=== PATIENT | female | born 1990 | race Caucasian/White ===

== ENCOUNTER 2019-12-25 18:00 | Emergency (ER) | payer OTHER, SELFPAY ==
[2019-12-25 18:07] VITALS: BP 116/67; PULSE 108; RESP 20; TEMP 36.7; O2SAT 100
--- NOTE | 2019-12-25 18:15 | ED.SKABFB ---
HPI - Skin/Abscess/Foreign Bdy General Chief complaint: Wound/Laceration Stated complaint: lt hand injury Time Seen by Provider: 12/25/19 18:15 Source: patient and RN notes reviewed History of Present Illness HPI narrative: Patient is a 29-year-old female that presents the urgent care with complaints of a laceration to both the fourth and fifth digits of the left hand. Patient states that it occurred last night around 5 PM and she saw her cousin, who is an ER physician, who placed glue to the lacerations and bandages. Patient states that they have been continuously seeping blood since then and she feels that she needs the wounds rechecked . No other acute complaints. No acute distress noted. Patient read the plan of care. Related Data Home Medications Medication Instructions Recorded Confirmed No Home Medications 12/25/19 12/25/19 Allergies Allergy/AdvReac Type Severity Reaction Status Date / Time Sulfa (Sulfonamide Allergy Mild Rash Verified 12/25/19 18:12 Antibiotics) Review of Systems Review of Systems: Narrative: CONSTITUTIONAL: Denies fever, chills, or sweats. EYES: Denies visual changes, redness, or discharge. ENT: Denies rhinorrhea, congestion, sore throat, or otalgia. CARDIOVASCULAR: Denies chest pain, palpitations, or edema. RESPIRATORY: Denies cough or dyspnea. GASTROINTESTINAL: Denies abdominal pain, nausea, vomiting, or diarrhea. GENITOURINARY: Denies dysuria or hematuria. SKIN: Reports of a laceration to the fourth and fifth digits of the left hand MUSCULOSKELETAL: Denies back pain, joint pain, or myalgia. NEUROLOGIC: Denies headache, numbness, or weakness. PMFSH Comments At the time of my signature, I reviewed and agree with the nursing past medical, surgical, social, and family history. There is no relevant family history pertinent to the patient complaint. Exam Narrative: Exam Narrative: GENERAL: This is a well-nourished, well-developed patient, in no apparent distress. HEAD: normocephalic, atraumatic. EYES: PERRL. Sclera clear/white. Vision is grossly intact. EARS: External ears normal NOSE: External nose normal with no obvious nasal discharge THROAT: Mucous membranes moist NECK: Neck supple CARDIOVASCULAR: Regular rate and rhythm without murmurs, gallops, or rubs. RESPIRATORY: Clear to auscultation. Breath sounds equal bilaterally. No wheezes, rales, or rhonchi. SKIN: 1 cm lacerations noted to both the distal palmar aspect of the fourth and fifth digits, approximated with Dermabond warm, intact with no suspicious lesions or rash, good texture and turgor. NEURO: awake, alert, and oriented to person, place and time. There were no obvious focal neurologic abnormalities. EXTREMITIES: No clubbing, cyanosis, or edema. Upper extremity left capillary refill less than 2 seconds Course Vital Signs Vital signs: Vital Signs Temperature 98.1 F 12/25/19 18:07 Pulse Rate 108 H 12/25/19 18:07 Respiratory Rate 12/25/19 18:07 Blood Pressure 116/67 12/25/19 18:07 Pulse Oximetry 100 12/25/19 18:07 Temperature 98.1 F 12/25/19 18:07 Pulse Rate 108 H 12/25/19 18:07 Respiratory Rate 12/25/19 18:07 Blood Pressure 116/67 12/25/19 18:07 Pulse Oximetry 100 12/25/19 18:07 Reviewed Procedures Laceration Laceration 1: Site: other (Fourth and fifth digits of the left hand) Side (If applicable): left Description: linear Local Anesthetic: none Pre-repair: other (Wounds had been closed with Dermabond prior to arrival) ====== Skin Level ====== Skin layer closed with: steri strips ====== Subcutaneous Layer ====== ====== Muscle Layer ====== ====== Tendon Layer ====== Dressing: Reinforced 1 cm glued Dermabond lacerations to the left fourth and fifth digits with 3 Steri-Strips per laceration and Covan. Patient tolerated well. Removed other dressing using technique care and normal saline. Wounds approx
--- NOTE | 2019-12-25 18:38 | PC.NURSE ---
1 cm lacerations to Rt 4th and 5th fingertips dorsally--dressings from yesterday after glued by relative soaked off--areas cleansed with NSS and technicare--steri strips applied to both and coban applied ---proceedure by Hernando De La Cruz [employer] SPECIALIST and dressings by Rhoda Fowler RT
== END 2019-12-25 18:42 | disposition home or self-care (01) ==
PROVIDERS: Emergency Provider Nurse Practitioner Family
DX: S61.215A Laceration without foreign body of left ring finger without damage to nail, initial encounter (principal); S61.217A Laceration without foreign body of left little finger without damage to nail, initial encounter; X58.XXXA Exposure to other specified factors, initial encounter
CPT/HCPCS: 99212; G0463

== ENCOUNTER 2019-12-27 15:03 | Emergency (ER) | payer OTHER, SELFPAY ==
[2019-12-27 15:09] VITALS: BP 108/57; PULSE 95; RESP 16; TEMP 36.6; O2SAT 99
--- NOTE | 2019-12-27 15:38 | ED.URI ---
HPI - URI/Sore Throat General Chief Complaint: Upper Respiratory Infection Stated Complaint: cough/chest congestion/runny nose Time Seen by Provider: 12/27/19 15:29 Source: patient and RN notes reviewed Mode of arrival: ambulatory Limitations: no limitations History of Present Illness HPI Narrative: Patient presents today complaining of nasal congestion with green nasal drainage, sinus pressure, cough, shortness of breath. Symptoms have been present for 2 weeks and symptoms have been worsening since onset. Denies fever. She has been taking Tylenol. Patient is currently 30 weeks , . MD elicited complaint: cough and nasal congestion Related Data Home Medications Medication Instructions Recorded Confirmed [id number] fumarate-FA tablet PO 12/27/19 [] fexofenadine [Cass Allergy] 180 mg PO DAILY 12/27/19 12/27/19 omega 9-pxb-slm-fish oil [Fish Oil] 1 cap PO DAILY 12/27/19 12/27/19 Allergies Allergy/AdvReac Type Severity Reaction Status Date / Time Sulfa (Sulfonamide Allergy Mild Rash Verified 12/25/19 18:12 Antibiotics) Review of Systems Review of Systems: Narrative: CONSTITUTIONAL: Denies body aches, fever, chills, or sweats. EYES: Denies visual changes, redness, or discharge. ENT: Denies rhinorrhea, sore throat, or otalgia.+ Nasal congestion, sinus pressure CARDIOVASCULAR: Denies chest pain, palpitations, or edema. RESPIRATORY: + Cough, shortness of breath GASTROINTESTINAL: Denies abdominal pain, nausea, vomiting, or diarrhea. GENITOURINARY: Denies dysuria or hematuria. SKIN: Denies rash, itching, or wounds. MUSCULOSKELETAL: Denies back pain, joint pain, or myalgia. NEUROLOGIC: Denies headache, numbness, tingling, or weakness. PSYCH: Denies depression or anxiety. PMFSH Comments At time of signature, I have reviewed and agree with nursing past medical, surgical, social and family history unless otherwise noted. Please see nursing chart for further information. There is no relevant family history pertinent to the presenting complaint Exam Narrative: Exam Narrative: GENERAL: Mildly ill-appearing, well-nourished, and in no acute distress. HEAD: Normocephalic, atraumatic. EYES: EOMI. No redness or drainage. Conjunctivae normal. ENT: Mucous membranes pink and moist. Nares congested. TMs normal bilaterally. Throat normal. Uvula midline. NECK: Normal AROM. Supple. No lymphadenopathy. CHEST: No respiratory distress. Clear to auscultation. HEART: Regular rate and rhythm. No murmur appreciated. Normal peripheral pulses. ABDOMEN: Soft, nontender, normal active bowel sounds. Gravid abdomen MUSCULOSKELETAL: No bony tenderness. EXTREMITIES: Normal range of motion. No edema. SKIN: Warm, dry, no rash. NEURO: No focal deficits. Alert and oriented x3. Gait steady. PSYCH: Normal affect. No signs of depression or anxiety. Course Vital Signs Vital signs: Vital Signs Temperature 97.9 F 12/27/19 15:09 Pulse Rate 95 12/27/19 15:09 Respiratory Rate 16 12/27/19 15:09 Blood Pressure 108/57 L 12/27/19 15:09 Pulse Oximetry 99 12/27/19 15:09 Temperature 97.9 F 12/27/19 15:09 Pulse Rate 95 12/27/19 15:09 Respiratory Rate 16 12/27/19 15:09 Blood Pressure 108/57 L 12/27/19 15:09 Pulse Oximetry 99 12/27/19 15:09 At time of signature, I have reviewed and agree with nursing past medical, surgical, social and family history unless otherwise noted. Please see nursing chart for further information. There is no relevant family history pertinent to the presenting complaint MDM - URI/Sore Throat Differential Diagnosis Differential diagnosis: Likely upper respiratory infection, otitis media, sinusitis, viral infection, bronchitis and other (Pneumonia) Critical Care Time Critical Care Time Critical Care Time: No Discharge Plan Discharge Clinical Impression: Bronchitis Upper respiratory infection Qualifiers: URI type: unspecified URI Qualified Code(s): J
== END 2019-12-27 15:46 | disposition home or self-care (01) ==
PROVIDERS: Emergency Provider Nurse Practitioner
DX: O99.513 Diseases of the respiratory system complicating pregnancy, third trimester (principal); Z3A.30 30 weeks gestation of pregnancy; J40 Bronchitis, not specified as acute or chronic; J06.9 Acute upper respiratory infection, unspecified
CPT/HCPCS: 99213; G0463

== ENCOUNTER 2020-02-27 06:31 | Inpatient (IN) | payer OTHER, SELFPAY ==
[2020-02-27] VITALS (68 sets, daily range): BP systolic 82–164; BP diastolic 39–81; PULSE 65–121; RESP 16; TEMP 36.6–37.1; O2SAT 98–100; BMI 30.4
[2020-02-27 07:48] LABS: Basophils Percent Auto 0.3 % (0.2-1.2); Eosinophils Absolute Auto 0.1 K/mm3 (0-0.3); Eosinophils Percent Auto 1.4 % (0-4.4); Hematocrit 38.6 % (37.0-47.0); Hemoglobin 13.1 g/dL (12.0-15.0); Immature Granulocyte Absolute 0.03 K/mm3 (0.00-0.031); Immature Granulocyte Percent A 0.4 % (0-0.5); Lymphocytes Absolute Auto 1.94 K/mm3 (0.9-3.2); Lymphocytes Percent Auto 27.2 % (18.3-44.2); Mean Corpuscular HGB Conc 33.9 g/dl (32-36); Mean Corpuscular Hemoglobin 31.9 pg (26-34); Mean Corpuscular Volume 93.9 fl (80-100); Mean Platelet Volume 11.1 fl (7.4-10.4); Monocytes Percent Auto 13.3 % (2.6-8.5); Neutrophils Absolute Auto 4.1 K/mm3 (1.3-6.7); Neutrophils Percent Auto 57.4 % (45.5-73.1); Platelet Count Result 175 k/mm3 (150-375); Red Blood Count 4.11 M/mm3 (4.2-5.4); Red Cell Distribution Width 13.2 % (11.5-14.5); White Blood Count 7.1 K/mm3 (4.5-10.0)
[2020-02-27] MEDS: LACTATED RINGERS 1,000 ML 125 ML IV CONT ×2 (08:15→14:03)
[2020-02-27] MEDS: OXYTOCIN 30 UNITS/NS 500 ML 30 UNITS/500 ML BAG IV CONT (08:16)
--- NOTE | 2020-02-27 08:31 | WPDOBADMIT ---
Obstetrics - Admit Note Admission Note: record reviewed. Additions to the history and/or subsequent changes in the physical findings follow. 30 y/o at 39 3/7 weeks here for induction of labor. GBS neg. H/o VAVD of baby weighing 8#3oz at 41 weeks gestation. AVSS NST reactive TOCO: contractions irregularly ABD soft, nontender, gravid, vertex EXT nontender Cervix 3/50/-2. AROM with clear fluid. A: IUP at 39 3/7 weeks with favorable cervix, desiring induction of labor. P: Oxytocin. Anticipate .
--- NOTE | 2020-02-27 13:03 | PM.OBPNLAB ---
Pain Control Date/time seen: 02/27/20 13:03 Comments: Feeling more pain. Pelvic Exam Comments: AVSS NST reactive TOCO: contractions every 3-4 min 3-4/50/-2 Assessment and Plan Comments: Continue labor.
--- NOTE | 2020-02-27 14:09 | WPDANESEPP ---
Anes - Eval Pre Procedure Procedure: labor epidural Date/Time: 02/27/20 14:09 Surgeon: Mikey Preop Diagnosis: Abd pain with contractions Pre Op Diagnosis: Induction of Labor Patient Data Age: 29 Gender: F Height: 5 ft 3 in Weight: 78 kg Last Vital Signs Temp 98.7 F 02/27/20 14:05 Pulse 98 02/27/20 14:01 BP 138/71 02/27/20 14:01 Allergies Allergy/AdvReac Type Severity Reaction Status Date / Time Sulfa (Sulfonamide Allergy Mild Rash Verified 12/25/19 18:12 Antibiotics) Home Medications Medication Instructions Recorded Confirmed Type [id number] fumarate-FA tablet PO 12/27/19 History [] amoxicillin-pot clavulanate 1 tablet PO Q12H 10 Days #20 tablet 12/27/19 Rx [Augmentin] fexofenadine [Cass Allergy] 180 mg PO DAILY 12/27/19 12/27/19 History omega 7-syf-gjl-fish oil [Fish Oil] 1 cap PO DAILY 12/27/19 12/27/19 History prednisone 40 mg PO DAILY 5 Days #10 tablet 12/27/19 Rx Laboratory Tests 02/27/20 02/27/20 02/27/20 07:42 07:42 07:42 WBC 7.1 K/mm3 K/mm3 (4.5-10.0) RBC 4.11 M/mm3 L M/mm3 (4.2-5.4) Hgb 13.1 g/dL g/dL (12.0-15.0) Hct 38.6 % % (37.0-47.0) MCV 93.9 fl fl (80-100) MCH 31.9 pg pg (26-34) MCHC 33.9 g/dl g/dl (32-36) RDW 13.2 % % (11.5-14.5) Plt Count 175 k/mm3 k/mm3 (150-375) MPV 11.1 fl H fl (7.4-10.4) Immature Gran % (Auto) 0.4 % % (0-0.5) Neut % (Auto) 57.4 % % (45.5-73.1) Lymph % (Auto) 27.2 % % (18.3-44.2) [place] % (Auto) 13.3 % H % (2.6-8.5) Eos % (Auto) 1.4 % % (0-4.4) Baso % (Auto) 0.3 % % (0.2-1.2) Lymph # (Auto) 1.94 K/mm3 K/mm3 (0.9-3.2) [place] # (Auto) 1.0 K/mm3 H K/mm3 (0.1-0.6) Eos # (Auto) 0.1 K/mm3 K/mm3 (0-0.3) Baso # (Auto) 0.0 K/mm3 K/mm3 (0.0-0.1) Abs Immat Gran (auto) 0.03 K/mm3 K/mm3 (0.00-0.031) Absolute Neuts (auto) 4.1 K/mm3 K/mm3 (1.3-6.7) Absolute Nucleated RBC 0.0 K/mm3 K/mm3 (0.0-0.012) Nucleated RBC % 0.0 % % (0.0-0.2) RPR Pending Blood Type A Positive Antibody Screen Negative Patient hx anesthesia problems: none Family hx anesthesia problems: none [facility] Past Medical History Medical History (Updated 02/27/20 @ 14:10 by Robert Vaz CRNA) Family History Family History Mother Hypertension Social History Social History Smoking status: Never smoker Substance use: never Gender identity (if verbalized by the patient): Female Spiritual care concerns: No Exam Day of Procedure 02/27/20 14:09 Patient weight: overweight Heart: regular rate and rhythm Lungs: clear to auscultation Airway: Mallampati scale class II Neurological: alert and oriented
[2020-02-27] MEDS: ONDANSETRON INJ 4 MG/2 ML VIAL IV PUSH (14:51)
--- NOTE | 2020-02-27 17:59 | PM.OBPNLAB ---
Pain Control Date/time seen: 02/27/20 17:59 Comments: Pushing. Pelvic Exam Comments: AVSS NST reactive TOCO: contraction every 2-3 min Cervix C/+2 Assessment and Plan Comments: Anticipate
--- NOTE | 2020-02-27 18:29 | P.PCNOB_ITS ---
OB - Delivery Note Procedure Delivery date: 02/27/20 Procedure: Induction of labor with Induction method: AROM and per pitocin protocol Delivery monitor: external FHT, external uterine and internal uterine Route of delivery: Laceration description: Perineal - 2nd Degree Delivery repair: vicryl (3-0) Specimen: Yes (cord blood) Estimated blood loss (mL): 310 Anesthesia type: Epidural Disposition: PACU Complications: None Narrative: 29 y/o at 39 3/7 weeks gestation who presented to the hospital for induction of labor. Oxytocin was administered intravenously. Amniotomy was performed with return of clear fluid. She received an epidural for pain control. Her labor progressed and her cervix dilated completely. She pushed with good effort and delivered the infant's head to the perineum, followed by the body. The nose and mouth were bulb suctioned. After a delay, the cord was clamped and cut. The infant was handed off the field. Cord blood was collected. The placenta delivered spontaneously and was grossly normal in appearance. The usual 3 vessel cord was noted. A second degree midline perineal laceration was sustained. This was reapproximated using 3 0 Vicryl in the usual layered fashion. Excellent hemostasis resulted as did excellent reapproximation of the normal anatomy. Needle and instrument counts were correct. The patient was taken to recovery room in stable condition. The went to the nursery in stable condition. I was present and scrubbed for the entire delivery. [place] Baby Date of : 02/27/20 Time of : 18:09 Weeks of gestation at delivery: 39 Infant gender: Female Weight (pounds): 8 Weight (ounces): 15 presentation: vertex position: Left Occiput Anterior Placenta delivery description: Spontaneous and Normal Configuration cord vessel description: 3 Vessels score one minute: 8 score five minutes: 9
--- NOTE | 2020-02-27 18:31 | PM.OBDSVD ---
DS: Diagnosis Discharge Diagnosis (1) (normal spontaneous vaginal delivery): Code(s): O80 - Encounter for full-term uncomplicated delivery Status: Acute OB - DS: Summary OB Procedures : None OB Procedures Intrapartum: Spontaneous Vag Delivery OB Procedures: : None Time Spent with Patient Time attestation: Total time spent providing and/or coordinating discharge services: DS: Data Data Completed and Pending Labs on day of discharge: Labs from last 24 hours 02/27/20 02/27/20 02/27/20 07:42 07:42 07:42 WBC 7.1 RBC 4.11 L Hgb 13.1 Hct 38.6 MCV 93.9 MCH 31.9 MCHC 33.9 RDW 13.2 Plt Count 175 MPV 11.1 H Immature Gran % (Auto) 0.4 Neut % (Auto) 57.4 Lymph % (Auto) 27.2 [place] % (Auto) 13.3 H Eos % (Auto) 1.4 Baso % (Auto) 0.3 Lymph # (Auto) 1.94 [place] # (Auto) 1.0 H Eos # (Auto) 0.1 Baso # (Auto) 0.0 Abs Immat Gran (auto) 0.03 Absolute Neuts (auto) 4.1 Absolute Nucleated RBC 0.0 Nucleated RBC % 0.0 RPR Pending Blood Type A Positive Antibody Screen Negative Discharge Plan Discharge Attending physician on discharge: Leonardo Jensen Discharging Clinician: Leonardo Jensen Patient Disposition: Home, Self-Care Activity: pelvic rest Diet: regular Discharge Instructions: Call or return if temperature above 100.4? F, increased abdominal pain, increased vaginal bleeding or any new problems. Stand Alone Forms: General Discharge Information Follow-up/Referrals: Leonardo Jensen MD [Physician] - (6 weeks) Discharge Medications: New ibuprofen 600 mg tablet 600 mg PO Q6H PRN (Reason: cramps) Qty: 30 RF: 0 No Action fexofenadine [Cass Allergy] 180 mg Tablet 180 mg PO DAILY RF: 0 28-800 mg-mcg Tablet PO RF: 0 omega 7-ooz-qwy-fish oil [Fish Oil] 1,000 mg (120 mg-180 mg) Capsule 1 cap PO DAILY RF: 0 amoxicillin-pot clavulanate [Augmentin] 875-125 mg tablet 1 tablet PO Q12H 10 Days Qty: 20 RF: 0 prednisone 20 mg tablet 40 mg PO DAILY 5 Days Qty: 10 RF: 0 Date of admission: 02/27/20 06:31 Primary Care Provider: UNKNOWN,DOCTOR Admitting Provider: Leonardo Jensen Attending physician on admission: Leonardo Jensen
[2020-02-27] MEDS: OXYTOCIN 30 UNITS/NS 500 ML 30 UNITS/500 ML BAG 125 UNITS (19:00)
[2020-02-27] MEDS: IBUPROFEN 600 MG TABLET PO (19:18)
[2020-02-27] MEDS: BENZOCAINE 20% AER SPR (*SP) 56 GM CAN 1 SPRAY TOPICAL (19:18)
[2020-02-27] MEDS: WITCH HAZEL 40 PADS 1 PAD TOPICAL (19:18)
--- NOTE | 2020-02-27 20:49 | OBPPTRN ---
Patient transferred to post room #288 via wheelchair. Support person present. Oriented to unit, room, information board, rooming in, admission packet and security measures. Patient verbalizes understanding. with patient.
[2020-02-27] MEDS: ACETAMINOPHEN 325 MG TABLET 650 MG PO (21:07)
[2020-02-28] MEDS: IBUPROFEN 600 MG TABLET PO ×3 (01:49→14:36)
[2020-02-28] MEDS: ACETAMINOPHEN 325 MG TABLET 650 MG PO ×2 (04:46→11:41)
[2020-02-28 06:11] LABS: Hematocrit 36.5 % (37.0-47.0)
[2020-02-28 07:30] VITALS: BP 91/63; PULSE 83; RESP 16; TEMP 36.7; O2SAT 96
[2020-02-28 07:35] LABS: Rapid Plasma Reagin Non-Reactive (NonReactive)
[2020-02-28 08:00] VITALS: PULSE 83; RESP 16; O2SAT 96
[2020-02-28] MEDS: MULTIVIT/MIN/PREN/FOL AC/IRON TABLET 1 TAB PO (09:02)
--- NOTE | 2020-02-28 11:20 | PC.NURSE ---
Mother is able to independently latch infant with appropriate positioning/alignment. She denies any nipple discomfort, is feeding as required and waking to feed if needed. has had several effective feedings in the past 24 hours, and is currently meeting outcomes for weight, output, jaundice and feeding frequencies. Mother states she feels confident to continue effective at home. Reviewed transition to breast milk, signs of adequate intake, and engorgement/relief. Instructed to call ICP if intake/output less than required. Reviewed regular medications mother is taking. Information provided per Lizbeth. Reviewed community resources on the [facility] website and in the Mom/Baby guide. Information on outpatient services provided. Mother has no further questions at this time.
--- NOTE | 2020-02-28 13:46 | PM.OBPNVD ---
OB - PN: Subj Subjective Date/time seen: 02/28/20 13:46 Narrative: Pain OK. Wants to go home. OB - PN: Obj Data Labs CBC & Chem 7: 02/28/20 04:52 Labs: Laboratory Results - last 24 hr 02/27/20 02/28/20 07:42 04:52 Hgb 12.0 Hct 36.5 L RPR Non-reactive OB - PN A/P Plan Comments: A: PPD#1, doing well. P: Routine care. OK to go home, to f/u 6 weeks. Exam Psych: Other: AVSS ABD soft, nontender, fundus firm EXT nontender
[2020-03-01 10:23] VITALS: BP 112/62; PULSE 90; RESP 18; TEMP 36.9
== END 2020-02-28 19:23 | disposition home or self-care (01) | DRG 807 ==
LOC: ANHLDR 18:32 → ANHOB2 21:21
PROVIDERS: Admitting Provider Obstetrics & Gynecology; Visit Provider Obstetrics & Gynecology
DX: O70.1 Second degree perineal laceration during delivery (principal); Z37.0 Single live birth; Z3A.39 39 weeks gestation of pregnancy; Z23 Encounter for immunization
CPT/HCPCS: 36415; 85014; 85018; 85025; 86592; 86850; 86900; 86901; A9270; J2405; J2590; J2795; J3010; J7120

== ENCOUNTER 2021-09-17 18:51 | Emergency (ER) | payer OTHER, SELFPAY ==
--- NOTE | 2021-09-17 18:57 | ED.EAR ---
HPI - Ear Problem General Chief complaint: Ear Stated complaint: R Ear pain Time Seen by Provider: 09/17/21 19:06 Source: patient History of Present Illness HPI Narrative: patient presents with right ear pain no other complaints of. no drainage from ear no hearing loss. Patient states 2 weeks ago she was on Augmentin and it did improve her ear pain. Patient states the pain has come back. Patient reports a feeling of fullness in her right ear MD Complaint: ear pain Related Data Allergies Allergy/AdvReac Type Severity Reaction Status Date / Time Sulfa (Sulfonamide Allergy Unknown Verified 09/17/21 19:12 Antibiotics) Review of Systems Review of Systems: CONSTITUTIONAL: Denies fever, chills, or sweats. EYES: Denies visual changes, redness, or discharge. ENT: Denies rhinorrhea, congestion, sore throat, or otalgia. CARDIOVASCULAR: Denies chest pain, palpitations, or edema. RESPIRATORY: Denies cough or dyspnea. GASTROINTESTINAL: Denies abdominal pain, nausea, vomiting, or diarrhea. GENITOURINARY: Denies dysuria or hematuria. SKIN: Denies rash or itching. MUSCULOSKELETAL: Denies back pain, joint pain, or myalgia. NEUROLOGIC: Denies headache, numbness, or weakness. PSYCHIATRIC: Denies anxiety or depression. PMFSH Comments At time of signature, agree with nursing past medical, surgical, social and family history. There is no relevant family history pertinent to the presenting complaint Exam Narrative: GENERAL: Well-appearing, well-nourished, and in no acute distress. HEAD: Normocephalic, atraumatic. EYES: PERRLA and EOMI. ENT: Nares clear, no rhinorrhea or epistaxis. Mucous membranes moist. Right TM bulging with moderate erythremia to canal left TM dullness no erythremia to canal NECK: Supple. CHEST: Clear to auscultation. No respiratory distress. HEART: Regular rate and rhythm. No murmur heard. Normal peripheral pulses. ABDOMEN: Soft, nontender, nondistended, normal active bowel sounds. EXTREMITIES: Normal range of motion. No edema. SKIN: Warm, dry, no rash. NEURO: No focal deficits. Alert and oriented x3. [place] Coma Scale Eye Opening: Spontaneous 4 [place] Coma Scale Motor: Obeys Commands 6 [place] Coma Scale Verbal: Oriented 5 [place] Coma Scale Total 15 Course Vital Signs Vital signs: Vital Signs Temperature 36.8 C 09/17/21 19:06 Pulse Rate 94 09/17/21 19:06 Respiratory Rate 14 09/17/21 19:06 Blood Pressure 131/62 09/17/21 19:06 Pulse Oximetry 100 09/17/21 19:06 Temperature 36.8 C 09/17/21 19:06 Pulse Rate 94 09/17/21 19:06 Respiratory Rate 14 09/17/21 19:06 Blood Pressure 131/62 09/17/21 19:06 Pulse Oximetry 100 09/17/21 19:06 Medical Decision Making Differential Diagnosis Differential Diagnosis: Otitis media, otitis externa, eustachian tube dysfunction Vital Signs Vital Signs: Vital Signs Temperature 36.8 C 09/17/21 19:06 Pulse Rate 94 09/17/21 19:06 Respiratory Rate 14 09/17/21 19:06 Blood Pressure 131/62 09/17/21 19:06 Pulse Oximetry 100 09/17/21 19:06 Temperature 36.8 C 09/17/21 19:06 Pulse Rate 94 09/17/21 19:06 Respiratory Rate 14 09/17/21 19:06 Blood Pressure 131/62 09/17/21 19:06 Pulse Oximetry 100 09/17/21 19:06 Critical Care Time Critical Care Time Critical Care Time: No Discharge Plan Discharge Clinical Impression: Otitis media Patient Disposition: Home, Self-Care Condition: Stable Instructions: Antibiotic Form, Ear Infection (AC) Additional Instructions: Use Flonase nasal spray 2 puffs each nostril 2 times a day Take antibiotic as prescribed with food until gone Follow-up with primary care provider in 3 to 4 days as needed If any new or worsening symptoms go to ER immediately for further evaluation Prescriptions: New fluticasone propionate 50 mcg/actuation spray,suspension 2 spray NASAL DAILY 14 Days Qty: 9.9 RF: 0 cefdinir 300 mg capsule 300 mg PO Q12H 7 Days Qty: 14
[2021-09-17 19:06] VITALS: BP 131/62; PULSE 94; RESP 14; TEMP 36.8; O2SAT 100
== END 2021-09-17 19:20 | disposition home or self-care (01) ==
PROVIDERS: Emergency Provider Nurse Practitioner Family
DX: H66.91 Otitis media, unspecified, right ear (principal)
CPT/HCPCS: 99213; G0463

== ENCOUNTER 2023-03-19 07:46 | Outpatient (CLI) | payer OTHER, SELFPAY ==
[2023-03-19 14:07] LABS: Alanine Aminotransferase 27 U/L (6-35); Albumin Level 4.5 g/dL (3.5-5.1); Alkaline Phosphatase 48 U/L (38-126); Anion Gap 6 mmol/L (8-16); Aspartate Amino Transferase 47 U/L (14-36); Bilirubin,Total 0.6 mg/dL (0.2-1.3); Blood Urea Nitrogen 15 mg/dL (7-17); Calcium 8.6 mg/dL (8.4-10.2); Carbon Dioxide 29 mmol/L (22-30); Chloride 102 mmol/L (98-107); Cholesterol 134 mg/dL (0-200); Estimated Glomerular Filt Rate > 60; Glucose 68 mg/dL (65-110); HDL Direct 47 mg/dL; Potassium 3.9 mmol/L (3.4-5.0); Sodium 137 mmol/L (137-145); Triglycerides 38 mg/dL (<150)
[2023-03-19 14:27] LABS: LDL Cholesterol Direct 74 mg/dL
[2023-03-19 14:43] LABS: Vitamin D 25 Hydroxy 48.8 ng/mL
[2023-03-19 15:16] LABS: Hepatitis C Virus Antibody Negative (Negative)
== END 2023-03-19 07:47 | disposition home or self-care (01) ==
LOC: ANHGOSHLAB 07:50
PROVIDERS: PCP Student in an Organized Health Care Education/Training Program; Visit Provider Student in an Organized Health Care Education/Training Program
DX: Z13.220 Encounter for screening for lipoid disorders (principal); Z13.29 Encounter for screening for other suspected endocrine disorder; Z13.228 Encounter for screening for other metabolic disorders; Z13.0 Encounter for screening for diseases of the blood and blood-forming organs and certain disorders involving the immune mechanism; Z00.00 Encounter for general adult medical examination without abnormal findings
CPT/HCPCS: 36415; 80053; 80061; 82306; 84443; 86803

== ENCOUNTER 2023-10-19 10:20 | Outpatient (CLI) | payer OTHER, SELFPAY ==
[2023-10-19 19:43] LABS: Basophils Absolute Auto 0.1 K/mm3 (0.0-0.1); Basophils Percent Auto 0.7 % (0.2-1.2); Eosinophils Absolute Auto 0.1 K/mm3 (0-0.3); Eosinophils Percent Auto 0.8 % (0-4.4); Hematocrit 43.7 % (37.0-47.0); Hemoglobin 14.3 g/dL (12.0-15.0); Immature Granulocyte Absolute 0.02 K/mm3 (0.00-0.031); Immature Granulocyte Percent A 0.2 % (0-0.5); Lymphocytes Absolute Auto 2.27 K/mm3 (0.9-3.2); Lymphocytes Percent Auto 25.4 % (18.3-44.2); Mean Corpuscular HGB Conc 32.7 g/dl (32-36); Mean Corpuscular Hemoglobin 30.5 pg (26-34); Mean Corpuscular Volume 93.2 fl (80-100); Mean Platelet Volume 10.6 fl (7.4-10.4); Monocytes Absolute Auto 0.8 K/mm3 (0.1-0.6); Monocytes Percent Auto 9.2 % (2.6-8.5); Neutrophils Absolute Auto 5.7 K/mm3 (1.3-6.7); Neutrophils Percent Auto 63.7 % (45.5-73.1); Platelet Count Result 236 k/mm3 (150-375); Red Blood Count 4.69 M/mm3 (4.2-5.4); Red Cell Distribution Width 12.3 % (11.5-14.5); White Blood Count 8.9 K/mm3 (4.5-10.0)
[2023-10-19 19:49] LABS: Alanine Aminotransferase 32 U/L (6-35); Alkaline Phosphatase 41 U/L (38-126); Anion Gap 16 mmol/L (8-16); Aspartate Amino Transferase 41 U/L (14-36); Bilirubin,Total 0.7 mg/dL (0.2-1.3); Blood Urea Nitrogen 14 mg/dL (7-17); Calcium 9.9 mg/dL (8.4-10.2); Carbon Dioxide 24 mmol/L (22-30); Chloride 99 mmol/L (98-107); Estimated Glomerular Filt Rate > 60; Glucose 98 mg/dL (65-110); Potassium 3.7 mmol/L (3.4-5.0); Sodium 139 mmol/L (137-145)
== END 2023-10-19 10:21 | disposition home or self-care (01) ==
PROVIDERS: PCP Student in an Organized Health Care Education/Training Program
DX: L85.3 Xerosis cutis (principal); Z79.899 Other long term (current) drug therapy
CPT/HCPCS: 36415; 80053; 84443; 85025

== ENCOUNTER 2023-11-07 08:26 | Emergency (ER) | payer OTHER, SELFPAY ==
[2023-11-07 08:45] VITALS: BP 111/69; PULSE 100; RESP 16; TEMP 36.9; O2SAT 100
--- NOTE | 2023-11-07 09:11 | ED.URI ---
HPI - URI/Sore Throat General Chief Complaint: Upper Respiratory Infection Stated Complaint: Strep Symptoms Time Seen by Provider: 11/07/23 09:06 Source: patient and RN notes reviewed Mode of arrival: ambulatory Limitations: no limitations History of Present Illness HPI Narrative: Patient presents today complaining of a 2 day history of sore throat. States she had COVID 2.5 weeks ago and is still getting over those symptoms as well. Continues to have some mild sore throat and cough. Currently rates her pain 4/10 and has been taking Tylenol and ibuprofen with some relief. Denies fever. Related Data Allergies Allergy/AdvReac Type Severity Reaction Status Date / Time Sulfa (Sulfonamide Allergy Mild Rash Verified 11/07/23 09:06 Antibiotics) Review of Systems Review of Systems: CONSTITUTIONAL: Denies body aches, fever, chills, or sweats. EYES: Denies visual changes, redness, or discharge. ENT: Denies rhinorrhea, or otalgia.+ sore throat, congestion CARDIOVASCULAR: Denies chest pain, palpitations, or edema. RESPIRATORY: Denies dyspnea.+ cough GASTROINTESTINAL: Denies abdominal pain, nausea, vomiting, or diarrhea. GENITOURINARY: Denies dysuria or hematuria. SKIN: Denies rash, itching, or wounds. MUSCULOSKELETAL: Denies back pain, joint pain, or myalgia. NEUROLOGIC: Denies headache, numbness, tingling, or weakness. PSYCH: Denies depression or anxiety. PMFSH Past Medical History Medical History Family History Family History Mother Hypertension Social History Social History Smoking status: Unknown if ever smoked Substance use: never Gender identity (if verbalized by the patient): Female Spiritual care concerns: No Comments At time of signature, I have reviewed and agree with nursing past medical, surgical, social and family history unless otherwise noted. Please see nursing chart for further information. There is no relevant family history pertinent to the presenting complaint Exam Narrative: GENERAL: Mildly ill-appearing, well-nourished, and in no acute distress. HEAD: Normocephalic, atraumatic. EYES: EOMI. No redness or drainage. Conjunctivae normal. ENT: Mucous membranes pink and moist. Nares congested. No rhinorrhea. TMs normal bilaterally. Throat mildly erythematous and edematous without exudate. Uvula midline. NECK: Normal AROM. Supple. Left anterior and posterior cervical chain lymphadenopathy. CHEST: No respiratory distress. Clear to auscultation. HEART: Regular rate and rhythm. No murmur appreciated. EXTREMITIES: Normal range of motion. No edema. SKIN: Warm, dry, no rash. Capillary refill normal. Normal skin turgor. NEURO: No focal deficits. Alert and oriented x3. Gait steady. PSYCH: Normal affect. No signs of depression or anxiety. Course Course Level of Care: Express Care Visit Vital Signs Vital signs: Vital Signs Temperature 98.4 F 11/07/23 08:45 Pulse Rate 100 11/07/23 08:45 Respiratory Rate 16 11/07/23 08:45 Blood Pressure 111/69 11/07/23 08:45 Pulse Oximetry 100 11/07/23 08:45 Temperature 98.4 F 11/07/23 08:45 Pulse Rate 100 11/07/23 08:45 Respiratory Rate 16 11/07/23 08:45 Blood Pressure 111/69 11/07/23 08:45 Pulse Oximetry 100 11/07/23 08:45 Reviewed MDM - URI/Sore Throat MDM Narrative Medical decision making narrative: Rapid strep positive. Prescription for amoxicillin sent to pharmacy. Anticipatory guidance given. Differential Diagnosis Differential diagnosis: Likely upper respiratory infection, sinusitis, viral infection, pharyngitis and other (Strep throat) Lab Data Attestation: I reviewed the patient's lab results. Labs: Strep Screen Positive Group A Strep *(Ref
== END 2023-11-07 09:20 | disposition home or self-care (01) ==
PROVIDERS: Emergency Provider Nurse Practitioner; PCP Student in an Organized Health Care Education/Training Program
DX: J02.0 Streptococcal pharyngitis (principal); Z86.16 Personal history of COVID-19
CPT/HCPCS: 87880; 99213; G0463

== ENCOUNTER 2024-03-07 16:18 | Emergency (ER) | payer OTHER, SELFPAY ==
[2024-03-07 16:28] VITALS: BP 104/64; PULSE 84; RESP 16; TEMP 36.8; O2SAT 100
--- NOTE | 2024-03-07 19:07 | PC.NURSE ---
1650- pt states that she has to leave to [employer] pick[employer] her children, and she is hoping to make it back here [facility] to get her results and meds. pt left in stable condition before seeing the provider.
== END 2024-03-07 16:50 | disposition left against medical advice (07) ==
LOC: EXPGOSH 16:20
PROVIDERS: Emergency Provider Registered Nurse; PCP Student in an Organized Health Care Education/Training Program
DX: Z53.21 Procedure and treatment not carried out due to patient leaving prior to being seen by health care provider (principal)
CPT/HCPCS: 99199

== ENCOUNTER 2024-03-07 18:46 | Emergency (ER) | payer OTHER, SELFPAY ==
[2024-03-07 19:03] VITALS: BP 110/68; PULSE 86; RESP 16; TEMP 36.8; O2SAT 100
--- NOTE | 2024-03-07 19:03 | ED.GENADULT ---
HPI - General Adult General Chief complaint: Upper Respiratory Infection Stated complaint: Sore Throat Time Seen by Provider: 03/07/24 19:03 Source: patient, RN notes reviewed and old records reviewed Mode of arrival: ambulatory Limitations: no limitations History of Present Illness HPI narrative: 33 year presents Express Care with complaints OF SORE THROAT SINCE WEDNESDAY WITH PAIN GETTING WORSE TODAY. PATIENT REPORTS HISTORY OF STREP THROAT FREQUENTLY WITH LAST EPISODE IN OCTOBER. PATIENT REPORTS THAT SHE HAS BEEN TAKING TYLENOL AND IBUPROFEN FOR HER SYMPTOMS MD complaint: SORE THROAT Onset (ago): day(s) (2) Severity: moderate Severity scale (1-10): 5 Treatments prior to arrival: NSAID and other (Tylenol) Related Data Allergies Allergy/AdvReac Type Severity Reaction Status Date / Time Sulfa (Sulfonamide Allergy Mild Rash Verified 03/07/24 17:06 Antibiotics) Review of Systems Review of Systems: CONSTITUTIONAL: Denies malaise, chills, sweats, or fever. EYES: Denies visual changes, redness, or discharge. ENT: Reports rhinorrhea, congestion, sinus pain,no otalgia and POSITIVE FOR sore throat. CARDIOVASCULAR: Denies chest pain, palpitations, or edema. RESPIRATORY: Reports cough.? Denies dyspnea. GASTROINTESTINAL: Denies abdominal pain, nausea, vomiting, diarrhea SKIN: Denies rash or itching. MUSCULOSKELETAL: Denies myalgia. NEUROLOGIC: Denies headache. All systems reviewed & are unremarkable except as noted in HPI and below PMFSH Past Medical History Medical History (Updated 03/09/24 @ 10:04 by La Celis NP) Strep throat Surgical History Surgical History (Updated 03/09/24 @ 10:07 by La Celis NP) History of tonsillectomy Status post wisdom tooth extraction Family History Family History Mother Hypertension Social History Social History Smoking status: Unknown if ever smoked Substance use: never Gender identity (if verbalized by the patient): Female Spiritual care concerns: No Comments At time of signature, agree with nursing past medical, surgical, social and family history. There is no relevant family history pertinent to the presenting complaint Exam Narrative: GENERAL: Well-appearing, well-nourished, and in no acute distress. HEAD: Normocephalic EYES: PERRLA, conjunctivae clear ENT: Nares clear, turbinates edematous and erythematous, clear discharge. Mucous membranes moist. TM pearly perez with dull light reflex bilaterally; no tragal tenderness. Oropharynx erythematous without lesions. Tonsils not present and throat without exudate,red and swollen, no drooling, no hoarseness, no trismus, uvula midline.POST NASAL DRAINAGE NECK: Supple. lymphadenopathy CHEST: Clear to auscultation, breath sounds equal. No wheezing, rhonchi, rales, or stridor. No respiratory distress, speaks in full sentences.NO COUGH NOTED SAO2 100% ON ROOM AIR HEART: Regular rate and rhythm. No murmur heard. SKIN: Warm, dry, no rash. NEURO: Alert and oriented x3. PSYCH: Normal mood and affect Course Course Emergency Course: Patient is aware of diagnosis, understands and agrees to treatment plan.? Anticipatory guidance given.? Patient agrees to follow-up as directed and is aware of reasons to seek care at the emergency department. Portions of this record may have been created with voice recognition software Level of Care: Express Care Visit Vital Signs Vital signs: Vital Signs Temperature 36.8 C 03/07/24 19:03 Pulse Rate 86 03/07/24 19:03 Respiratory Rate 16 03/07/24 19:03 Blood Pressure 110/68 03/07/24 19:03 Pulse Oximetry 100 03/07/24 19:03 Temperature 36.8 C 03/07/24 19:03 Pulse Rate 86 03/07/24 19:03 Respiratory Rate 16 03/07/24 19:03 Blood Pressure 110/68 03/07/24 19:03 Pulse Oximetry 100
== END 2024-03-07 19:14 | disposition home or self-care (01) ==
PROVIDERS: Emergency Provider Registered Nurse; PCP Student in an Organized Health Care Education/Training Program
DX: J02.0 Streptococcal pharyngitis (principal)
CPT/HCPCS: 87880; 99213; G0463

== ENCOUNTER 2024-06-05 12:00 | Emergency (ER) | payer OTHER, SELFPAY ==
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
[2024-06-05 12:01] VITALS: BP 138/77; PULSE 84; RESP 16; TEMP 36.3; O2SAT 99
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
[2024-06-05] MEDS: IBUPROFEN 600 MG TABLET PO (14:13)
== END 2024-06-05 15:54 | disposition home or self-care (01) ==
PROVIDERS: Emergency Provider Emergency Medicine; PCP Student in an Organized Health Care Education/Training Program
DX: M54.50 Low back pain, unspecified (principal); V43.52XA Car driver injured in collision with other type car in traffic accident, initial encounter
CPT/HCPCS: 72100; 81025; 99283; A9270

== ENCOUNTER 2024-10-18 08:22 | Outpatient (CLI) | payer OTHER, SELFPAY | END 2024-10-18 08:23 | disposition home or self-care (01) | LOC: ANHGOSHLAB 08:30 | PROVIDERS: PCP Student in an Organized Health Care Education/Training Program | DX: Z34.80 Encounter for supervision of other normal pregnancy, unspecified trimester (principal) | CPT/HCPCS: 36415; 84702 ==

== ENCOUNTER 2024-10-19 08:35 | Emergency (ER) | payer OTHER, SELFPAY ==
--- NOTE | 2024-10-19 08:54 | ED_ITS ---
HPI - URI/Sore Throat General Chief Complaint: Upper Respiratory Infection Stated Complaint: sorethroat Time Seen by Provider: 10/19/24 08:57 Source: patient, RN notes reviewed and old records reviewed Mode of arrival: ambulatory Limitations: no limitations History of Present Illness HPI Narrative: 34 year old female who presents to [facility] care with complaints of 2 day history of sore throat with past history of strep throat reported. Patient reports that she is 4-6 weeks and has not taken any OTC medications for her symptoms. Patient reports that she has some pain and swelling to her lymph nodes in her neck with greatest to left side. Patient denies any cough or any known fevers. MD elicited complaint: sore throat Onset (ago): day(s) (2) Severity: moderate Able to tolerate fluids by mouth: Yes Treatments prior to arrival: none Related Data Home Medications Medication Instructions Recorded Confirmed vits no.126-ferrous fum 1 tablet PO DAILY 10/19/24 10/19/24 28 mg iron-folic acid 800 mcg tablet (Classic ) Allergies Allergy/AdvReac Type Severity Reaction Status Date / Time Sulfa (Sulfonamide Allergy Mild Rash Verified 10/19/24 09:04 Antibiotics) Review of Systems Review of Systems: CONSTITUTIONAL:Reports malaise, chills, sweats, or fever. EYES: Denies visual changes, redness, or discharge. ENT: Reports rhinorrhea, congestion, no sinus pain,no otalgia and positive for sore throat. CARDIOVASCULAR: Denies chest pain, palpitations, or edema. RESPIRATORY: Reports no cough.? Denies dyspnea. GASTROINTESTINAL: Denies abdominal pain, nausea, vomiting, diarrhea SKIN: Denies rash or itching. MUSCULOSKELETAL: Denies myalgia. NEUROLOGIC: Denies headache. All systems reviewed & are unremarkable except as noted in HPI and below PMFSH Past Medical History Medical History Strep throat Surgical History Surgical History History of tonsillectomy Status post wisdom tooth extraction Family History Family History Mother Hypertension Social History Social History Smoking status: Unknown if ever smoked Substance use: never Gender identity (if verbalized by the patient): Female Spiritual care concerns: No Comments At time of signature, agree with nursing past medical, surgical, social and family history. There is no relevant family history pertinent to the presenting complaint Exam Narrative: GENERAL: Well-appearing, well-nourished, and in no acute distress. HEAD: Normocephalic EYES: PERRLA, conjunctivae clear ENT: Nares clear, turbinates edematous and erythematous, clear discharge. Mucous membranes moist. TM pearly perez with dull light reflex bilaterally; no tragal tenderness. Oropharynx erythematous without lesions. Tonsils not present and without exudate, no drooling, no hoarseness, no trismus, uvula midline, post nasal drainage present NECK: Supple.positive for lymphadenopathy left >right CHEST: Clear to auscultation, breath sounds equal. No wheezing, rhonchi, rales, or stridor. No respiratory distress, speaks in full sentences.SAO2 100% on room air HEART: Regular rate and rhythm. No murmur heard. SKIN: Warm, dry, no rash. NEURO: Alert and oriented x3. PSYCH: Normal mood and affect Course Course Emergency Course: Patient is aware of diagnosis, understands and agrees to treatment plan.? Anticipatory guidance given.? Patient agrees to follow-up as directed and is aware of reasons to seek care at the emergency department. Portions of this record may have been created with voice recognition software Level of Care: Express Care Visit Vital Signs Vital signs: Vital Signs Temperature 36.8 C 10/19/24 08:55 Pulse Rate 98 10/19/24 08:55 Respiratory Rate 16 10/19/24 08:55 Blood Pressure 99/63 L 10/19/24 08:55 Pulse Oximetry 100 10/19/24 08:55 Temperature 36.8 C 10/19/24 08:55 Pulse Rate 98 10/19/24 08:55 Respiratory Rate 16 10/19/24 08:55 Blood Pressure 99/63 L 10/19/24 08:55 Pulse Oximetry 100 10/19/24 08:55 Reviewed MDM - URI/Sore Throat MDM Narrative Medical decision making narrative: Differential diagnosis considered: Doll virus, strep pharyngitis, allergic rhinitis, upper respiratory tract infection, sinusitis, rhinosinusitis, nasopharyngitis. viral pharyngitis, otitis media, otitis externa, pneumonia, bronchitis, viral cough syndrome, viral syndrome, and influenza.? Exam findings show no acute concerns or changes; patient is non-toxic appearing and is in no distress.? Patient is appropriate for outpatient treatment and follow-up. Differential Diagnosis Differential diagnosis: Likely upper respiratory infection, viral infection, pharyngitis and other (strep pharyngitis) Medical Records Attestation: I reviewed the patient's medical records. Lab Data Attestation: I reviewed the patient's lab results. Lab results narrative: strep screen positive Labs: Lab Results 10/19/24 Range/Units 08:50 POC Grp A Strep Screen Positive (Negative) Critical Care Time Critical Care Time Critical Care Time: No Discharge Plan Discharge Clinical Impression: Acute streptococcal pharyngitis Patient Disposition: Home, Self-Care Condition: Stable Instructions: Antibiotic Form, Strep Throat (ED) Additional Instructions: You tested positive for Group A strep . Take the entire course of antibiotics. Throw away your current toothbrush and begin using a new toothbrush in 48 hours in order to prevent re-infection. Sanitize all reusable water bottles . Do not share items with others. Salt water gargles may alleviate some of the throat discomfort. You can take Tylenol per the package instructions for pain/fever. list of medications given to patient which are considered safe with If your symptoms persist, change or worsen significantly before you can contact your personal physician then please, without delay, go to the emergency department for further evaluation. Follow-up with PCP in 7-10 days or sooner if needed Prescriptions: New amoxicillin 500 mg capsule 500 mg PO Q12H Qty: 20 0RF Rx Instructions: take all doses of oral medication No Action Classic 28 mg iron- 800 mcg Tablet 1 tablet PO DAILY Follow-up/Referrals: Shantel,DO [place] [Primary Care Provider] - Stand Alone Forms: Work/School Release IP Time of Disposition: 09:15 Quality [place] Coma Scale Eyes: Open Verbal: Oriented and Alert Motor: Follows Commands [place] Coma Total Score: 15
[2024-10-19 08:55] VITALS: BP 99/63; PULSE 98; RESP 16; TEMP 36.8; O2SAT 100
[2024-10-19 09:28] LABS: EDSTREPNEGPOS1 Positive (Negative)
== END 2024-10-19 09:20 | disposition home or self-care (01) ==
PROVIDERS: Emergency Provider Registered Nurse; PCP Student in an Organized Health Care Education/Training Program
DX: J02.0 Streptococcal pharyngitis (principal); O99.511 Diseases of the respiratory system complicating pregnancy, first trimester; Z3A.00 Weeks of gestation of pregnancy not specified
CPT/HCPCS: 87880; 99213; G0463

== ENCOUNTER 2024-11-30 17:29 | Emergency (ER) | payer OTHER, SELFPAY ==
[2024-11-30 17:41] VITALS: BP 117/78; PULSE 98; RESP 16; TEMP 36.5; O2SAT 100
--- NOTE | 2024-11-30 18:02 | ED.URI ---
HPI - URI/Sore Throat General Chief Complaint: Upper Respiratory Infection Stated Complaint: cough,head pain Time Seen by Provider: 11/30/24 18:02 History of Present Illness HPI Narrative: 34 female presented for complaint of nasal congestion, headache and cough for over 1 week. Denies shortness of breath, wheezing, nausea, vomiting, diarrhea or lethargy. Taking Tylenol for symptoms. Patient is approximately 11 weeks gestation. Scheduled with OBGYN in 4 days. Related Data Home Medications ?Medication ?Instructions ?Recorded ?Confirmed ?Last Taken ?Type vits no.126-ferrous fum 1 tablet PO DAILY 10/19/24 10/19/24 Unknown History 28 mg iron-folic acid 800 mcg tablet (Classic ) Allergies Allergy/AdvReac Type Severity Reaction Status Date / Time Sulfa (Sulfonamide Allergy Mild Rash Verified 11/30/24 17:52 Antibiotics) Review of Systems Review of Systems: CONSTITUTIONAL: Denies body aches, fever, chills, or sweats. EYES: Denies visual changes, redness, or discharge. ENT: Reports rhinorrhea, congestion, denies sore throat CARDIOVASCULAR: Denies chest pain, palpitations, or edema. RESPIRATORY: reports cough Denies dyspnea. GASTROINTESTINAL: Denies abdominal pain, nausea, vomiting, or diarrhea. MUSCULOSKELETAL: Denies back pain, joint pain, or myalgia. NEUROLOGIC: reports headache PMFSH Past Medical History Medical History Strep throat Surgical History Surgical History History of tonsillectomy Status post wisdom tooth extraction Family History Family History Mother Hypertension Social History Social History Smoking status: Unknown if ever smoked Substance use: never Gender identity (if verbalized by the patient): Female Spiritual care concerns: No Exam Narrative: GENERAL: well-appearing, no acute distress. EYES: conjunctivae clear ENT: Mucous membranes moist. TM pearly perez with normal light reflex bilaterally; no tragal tenderness. Oropharynx not erythematous without lesions. No drooling, no hoarseness, no trismus, uvula midline. No tripod positioning, hot potato voice, or soft palate swelling. NECK: Supple. No lymphadenopathy CHEST: Clear to auscultation, breath sounds equal. No respiratory distress, speaks in full sentences. HEART: Regular rate and rhythm. No murmur heard. SKIN: Warm, dry, no rash. NEURO: Alert and oriented x3. Course Course Emergency Course: Patient is aware of diagnosis, understands and agrees to treatment plan. Anticipatory guidance given. Patient agrees to follow-up as directed and is aware of reasons to seek care at the emergency department. Portions of this record may have been created with voice recognition software Level of Care: Express Care Visit Vital Signs Vital signs: Vital Signs Temperature 97.7 F 11/30/24 17:41 Pulse Rate 98 11/30/24 17:41 Respiratory Rate 16 11/30/24 17:41 Blood Pressure 117/78 11/30/24 17:41 Pulse Oximetry 100 11/30/24 17:41 Temperature 97.7 F 11/30/24 17:41 Pulse Rate 98 11/30/24 17:41 Respiratory Rate 16 11/30/24 17:41 Blood Pressure 117/78 11/30/24 17:41 Pulse Oximetry 100 11/30/24 17:41 MDM - URI/Sore Throat MDM Narrative Medical decision making narrative: Discussed physical exam findings consistent with URI. Reviewed prescription. Advise supportive treatments. Patient is appropriate for outpatient treatment and follow-up. Differential Diagnosis Differential diagnosis: Likely upper respiratory infection, otitis media, sinusitis, viral infection and pharyngitis Discharge Plan Discharge Clinical Impression: Upper respiratory infection Qualifiers: URI type: unspecified URI Qualified Code(s): J06.9 - Acute upper respiratory infection, unspecified Patient Disposition: Home, Self-Care Condition: Stable Instructions: Antibiotic Form, Upper Respiratory Infection (ED) Additional Instructions: Recommend saline nasal mist and Zyrtec for sinus congestion Tylenol 1000mg every 8 hours as needed for pain Symptomatic treatment includes: rest, push fluids, and increase humidity of the air at home. Follow up with your primary care provider and obgyn Go to the ER for worsening symptoms or concerns. Patient Language: [place] Prescriptions: New amoxicillin-pot clavulanate 875-125 mg tablet 1 tablet PO Q12H 7 Days Qty: 14 0RF No Action Classic 28 mg iron- 800 mcg Tablet 1 tablet PO DAILY Follow-up/Referrals: Shantel,DO [place] [Primary Care Provider] - Time of Disposition: 18:15
== END 2024-11-30 18:23 | disposition home or self-care (01) ==
PROVIDERS: Emergency Provider Nurse Practitioner Family; PCP Student in an Organized Health Care Education/Training Program
DX: O99.511 Diseases of the respiratory system complicating pregnancy, first trimester (principal); Z3A.11 11 weeks gestation of pregnancy; J06.9 Acute upper respiratory infection, unspecified
CPT/HCPCS: 99213; G0463

== ENCOUNTER 2025-01-17 10:45 | Outpatient (CLI) | payer OTHER, SELFPAY ==
--- OUTSIDE RECORDS SUMMARY | 2025-01-17 10:54 | XMS_ITS | Encounter Summary ---
Author Organization [facility] Address [address] [place] [address] Care Team Providers Care Gaming Manager Name Role Phone Troy Funes DO Primary Care Provider + Encounter Details Date Type Department Care Team (Late st Contact Info) Description 10/26/2023 Interventional Imagingt Message Enc [facility] Medical Group Family & Internal Medicine [facility] [address] [place] [address] Troy Funes DO [address] [place] [address] Dizziness and motion sickness Social History Tobacco Use Types Packs/Day Years Used Date Smoking Tobacco: Never Passive Smoke Exposure: Never Smokeless Tobacco: Never Alcohol Use Standard Drinks/Week Comments Not Currently 0 (1 standard drink = 0.6 oz pur e alcohol) PHQ-2 Answer Date Recorded Patient Health Questionnaire-2 Score 0 03/17/2023 Comments No Sex and Gender Information Value Date Recorded Sex Assigned at Not on file Legal Sex Female 2:45 PM GIVING OFFICER Gender Identity Not on file Sexual Orientation Not on file 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
--- OUTSIDE RECORDS SUMMARY | 2025-01-17 10:54 | XMS_ITS | Referral Summary ---
Author Organization [facility] [address] [facility] Address [address] [place] [address] Care Team Providers Care Facility Environmental Technician Name Role Phone No, Physician Primary Care Provider [phone] Allergies Active Allergy Reactions Criticality Noted Date Comments Sulfa (Sulfonamide Antibiotics) Unknown 01/30/2020 Had reaction when younger Medications No known medications Active Problems No known active problems Social History Tobacco Use Types Packs/Day Years Used Date Smoking Tobacco: Never Smokeless Tobacco: Never Personal Safety Answer Date Recorded Getting School Help Needed Not on file 11/20 Comments Unknown Sex and Gender Information Value Date Recorded Sex Assigned at Not on file Legal Sex Female 9:31 AM STABLE HAND Gender Identity Not on file Sexual Orientation Not on file Last Filed Vital Signs Vital Sign Reading Time Taken Comments Blood Pressure 104/50 03/27/2023 8:22 AM CDT Pulse 86 03/27/2023 8:22 AM CDT Temperature 36.4 C (97.5 F) 03/27/2023 8:22 AM CDT Respiratory Rate 16 03/27/2023 8:22 AM CDT Oxygen Saturation 98% 03/27/2023 8:22 AM CDT Inhaled Oxygen Concentration - - Weight 63.5 kg (140 lb) 03/27/2023 8:22 AM CDT Height 160 cm (5' 3 ) 03/27/2023 8:22 AM CDT Body Mass Index 24.8 03/27/2023 8:22 AM CDT Plan of Treatment Not on file Insurance [facility] Care Teams Facility Environmental Technician Relationship Specialty Start Date End Date No, Physician PCP - General 12/04/19
--- OUTSIDE RECORDS SUMMARY | 2025-01-17 10:54 | XMS_ITS | Referral Summary ---
Author Organization [facility] Address [address] [place] [address] Care Team Providers Care Network Designer Name Role Phone Unavailable Primary Care Provider Unavailabl e Source Comments [facility] Affiliates and Associated Physician Practices is amultiple site organization consisting of ambulatory clinics and hospital sitesin [place], [place], [place] and [place]. This disclosure is being madepursuant to the Care Everywhere program and may not contain all information available regarding this patient. Last updated 18.[facility] Social History Tobacco Use Types Packs/Day Years Used Date Smoking Tobacco: Never Assessed Sex and Gender Information Value Date Recorded Sex Assigned at Not on file Gender Identity Not on file Sexual Orientation Not on file Plan of Treatment Not on file
--- OUTSIDE RECORDS SUMMARY | 2025-01-17 10:54 | XMS_ITS | Clinical Summary ---
Author Organization [facility] Address [address] [place] [address] Care Team Providers Care Resident Program Specialist Name Role Phone No, Physician Primary Care Provider [phone] Allergies Active Allergy Reactions Criticality Noted Date Comments Sulfa (Sulfonamide Antibiotics) Unknown 01/30/2020 Had reaction when younger Medications No known medications Active Problems No known active problems Surgical History Surgery Date Site/Laterality Comments NO PAST SURGERIES Medical History Medical History Date Comments No pertinent past medical history Social History Tobacco Use Types Packs/Day Years Used Date Smoking Tobacco: Never Smokeless Tobacco: Never Personal Safety Answer Date Recorded Getting School Help Needed Not on file 11/20 Comments Unknown Sex and Gender Information Value Date Recorded Sex Assigned at Not on file Legal Sex Female 9:31 AM ED TRANSPORTER Gender Identity Not on file Sexual Orientation Not on file Obstetrics History Last Filed Vital Signs Vital Sign Reading [...] 03/27/2023 8:22 AM CDT Plan of Treatment Health Maintenance Due Date Last Done Comments Cervical Cancer Screening 1991 Depression Screening 1991 Hepatitis C Screening 1991 Regular Well Visit/Exam 18-64 2009 Varicella Vaccines (2 of 2 - 13+ 2-dose series) 08/20/2015 07/23/2015 Influenza Vaccine (#1) 2024 9, 10/06/2018, 10/28/2017, Additional history exists DTaP/Tdap/Td Vaccine (10 - Td or Tdap) 01/29/2030 01/30/2020, 05/05/2018, 03/18/2015, Additional history exists Hepatitis B Screening Completed 03/17/2001 , 12/09/2000, 10/07/2000 HPV Vaccines Completed 06/09/2007, 06/2007, 12/09/2006 Pneumococcal vaccine <65 Aged Out No longer eligible based on patient's age to complete this topic Insurance [facility] Care Teams Resident Program Specialist Relationship Specialty Start Date End Date No, Physician PCP - General 12/04/19
--- OUTSIDE RECORDS SUMMARY | 2025-01-17 10:54 | XMS_ITS | Clinical Summary ---
Author Organization [facility] Address [address] [facility] [place] [address] Care Team Providers Care Interior Design Principal Name Role Phone Unavailable Primary Care Provider Unavailabl e Source Comments [facility],non-owned Affiliates and Associated Physician Practices is amultiple site organization consisting of ambulatory clinics and hospital sitesin [place], [place], [place] and [place]. This disclosure is being madepursuant to the Care Everywhere program and may not contain all information available regarding this patient. Last updated 18.[facility] Social History Tobacco Use Types Packs/Day Years Used Date Smoking Tobacco: Never Assessed Sex and Gender Information Value Date Recorded Sex Assigned at Not on file Gender Identity Not on file Sexual Orientation Not on file Plan of Treatment Health Maintenance Due Date Last Done Comments PAP SMEAR 1991 HIV SCREENING 2006 HEPATITIS C SCREENING 05/10/2009 DTAP/TDAP/TD VACCINES (1 - Tdap) 2010 HEPATITIS B VACCINE (1 of 3 - 19+ 3-dose series) 2010 COVID-19 VACCINE ( - 2023-2 5 season) 2024 INFLUENZA VACCINE (#1) 2024 DEPRESSION SCREENING 11/29/2024 ZOSTER VACCINE (1 of 2) 2041 HIB VACCINE Aged Out No longer eligi ble based on patient's age to complete this topic HPV VACCINE Aged Out No longer eligi ble based on patient's age to complete this topic MENINGOCOCCAL (Group B) VACCINE Aged Out No longer eligible based on patient's age to complete this topic MENINGOCOCCAL VACCINE Aged Out No jose de jesus marlon eligible based on patient's age to complete this topic PNEUMOCOCCAL VACCINE Aged Out No long er eligible based on patient's age to complete this topic
--- OUTSIDE RECORDS SUMMARY | 2025-01-17 10:54 | XMS_ITS | Encounter Summary ---
Author Organization [facility] Address [address] [place] [address] Care Team Providers Care Gun Repair Clerk Name Role Phone Troy Funes DO Primary Care Provider + Encounter Details Date Type Department Care Team (Late st Contact Info) Description 06/28/2023 MyChart Message Enc [facility] Medical Group Family & Internal Medicine [facility] [address] [place] [address] Troy Funes DO [address] [place] [address] Sellers eye Social History Tobacco Use Types Packs/Day Years [...] on file Legal Sex Female 2:45 PM ENDBAND SIZER Gender Identity Not on file Sexual Orientation Not on file 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 No action necessary on our part. * NURIS Bishop - 06/28/2023 12:34 PM CDT We can send erythromycin opth ointment for her to use at hs x 7 nights Dsp 1 tube documented in this encounter Plan of Treatment Not on file documented as of this encounter Visit Diagnoses Diagnosis Acute eye pain- Primary Acute bacterial conjunctivitis of both eyes documented in this encounter Additional Health Concerns Assessment Noted Time PHQ-9 Depression Total Score: 1 10/15/20 22 12:59 PM ENDBAND SIZER documented as of this encounter Care Teams Gun Repair Clerk Relationship Specialty Start Date End Date Troy Funes DO [address] [place] [address] PCP - General FAMILY PRACTICE 01/30/20 documented as of this encounter
--- OUTSIDE RECORDS SUMMARY | 2025-01-17 10:54 | XMS_ITS | Encounter Summary ---
Author Organization [facility] Address [address] [place] [address] Care Team Providers Care Hot Mill Supervisor Name Role Phone Troy Funes DO Primary Care Provider + Reason for Visit * Reason Onset Date Comments Question 11/08/2024 Encounter Details Date Type Department Care Team (Late st Contact Info) Description 11/08/2024 discoapi Message Enc [facility] Medical Group Family & Internal Medicine [facility] [address] [place] [phone] Troy Funes DO [address] [place] [address] Strep throat Social History Tobacco Use Types Packs/Day Years Used Date Smoking Tobacco: Never Passive Smoke Exposure: Never Smokeless Tobacco: Never Alcohol Use Standard Drinks/Week Comments Not Currently 0 (1 standard drink = 0.6 oz pur e alcohol) PHQ-2 Answer Date Recorded Patient Health Questionnaire-2 Score 0 10/16/2024 Comments Yes Sex and Gender Information Value Date Recorded Sex Assigned at Not on file Legal Sex Female 2:45 PM INFORMATION SYSTEMS PROFESSOR Gender Identity Not on file Sexual Orientation Not on file 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 RMATION SYSTEMS PROFESSOR * Kim Ghosh - 11/09/2024 1:26 PM CST Patient is unsure of the name of the antibiotics she was on, she thinks it was something friendly that started with an A that was 2 times daily. Patient is still . RMATION SYSTEMS PROFESSOR * Troy Funes DO - 11/09/2024 9:39 AM CST Please clarify what abx she took, for how long, and if she is still . I do not see it in PDMP. RMATION SYSTEMS PROFESSOR documented in this encounter Plan of Treatment Not on file documented as of this encounter Visit Diagnoses Diagnosis Strep throat- Primary Streptococcal sore throat documented in this encounter Additional Health Concerns Assessment Noted Time PHQ-9 Depression Total Score: 1 10/15/20 22 12:59 PM INFORMATION SYSTEMS PROFESSOR documented as of this encounter Care Teams Hot Mill Supervisor Relationship Specialty Start Date End Date Troy Funes DO [address] [place] [address] PCP - General FAMILY PRACTICE 01/30/20 documented as of this encounter
--- OUTSIDE RECORDS SUMMARY | 2025-01-17 10:54 | XMS_ITS | Encounter Summary ---
Author Organization [facility] Address [address] [place] [address] Care Team Providers Care Tailor Helper Name Role Phone Troy Funes Jean MORENO Primary Care Provider + Encounter Details Date Type Department Care Team (Late st Contact Info) Description 03/29/2023 Ondoret Message Enc [facility] Medical Group Family & Internal Medicine [facility] [address] [place] [address] Millicent Garner APNP [address] [place] [address] Cancel appointment no longer need Social History Tobacco Use Types Packs/Day Years Used Date Smoking Tobacco: Never Smokeless Tobacco: Never Alcohol Use Standard Drinks/Week Comments Not Currently 0 (1 standard drink = 0.6 oz pur e alcohol) PHQ-2 Answer Date Recorded Patient Health Questionnaire-2 Score 0 03/17/2023 Comments No Sex and Gender Information Value Date Recorded Sex Assigned at Not on file Legal Sex Female 2:45 PM BUSINESS SYSTEM MANAGER Gender Identity Not on file Sexual Orientation Not on file 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 No / Unsure 03/29/2023 12:05 PM CDT documented as of this encounter Plan of Treatment Not on file documented as of this encounter Visit Diagnoses Not on filedocumented in this encounter Additional Health Concerns Assessment Noted Time PHQ-9 Depression Total Score: 1 10/15/20 22 12:59 PM BUSINESS SYSTEM MANAGER documented as of this encounter Care Teams Tailor Helper Relationship Specialty Start Date End Date Troy Funes DO [address] [place] [address] PCP - General FAMILY PRACTICE 01/30/20 documented as of this encounter
--- OUTSIDE RECORDS SUMMARY | 2025-01-17 10:54 | XMS_ITS | Clinical Summary ---
Author Organization [facility] [address] [place] [address] [address] [address] Care Team Providers Care Newspaper Photographer Name Role Phone Unavailable Primary Care Provider Unavailabl e Allergies Active Allergy Reactions Criticality Noted Date Comments Sulfa (Sulfonamide Antibiotics) Unknown 01/30/2020 Had reaction when younger Medications clobetasoL (TEMOVATE) 0.05 % Cream Apply to the heels every other day as directed. 60 Gram 3 08/31/2022 10:29 AM CDT 08/24/2022 Active Urea 40 % Cream Apply to heels twice daily as directed. 85 Gram 3 08/24/2022 Active acyclovir (ZOVIRAX) 800 mg tablet Take 1 Tablet (800 mg) by mouth 5 times daily. 35 Tablet 10/14/2022 6:53 PM SIDE FRAMER 10/14/2022 Active amoxicillin-cla vulanate (AUGMENTIN) 875-125 mg tablet Take 1 tablet (875 mg total) by mouth 2 (two) times daily for 10 days. 20 Tablet 10/15/2022 5:21 PM SIDE FRAMER 10/15/2022 Active vitamin-iron fumarate-folic acid 27 mg-0.8 mg Tablet Take 1 Capsule by mouth daily. Active ascorbic acid, vitamin C, (VITAMIN C) 1,000 mg Tablet Take 1,000 mg by mouth daily. Active fluticasone propionate (FLONASE) 50 mcg/spray [place], Suspension nasal inhaler 09/29/2021 Activ e amoxicillin-cla vulanate (AUGMENTIN) 875-125 mg tablet Take 1 tablet by mouth 2 (two) times a day for 7 days 14 Tablet 03/27/2023 9:50 AM CDT 03/27/2023 Active meclizine (ANTIVERT) 25 mg tablet Take 1 Tablet (25 mg) by mouth 3 times daily as needed. 30 Tablet 11/01/2023 8:45 AM SIDE FRAMER 10/27/2023 Active HYDROcodone-troy taminophen (NORCO) 5-325 mg tablet Take 1-2 Tablets by mouth every 6 hours as needed. Max Daily Amount: 8 Tablets 10 Tablet 11/03/2023 2:55 PM SIDE FRAMER 11/03/2023 Active ibuprofen (MOTRIN) 600 mg tablet Take 1 Tablet (600 mg) by mouth every 6 hours as needed. 20 Tablet 11/03/2023 2:55 PM SIDE FRAMER 11/03/2023 Active chlorhexidine gluconate 0.12 % Mouthwash SWISH GENTLY 30 SECONDS WITH 20 ML EVERY 8 HOURS 473 mL 11/08/2023 3:02 PM SIDE FRAMER 11/08/2023 Active cyclobenzaprine (FLEXERIL) 10 mg tablet Take 1 Tablet (10 mg) by mouth 3 times daily as needed for muscle spasm. 20 Tablet 06/05/2024 5:46 PM CDT 06/05/2024 Active amoxicillin (AMOXIL) 500 mg capsule Take 1 Capsule (500 mg) by mouth every 12 hours until all doses are taken. 20 Capsule 10/19/2024 11:14 AM SIDE FRAMER 10/19/2024 Active azithromycin (Zithromax Z-Myron) 250 mg tablet Take 2 tablets by mouth on day 1, then take 1 tablet by mouth daily for days 2-5 6 Tablet 12/26/2024 6:11 PM SIDE FRAMER 12/26/2024 Active Active Problems No known active problems Encounters Date Type Department Care Team Description 12/27/2024 External Device Data [facility] ABSTRACTION Provider, Abstract 12/21/2024 External Device Data [facility] ABSTRACTION Provider, Abstract from Last 3 Months Social History Tobacco Use Types Packs/Day Years Used Date Smoking Tobacco: Never Smokeless Tobacco: Never Tobacco Cessation:Counseling Given: Not Answered Alcohol Use Standard Drinks/Week Comments Yes 0 (1 standard drink = 0.6 oz pur e alcohol) Comments No Sex and Gender Information Value Date Recorded Sex Assigned at Not on file Legal Sex Female 3:26 PM CDT Gender Identity Not on file Sexual Orientation Not on file Last Filed Vital Signs Vital Sign Reading Time Taken Comments Blood Pressure 106/70 10/17/2022 8:29 AM SIDE FRAMER Pulse 85 10/17/2022 8:29 AM SIDE FRAMER Temperature 36.6 C (97.8 F) 10/17/2022 8:29 AM SIDE FRAMER Respiratory Rate 14 10/17/2022 8:29 AM SIDE FRAMER Oxygen Saturation 99% 10/17/2022 8:29 AM SIDE FRAMER Inhaled Oxygen Concentration - - Weight 62.1 kg (136 lb 12.8 oz) 10/17/2022 8:29 AM SIDE FRAMER Height 160 cm (5' 3 ) 10/17/2022 8:29 AM SIDE FRAMER Body Mass Index 24.23 10/17/2022 8:29 AM SIDE FRAMER Plan of Treatment Health Maintenance Due Date Last Done Comments CERVICAL CANCER SCREENING 2021 INFLUENZA VACCINE (#1) 2024 9, 08/26/2016, 10/10/2015 DTAP/TDAP/TD VACCINES (10 - Td or Tdap) 01/29/2030 01/30/2020, 05/05/2018, 03/18/2015, Additional history exists HEPATITIS B VACCINES Completed 03/17/2001, 12/09/2000, 10/07/2000 HPV VACCINES Completed 10/02/2009, 02/2009, 02/27/2009 PNEUMOCOCCAL VACCINE 0-64 YEARS Aged Out No longer eligible based on patient's age to complete this topic Insurance [employer] ([employer]NAL) [employer] [facility] [employer]
--- OUTSIDE RECORDS SUMMARY | 2025-01-17 10:54 | XMS_ITS | Clinical Summary ---
Author Organization [facility] Address [address] [place] [address] Care Team Providers Care Gis Mapping Technician Name Role Phone Troy Funes DO Primary Care Provider + Allergies Active Allergy Reactions Criticality Noted Date Comments Sulfa Antibiotics Unknown,Rash Low 01/30/2020 Had reaction when younger Medications vitamin 28-0.6-0.4-340 MG capsule Take 1 capsule by mouth daily. Active fluticasone propionate (FLONASE) 50 MCG/ACT nasal spray 1 spray by Nasal route daily. Active cefdinir (OMNICEF) 300 MG Cap capsuleIndicati ons:Strep throat Take 1 capsule (300 mg total) by mouth 2 (two) times daily. 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 06/21/2023 Sore throat 06/16/2023 06/16/2023 Encounters Date Type Department Care Team Description 11/30/2024 Scan [facility] Scanned, Doc Med Group 11/08/2024 MyChart Message Enc [facility] Family & Internal Medicine [address] [phone] Troy Funes, DO Strep throat 10/19/2024 Scan [facility] Scanned, Doc Med Group Lab (SCAN) 10/18/2024 Scan [facility] Scanned, Doc Med Group Lab (SCAN) from Last 3 Months Immunizations Name Administration Dates Next Due Afluria 36 MONTHS+ (Prefille d Syringe IIV4) 09/29/2019 Dtp (Generic) 07/07/1996, 3,1991,09/12,1991 HPV4 (Gardasil) 06/09/2007,02/03/2007,12/09/2006 Hepatitis B Pediatric 03/17/2001,12/09/2000,07/2000 Hib (Generic) 08/29/1992, 1,1991,07/07 Influenza (Generic) 09/19/2008,11/16/2006 Influenza Adult (Generic) 09/13/2024,11/2020,10/06/2018,10/28 MMR (MMRII) 07/07/1996,08/29/1992 Meningococcal (Menomune) 12/09/2006 Polio Opv (Generic) 07/07/1996, 3,1991,09/12,1991 Tdap (Adacel) 01/30/2020 Tdap (Generic) 05/05/2018,03/18/2015,02/11/2007 Varicella (Varivax) 07/23/2015 Family History Medical History Relation Comments Heart Disease Maternal Grandmother Hypertension Maternal Grandmother Stroke Maternal Grandmother Relation Status Comments Maternal Grandmother Social History Tobacco Use Types Packs/Day Years Used Date Smoking Tobacco: Never Passive Smoke Exposure: Never Smokeless Tobacco: Never Tobacco Cessation:Counseling Given: Not Answered Alcohol Use Standard Drinks/Week Comments Not Currently 0 (1 standard drink = 0.6 oz pur e alcohol) PHQ-2 Answer Date Recorded Patient Health Questionnaire-2 Score 0 10/16/2024 Comments Yes Sex and Gender Information Value Date Recorded Sex Assigned at Not on file Legal Sex Female 2:45 PM WELDING TECHNICIAN Gender Identity Not on file Sexual Orientation Not on file 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 Not on file Not on file Last Filed Vital Signs Vital Sign Reading Time Taken Comments Blood Pressure 114/64 10/16/2024 9:54 AM WELDING TECHNICIAN Pulse 86 10/16/2024 9:54 AM WELDING TECHNICIAN Temperature 36.3 C (97.3 F) 10/16/2024 9:54 AM WELDING TECHNICIAN Respiratory Rate 16 10/16/2024 9:54 AM WELDING TECHNICIAN Oxygen Saturation 98% 10/16/2024 9:54 AM WELDING TECHNICIAN Inhaled Oxygen Concentration - - Weight 67.5 kg (148 lb 12.8 oz) 10/16/2024 9:54 AM WELDING TECHNICIAN Height 160 cm (5' 3 ) 10/16/2024 9:54 AM WELDING TECHNICIAN Body Mass Index 26.36 10/16/2024 9:54 AM WELDING TECHNICIAN Plan of Treatment Health Maintenance Due Date Last Done Comments Cervical Cancer Screening Pap Smear (Age 30 to 64) Every 3 Years 1991 Annual Physical 01/29/2021 01/30/2020 Cervical Cancer Screening Pap with HPV Testing (Age 30 to 64) Every 5 Years 2021 Cervical Cancer Screening with HPV 2021 PHQ-2 (Physician [place]) 11/29/2024 10/16/2024 COVID-19 Vaccine ( season) 2025 09/12/2021, 12/07/2020, 11/16/2020 Postponed from 07/30/2024 (Patient Refused) PHQ-2 (Physician [place]) 10/16/2025 10/16/2024 DTaP, Tdap and Td Vaccines (10 - Td or Tdap) 01/29/2030 01/30/2020, 05/05/2018, 03/18/2015, Additional history exists RSV Immunization or 60+ Years (1 - 1-dose 75+ series) 2066 Hepatitis B Vaccines Completed 03/17/2001, 12/09/2000, 10/07/2000 Meningococcal Vaccine Aged Out 12/09/2006 No jose de jesus marlon eligible based on patient's age to complete this topic HPV Vaccines Completed 06/09/2007, 06/2007, 12/09/2006 Hepatitis C Completed 03/19/2023 Influenza Adult Completed 09/13/2024, 11/2020, 09/29/2019, Additional history exists Meningococcal B Vaccine Aged Out No l onger eligible based on patient's age to complete this topic Pneumococcal Vaccine: Pediatrics (0 to 5 Years) and At-Risk Patients (6 to 64 Years) Aged Out No longer eligible based on patient's age to complete this topic RSV Immunizations Under 20 Months Aged Out No longer eligible based on patient's age to complete this topic Procedures Procedure Name Priority Date/Time Associated Diagnosis Comments OUTSIDE LAB (SCAN ORDER) 10/19/2024 OUTSIDE LAB (SCAN ORDER) 10/18/2024 HEPATITIS C ANTIBODY Routine 03/19/2023 12:00 AM CDT Screening for lipid disorders Screening for endocrine, metabolic and immunity disorder Annual physical exam Need for hepatitis C screening test from Last 3 Months or Most Recently Relevant to Health Maintenance Results * OUTSIDE LAB (SCAN ORDER) (10/19/2024) Only the most recent of2 resultswithin the time period is included. 10/19/2024 us Doc Med Group Scanned SCANNING Final Resu lt * HEPATITIS C ANTIBODY ([facility] ONLY) (03/19/2023 12:00 AM CDT) 03/19/2023 us Troy Funes DO LABORATORY Final Re sult [facility] ONBASE from Last 3 Months or Most Recently Relevant to Health Maintenance Insurance R Care Teams Gis Mapping Technician Relationship Specialty Start Date End Date Troy Funes DO [address] [place] [phone] PCP - General FAMILY PRACTICE 01/30/20
--- OUTSIDE RECORDS SUMMARY | 2025-01-17 10:54 | XMS_ITS | Patient Health Summary ---
Author Organization [facility] Address [address] [address] Care Team Providers Care Adolescent Psychiatrist Name Role Phone Unavailable Primary Care Provider Unavailabl e Note from [facility],non-owned Affiliates and Associated Physician Practices is amultiple site organization consisting of ambulatory clinics and hospital sitesin [place], [place], [place] and [place]. This disclosure is being madepursuant to the Care Everywhere program and may not contain all information available regarding this patient. Last updated 18.[facility] [employer] Social History Tobacco Use Types Packs/Day Years Used Date Smoking Tobacco: Never Assessed Sex and Gender Information Value Date Recorded Sex Assigned at Not on file Gender Identity Not on file Sexual Orientation Not on file Procedures * DERMATOPATHOLOGY(Performed 10/18/2023) Results * DERMATOPATHOLOGY (10/18/2023 2:33 PM HARDWARE TEST ENGINEER) Case Report Dermatopathology Report Case: [id number] Authorizing Provider: Yessi Del Cid MD Collected: 10/18/2023 02:33 PM Ordering Location: [facility] DermPath Lab Received: 10/19/2023 03:53 PM Pathologist: Negin Oliva MD Specimen: Skin, left flank 3 2:18 PM HARDWARE TEST ENGINEER DERMATOPATHOLOGY LABORATORY Final Diagnosis Specimen A. 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 The specimen consists of a shave biopsy measuring 6x5x1 mm. Jar 0. 3 2:18 PM [facility] DERMATOPATHOLOGY LABORATORY Microscopic Description Specimen A. SKIN, left flank: This is a compound nevus. There is a lentiginous proliferation of melanocytes along the dermal-epidermal junction, highlighted by MART-1/Melan-A immunohistochemical staining. There is underlying fibroplasia of the papillary dermis. The intradermal component is bland in appearance and matures with depth. Original and deeper sections were reviewed. (Compound Amol's Nevus) 3 2:18 PM [facility] DERMATOPATHOLOGY LABORATORY Disclaimer An external and internal positive and negative controls are appropriate for the histochemical, immunohistochemical and immunofluorescence stain(s) in this case (if any), except where stated explicitly. The performance characteristics of the stain(s) cited in this report were developed and its performance characteristic determined by the Dermatopathology Laboratory at [facility], directed by Dr. Cami Coley. These tests need not be, and therefore are not, approved by the [place] Food and Drug Administration. The tests are used for clinical purposes. Billing Codes Specimen Charges Stain Charges 10337 1 99568 1 3 2:18 PM [facility] DERMATOPATHOLOGY LABORATORY Embedded Images 3 2:18 PM [facility] DERMATOPATHOLOGY LABORATORY Pathology/Cytolo gy TISSUE SPECIMEN FROM SKIN / Unknown 10/18/2023 2:33 PM HARDWARE TEST ENGINEER 10/19/2023 3:53 PM HARDWARE TEST ENGINEER Yessi Del Cid MD LAB - PATHOLOGY/CYTO LOGY ORDERABLES DERMATOPATHOLOGY LABORATORY [facility] - Department of Dermatology [address], [address] [phone]
--- OUTSIDE RECORDS SUMMARY | 2025-01-17 10:54 | XMS_ITS | Encounter Summary ---
Author Organization [facility] Address [address] [place] [address] Care Team Providers Care Bottle Line Worker Name Role Phone Unavailable Primary Care Provider Unavailabl e Encounter Details Date Type Department Care Team (Late st Contact Info) Description 10/18/2023 Lab Requisition [facility] - DermPath Lab [address] [facility] [place] [phone] Yessi Del Cid MD [address] [facility] [address] [place] [address] Social History Tobacco Use Types Packs/Day Years Used Date Smoking Tobacco: Never Assessed Sex and Gender Information Value Date Recorded Sex Assigned at Not on file Gender Identity Not on file Sexual Orientation Not on file documented as of this encounter Plan of Treatment Not on file documented as of this encounter Procedures Procedure Name Priority Date/Time Associated Diagnosis Comments DERMATOPATHOLOGY Routine 10/18/2023 2:33 PM BIOMASS POWER PLANT MANAGER documented in this encounter Results * DERMATOPATHOLOGY (10/18/2023 2:33 PM BIOMASS POWER PLANT MANAGER) Case Report Dermatopathology Report Case: [id number] Authorizing Provider: Yessi Del Cid MD Collected: 10/18/2023 02:33 PM Ordering Location: [facility] DermPath Lab Received: 10/19/2023 03:53 PM Pathologist: Negin Oliva MD Specimen: Skin, left flank 3 2:18 PM BIOMASS POWER PLANT MANAGER DERMATOPATHOLOGY LABORATORY Final Diagnosis Specimen A. 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 The specimen consists of a shave biopsy measuring 6x5x1 mm. Jar 0. 3 2:18 PM [facility] DERMATOPATHOLOGY LABORATORY Microscopic Description Specimen A. SKIN, left flank: This is a compound nevus. There is a lentiginous proliferation of melanocytes along the dermal-epidermal junction, highlighted by MART-1/Melan-A immunohistochemical staining. There is underlying fibroplasia of the papillary dermis. The intradermal component is bland in appearance and matures with depth. Original and deeper sections were reviewed. (Compound Amol's Nevus) 3 2:18 PM [facility] DERMATOPATHOLOGY LABORATORY Disclaimer An external and internal positive and negative controls are appropriate for the histochemical, immunohistochemical and immunofluorescence stain(s) in this case (if any), except where stated explicitly. The performance characteristics of the stain(s) cited in this report were developed and its performance characteristic determined by the Dermatopathology Laboratory at [facility], directed by Dr. Cami Coley. These tests need not be, and therefore are not, approved by the [place] Food and Drug Administration. The tests are used for clinical purposes. Billing Codes Specimen Charges Stain Charges 20477 1 04013 1 3 2:18 PM [facility] DERMATOPATHOLOGY LABORATORY Embedded Images 3 2:18 PM [facility] DERMATOPATHOLOGY LABORATORY Pathology/Cytolo gy TISSUE SPECIMEN FROM SKIN / Unknown 10/18/2023 2:33 PM BIOMASS POWER PLANT MANAGER 10/19/2023 3:53 PM BIOMASS POWER PLANT MANAGER Yessi Del Cid MD LAB - PATHOLOGY/CYTO LOGY ORDERABLES DERMATOPATHOLOGY LABORATORY [facility] - Department of Dermatology [address], [address] [phone] documented in this encounter Visit Diagnoses Not on filedocumented in this encounter
[2025-01-17 20:08] LABS: Hematocrit 36.2 % (37.0-47.0); Hemoglobin 12.1 g/dL (12.0-15.0); Mean Corpuscular HGB Conc 33.4 g/dl (32-36); Mean Corpuscular Volume 92.8 fl (80-100); Mean Platelet Volume 10.8 fl (7.4-10.4); Platelet Count Result 215 k/mm3 (150-375); Red Cell Distribution Width 13.1 % (11.5-14.5); White Blood Count 9.5 K/mm3 (4.5-10.0)
[2025-01-17 21:14] LABS: Rubella IgG Antibody 9.3 IU/ML
[2025-01-17 21:17] LABS: Syphilis IgG/IgM Antibody Negative (Negative)
[2025-01-17 21:33] LABS: HIV 1/2 Ab P24 Ag Result Negative (Negative)
[2025-01-17 23:51] LABS: Hepatitis B Surface Anti Res Indeterminate
== END 2025-01-17 10:46 | disposition home or self-care (01) ==
LOC: ANHGOSHLAB 10:46
PROVIDERS: PCP Student in an Organized Health Care Education/Training Program; Visit Provider Obstetrics & Gynecology
DX: O99.119 Other diseases of the blood and blood-forming organs and certain disorders involving the immune mechanism complicating pregnancy, unspecified trimester (principal); Z3A.00 Weeks of gestation of pregnancy not specified
CPT/HCPCS: 36415; 81241; 85027; 85610; 86593; 86703; 86706; 86762; 86850; 86900; 86901; G0432

== ENCOUNTER 2025-01-29 08:43 | Outpatient (CLI) | payer OTHER, SELFPAY | END 2025-01-29 08:44 | disposition home or self-care (01) | LOC: GOSHIMG 08:44 | PROVIDERS: PCP Obstetrics & Gynecology; Visit Provider Obstetrics & Gynecology | DX: Z36.9 Encounter for antenatal screening, unspecified (principal) | CPT/HCPCS: 76805 ==

== ENCOUNTER 2025-03-01 12:58 | Outpatient (CLI) | payer OTHER, SELFPAY ==
--- NOTE | ~2025-03-01 | US_ITS ---
EXAMINATION:US venous doppler LE RT INDICATION:Right lower extremity edema TECHNIQUE: Multiple grayscale, color flow and Doppler images of the right lower extremity deep venous systems were obtained and reviewed. COMPARISON:No prior studies for comparison. FINDINGS: The common femoral, superficial femoral and popliteal veins demonstrate normal respiratory variation, augmentation and compressibility. Color flow is also seen within the posterior tibial, pe roneal, greater saphenous and profunda veins. IMPRESSION: 1: No lower extremity deep venous thrombosis. Reviewed, dictated and finalized at location A.
== END 2025-03-01 12:59 | disposition home or self-care (01) ==
LOC: GOSHIMG 12:58
PROVIDERS: PCP Obstetrics & Gynecology; Visit Provider Obstetrics & Gynecology
DX: R22.41 Localized swelling, mass and lump, right lower limb (principal)
CPT/HCPCS: 93971

== ENCOUNTER 2025-03-02 13:41 | Outpatient (CLI) | payer OTHER, SELFPAY ==
--- OUTSIDE RECORDS SUMMARY | 2025-03-01 12:42 | XMS_ITS | Clinical Summary ---
Author Organization [facility] [address] [facility] Address [address] [place] [address] Care Team Providers Care Director Operating Room Name Role Phone No, Physician Primary Care Provider [phone] Allergies Active Allergy Reactions Criticality Noted Date [...] on file Legal Sex Female 9:31 AM LOGISTICS PLANNING ENGINEER Gender Identity Not on file Sexual Orientation [...] patient's age to complete this topic Insurance [facility] Care Teams Director Operating Room Relationship Specialty Start Date End Date No, Physician PCP - General 12/04/19
--- OUTSIDE RECORDS SUMMARY | 2025-03-01 12:42 | XMS_ITS | Encounter Summary ---
Author Organization [facility] Address [address] [place] [address] Care Team Providers Care Terrazzo Journeyman Name Role Phone Troy Funes DO Primary Care Provider + Reason for Visit * Reason Onset Date Comments Question 11/08/2024 Encounter Details Date Type Department Care Team (Late st Contact Info) Description 11/08/2024 [place] Message Enc [facility] Family & Internal Medicine [facility] [address] [place] [phone] Troy Funes DO [address] [place] [address] Strep throat Social History Tobacco [...] file Legal Sex Female 2:45 PM BUSINESS DEVELOPMENT DIRECTOR Gender Identity Not on file Sexual Orientation Not on file 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 NESS DEVELOPMENT DIRECTOR * Kim Ghosh - 11/09/2024 1:26 PM CST Patient is unsure of the name of the antibiotics she was on, she thinks it was something friendly that started with an A that was 2 times daily. Patient is still . NESS DEVELOPMENT DIRECTOR * Troy Funes DO - 11/09/2024 9:39 AM CST Please clarify what abx she took, for how long, and if she is still . I do not see it in PDMP. NESS DEVELOPMENT DIRECTOR documented in this encounter Plan of Treatment Not on file documented as of this encounter Visit Diagnoses Diagnosis Strep throat- Primary Streptococcal sore throat documented in this encounter Additional Health Concerns Assessment Noted Time PHQ-9 Depression Total Score: 1 10/15/20 22 12:59 PM BUSINESS DEVELOPMENT DIRECTOR documented as of this encounter Care Teams Terrazzo Journeyman Relationship Specialty Start Date End Date Troy Funes DO [address] [place] [phone] PCP - General FAMILY PRACTICE 01/30/20 documented as of this encounter
--- OUTSIDE RECORDS SUMMARY | 2025-03-01 12:42 | XMS_ITS | Encounter Summary ---
Author Organization [facility] Address [address] [place] [address] Care Team Providers Care Medical Billing Manager Name Role Phone Troy Funes Jean MORENO Primary Care Provider + Encounter Details Date Type Department Care Team (Late st Contact Info) Description 03/29/2023 Ryan-O, Inct Message Enc [facility] Medical Group Family & Internal Medicine [facility] [address] [place] [address] Millicent Garner APNP [address] [place] [address] Cancel appointment no longer need [...] on file Legal Sex Female 2:45 PM DIRECTOR PAYMENT Gender Identity Not on file Sexual Orientation [...] Total Score: 1 10/15/20 22 12:59 PM DIRECTOR PAYMENT documented as of this encounter Care Teams Medical Billing Manager Relationship Specialty Start Date End Date Troy Funes DO [address] [place] [phone] PCP - General FAMILY PRACTICE 01/30/20 documented as of this encounter
--- OUTSIDE RECORDS SUMMARY | 2025-03-01 12:42 | XMS_ITS | Clinical Summary ---
Author Organization Lisa Cook [facility] [address] [place] [address] [address] [address] Care Team Providers Care Diabetes Nurse Name Role Phone Unavailable Primary Care Provider Unavailabl e Allergies Active Allergy Reactions Criticality Noted Date Comments Sulfa (Sulfonamide Antibiotics) Unknown 01/30/2020 Had reaction when younger Medications clobetasoL (TEMOVATE) 0.05 % Cream Apply to the heels every other day as directed. 60 Gram 3 08/31/2022 10:29 AM CDT 2 Active Urea 40 % Cream Apply to heels twice daily as directed. 85 Gram 3 2 Active acyclovir (ZOVIRAX) 800 mg tablet Take 1 Tablet (800 mg) by mouth 5 times daily. 35 Tablet 10/14/2022 6:53 PM BOOK REVIEWER 2 Active amoxicillin-cl avulanate (AUGMENTIN) 875-125 mg tablet Take 1 tablet (875 mg total) by mouth 2 (two) times daily for 10 days. 20 Tablet 10/15/2022 5:21 PM BOOK REVIEWER 2 Active vitamin-iron fumarate-folic acid 27 mg-0.8 mg Tablet Take 1 Capsule by mouth daily. Active ascorbic acid, vitamin C, (VITAMIN C) 1,000 mg Tablet Take 1,000 mg by mouth daily. Active fluticasone propionate (FLONASE) 50 mcg/spray Sneads, Suspension nasal inhaler 1 Active amoxicillin-cl avulanate (AUGMENTIN) 875-125 mg tablet Take 1 tablet by mouth 2 (two) times a day for 7 days 14 Tablet 03/27/2023 9:50 AM CDT 3 Active meclizine (ANTIVERT) 25 mg tablet Take 1 Tablet (25 mg) by mouth 3 times daily as needed. 30 Tablet 11/01/2023 8:45 AM BOOK REVIEWER 3 Active HYDROcodone-ac etaminophen (NORCO) 5-325 mg tablet Take 1-2 Tablets by mouth every 6 hours as needed. Max Daily Amount: 8 Tablets 10 Tablet 11/03/2023 2:55 PM BOOK REVIEWER 3 Active ibuprofen (MOTRIN) 600 mg tablet Take 1 Tablet (600 mg) by mouth every 6 hours as needed. 20 Tablet 11/03/2023 2:55 PM BOOK REVIEWER 3 Active chlorhexidine gluconate 0.12 % Mouthwash SWISH GENTLY 30 SECONDS WITH 20 ML EVERY 8 HOURS 473 mL 11/08/2023 3:02 PM BOOK REVIEWER 3 Active cyclobenzaprin e (FLEXERIL) 10 mg tablet Take 1 Tablet (10 mg) by mouth 3 times daily as needed for muscle spasm. 20 Tablet 06/05/2024 5:46 PM CDT 4 Active amoxicillin (AMOXIL) 500 mg capsule Take 1 Capsule (500 mg) by mouth every 12 hours until all doses are taken. 20 Capsule 10/19/2024 11:14 AM BOOK REVIEWER 4 Active azithromycin (Zithromax Z-Myron) 250 mg tablet Take 2 tablets by mouth on day 1, then take 1 tablet by mouth daily for days 2-5 6 Tablet 12/26/2024 6:11 PM BOOK REVIEWER 5 Active cefdinir (OMNICEF) 300 mg capsule Take 1 Capsule (300 mg) by mouth 2 times daily for 10 days. 20 Capsule 11/10/2024 3:50 PM BOOK REVIEWER 4 02/16/20 25 Discontinued amoxicillin (AMOXIL) 500 mg capsule Take 1 capsule (500 mg total) by mouth 2 (two) times daily for 10 days. 20 Capsule 02/15/2025 3:12 PM CDT 5 02/26/20 25 Active Problems No known active problems Encounters Date Type Department Care Team Description 02/14/2025 External Device Data STL ABSTRACTION Provider, Abstract 02/14/2025 External Device Data STL ABSTRACTION Provider, Abstract 02/03/2025 External Device Data ST[facility] ABSTRACTION Provider, Abstract 02/03/2025 External Device Data ST[facility] ABSTRACTION Provider, Abstract 01/31/2025 External Device Data ST[facility] ABSTRACTION Provider, Abstract 01/17/2025 External Device Data STL ABSTRACTION Provider, Abstract 12/27/2024 External Device Data STL ABSTRACTION Provider, [...] Comments Blood Pressure 106/70 10/17/2022 8:29 AM BOOK REVIEWER Pulse 85 10/17/2022 8:29 AM BOOK REVIEWER Temperature 36.6 C (97.8 F) 10/17/2022 8:29 AM BOOK REVIEWER Respiratory Rate 14 10/17/2022 8:29 AM BOOK REVIEWER Oxygen Saturation 99% 10/17/2022 8:29 AM BOOK REVIEWER Inhaled Oxygen Concentration - - Weight 62.1 kg (136 lb 12.8 oz) 10/17/2022 8:29 AM BOOK REVIEWER Height 160 cm (5' 3 ) 10/17/2022 8:29 AM BOOK REVIEWER Body Mass Index 24.23 10/17/2022 8:29 AM BOOK REVIEWER Plan of Treatment Health Maintenance Due Date Last Done Comments HPV/Cotest (21-29) 2012 CERVICAL CANCER SCREENING 2021 HPV/Cotest (30-65) 2021 PAP SMEAR 2021 INFLUENZA VACCINE (#1) 2024 9, 08/26/2016, 10/10/2015 DTAP/TDAP/TD VACCINES (10 - Td or Tdap) 01/29/2030 01/30/2020, 05/05/2018, 03/18/2015, Additional history exists HEPATITIS B VACCINES Completed 03/17/2001, 12/09/2000, 10/07/2000 HPV VACCINES Completed 10/02/2009, 02/2009, 02/27/2009 PNEUMOCOCCAL VACCINE 0-49 YEARS Aged Out No longer eligible based on patient's age to complete this topic Insurance CHOICE [id number] RX [employer] (INTERNAL) [facility] [employer] [facility] [employer]
--- OUTSIDE RECORDS SUMMARY | 2025-03-01 12:42 | XMS_ITS | Encounter Summary ---
Author Organization [facility] Address [address] [place] [address] Care Team Providers Care Medical Assistant Instructor Name Role Phone Troy Funes DO Primary Care Provider + Encounter Details Date Type Department Care Team (Late st Contact Info) Description 06/28/2023 MyChart Message Enc [facility] Medical Group Family & Internal Medicine [facility] [address] [place] [address] Troy Funes DO [address] [place] [address] [place] [facility] Social History Tobacco Use Types Packs/Day [...] on file Legal Sex Female 2:45 PM IT SERVICE TECHNICIAN Gender Identity Not on file Sexual [...] Total Score: 1 10/15/20 22 12:59 PM IT SERVICE TECHNICIAN documented as of this encounter Care Teams Medical Assistant Instructor Relationship Specialty Start Date End Date Troy Funes DO [address] [place] [id number] PCP - General FAMILY PRACTICE 01/30/20 documented as of this encounter
--- OUTSIDE RECORDS SUMMARY | 2025-03-01 12:42 | XMS_ITS | Encounter Summary ---
Author Organization [facility] Address [address] [place] [address] Care Team Providers Care Hard Candy Spinner Name Role Phone Unavailable Primary Care Provider Unavailabl e Encounter Details Date Type Department Care Team (Late st Contact Info) Description 10/18/2023 Lab Requisition [facility] - DermPath Lab [address] [facility], [place] [phone] Yessi Del Cid MD [address] [facility] 3 [place] [address] Social History Tobacco Use Types Packs/Day Years [...] Diagnosis Comments DERMATOPATHOLOGY Routine 10/18/2023 2:33 PM CHRISTIAN EDUCATION DIRECTOR documented in this encounter Results * DERMATOPATHOLOGY (10/18/2023 2:33 PM CHRISTIAN EDUCATION DIRECTOR) Case Report Dermatopathology Report Case: [id number] Authorizing Provider: Yessi Del Cid MD Collected: 10/18/2023 02:33 PM Ordering Location: [facility] DermPath Lab Received: 10/19/2023 03:53 PM Pathologist: Negin Oliva MD Specimen: Skin, left flank 3 2:18 PM CHRISTIAN EDUCATION DIRECTOR DERMATOPATHOLOGY LABORATORY Final Diagnosis Specimen A. 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 The specimen consists of a shave biopsy measuring 6x5x1 mm. Jar 0. 3 2:18 PM [facility] DERMATOPATHOLOGY LABORATORY Microscopic Description Specimen A. SKIN, left flank: This is a compound nevus. There is a lentiginous proliferation of melanocytes along the dermal-epidermal junction, highlighted by MART-1/Melan-A immunohistochemical staining. There is underlying fibroplasia of the papillary dermis. The intradermal component is bland in appearance and matures with depth. Original and deeper sections were reviewed. (Compound Amol's Nevus) 3 2:18 PM [facility] DERMATOPATHOLOGY LABORATORY Disclaimer An external and internal positive and negative controls are appropriate for the histochemical, immunohistochemical and immunofluorescence stain(s) in this case (if any), except where stated explicitly. The performance characteristics of the stain(s) cited in this report were developed and its performance characteristic determined by the Dermatopathology Laboratory at [facility], directed by Dr. Cami Coley. These tests need not be, and therefore are not, approved by the [place] Food and Drug Administration. The tests are used for clinical purposes. Billing Codes Specimen Charges Stain Charges 86130 1 57633 1 3 2:18 PM [facility] DERMATOPATHOLOGY LABORATORY Embedded Images 3 2:18 PM [facility] DERMATOPATHOLOGY LABORATORY Pathology/Cytolo gy TISSUE SPECIMEN FROM SKIN / Unknown 10/18/2023 2:33 PM CHRISTIAN EDUCATION DIRECTOR 10/19/2023 3:53 PM CHRISTIAN EDUCATION DIRECTOR Yessi Del Cid MD LAB - PATHOLOGY/CYTO LOGY ORDERABLES DERMATOPATHOLOGY LABORATORY [facility] - Department of Dermatology [address], [address] [phone] documented in this encounter Visit Diagnoses Not on filedocumented in this encounter
--- OUTSIDE RECORDS SUMMARY | 2025-03-01 12:42 | XMS_ITS | Encounter Summary ---
Author Organization [facility] Address [address] [place] [address] Care Team Providers Care Forklift Driver Name Role Phone Troy Funes DO Primary Care Provider + Encounter Details Date Type Department Care Team (Late st Contact Info) Description 10/26/2023 Cactust Message Enc [facility] Medical Group Family & Internal Medicine [facility] [address] [place] [address] Troy Funes DO [address] [place] [address] Dizziness and motion sickness Social [...] on file Legal Sex Female 2:45 PM LINEN WORKER Gender Identity Not on file Sexual Orientation [...] Total Score: 1 10/15/20 22 12:59 PM LINEN WORKER documented as of this encounter Care Teams Forklift Driver Relationship Specialty Start Date End Date Troy Funes DO [facility] [place] [address] PCP - General FAMILY PRACTICE 01/30/20 documented as of this encounter
--- OUTSIDE RECORDS SUMMARY | 2025-03-01 12:42 | XMS_ITS | Referral Summary ---
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 Care Teams Certified Medical Technician Assistant Relationship Specialty Start Date End Date No, Physician PCP - General 12/04/19
--- OUTSIDE RECORDS SUMMARY | 2025-03-01 12:42 | XMS_ITS | Clinical Summary ---
Author Organization [facility] Address [address] [place] [address] Care Team Providers Care Grades 1 Thru 5 Teacher Name Role Phone Troy Funes DO Primary Care Provider + Allergies Active Allergy Reactions Criticality Noted Date Comments Sulfa Antibiotics Unknown,Rash Low 01/30/2020 Had reaction when younger Medications vitamin 28-0.6-0.4-340 MG capsule Take 1 capsule by mouth daily. Active fluticasone propionate (FLONASE) 50 MCG/ACT nasal spray 1 spray by Nasal route daily. Active cefdinir (OMNICEF) 300 MG Cap capsuleIndicatio ns:Strep throat Take 1 capsule (300 mg total) by mouth 2 (two) times daily. 20 capsule 4 02/16/20 25 Discontinue d(Therapy completed) amoxicillin (AMOXIL) 500 MG capsuleIndicatio ns:Strep pharyngitis Take 1 capsule (500 mg total) by mouth 2 (two) times daily for 10 days. 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 06/21/2023 Sore throat 06/16/2023 06/16/2023 Encounters Date Type Department Care Team Description 02/15/2025 Acquaintablet Message Enc [facility] Medical Group Family & Internal Medicine [address] [address] Troy Funes, DO Strep throat 02/15/2025 Telephone [facility] Medical Group Family & Internal Medicine [address] [address] Troy Funes, DO Medication Request 01/17/2025 Scan [facility] Scanned, Doc [...] on file 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 Gender Identity Not on file Sexual Orientation Not on file 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 Not on file Not on file Last Filed Vital Signs Vital Sign Reading Time Taken Comments Blood Pressure 114/64 10/16/2024 9:54 AM FOOD RUNNER Pulse 86 10/16/2024 9:54 AM FOOD RUNNER Temperature 36.3 C (97.3 F) 10/16/2024 9:54 AM FOOD RUNNER Respiratory Rate 16 10/16/2024 9:54 AM FOOD RUNNER Oxygen Saturation 98% 10/16/2024 9:54 AM FOOD RUNNER Inhaled Oxygen Concentration - - Weight 67.5 kg (148 lb 12.8 oz) 10/16/2024 9:54 AM FOOD RUNNER Height 160 cm (5' 3 ) 10/16/2024 9:54 AM FOOD RUNNER Body Mass Index 26.36 10/16/2024 9:54 AM FOOD RUNNER Plan of Treatment Health Maintenance Due Date Last Done Comments Cervical Cancer Screening Pap Smear (Age 30 to 64) Every 3 Years 1991 Annual Physical 01/29/2021 01/30/2020 Cervical Cancer Screening Pap with HPV Testing (Age 30 to 64) Every 5 Years 2021 Cervical Cancer Screening with HPV 2021 PHQ-2 (Physician [place]) 11/29/2024 10/16/2024 COVID-19 Vaccine ( season) 2025 09/12/2021, 12/07/2020, 11/16/2020 Postponed from 07/30/2024 (Patient Refused) DTaP, Tdap and Td Vaccines (10 - [...] 06/09/2007, 06/2007, 12/09/2006 Hepatitis C Completed 03/19/2023 Meningococcal B Vaccine Aged Out No l [...] Associated Diagnosis Comments OUTSIDE LAB (SCAN ORDER) 01/17/2025 OUTSIDE PT/INR (SCAN ORDER) 01/17/2025 OUTSIDE LAB (SCAN ORDER) 01/17/2025 OUTSIDE LAB (SCAN ORDER) 01/17/2025 HEPATITIS C ANTIBODY Routine 03/19/2023 12:00 AM CDT Screening for lipid disorders Screening for endocrine, metabolic and immunity disorder Annual physical exam Need for hepatitis C screening test from Last 3 Months or Most Recently Relevant to Health Maintenance Results * OUTSIDE PT/INR (SCAN ORDER) (01/17/2025) 01/17/2025 [employer] [facility] Scanned SCANNING Final Resu lt * OUTSIDE LAB (SCAN ORDER) (01/17/2025) Only the most recent of3 resultswithin the time period is included. 01/17/2025 [employer] [facility] Scanned SCANNING Final Resu lt * HEPATITIS C ANTIBODY ([facility] ONLY) (03/19/2023 12:00 AM CDT) 03/19/2023 [employer] Troy Funes DO LABORATORY Final Re sult [facility] ONBASE from Last 3 Months or Most Recently Relevant to Health Maintenance Insurance [facility] Care Teams Grades 1 Thru 5 Teacher Relationship Specialty Start Date End Date Troy Funes DO [address] [place] [id number] PCP - General FAMILY PRACTICE 01/30/20
--- OUTSIDE RECORDS SUMMARY | 2025-03-01 12:42 | XMS_ITS | Clinical Summary ---
Author Organization [facility] Address [address] [facility] [place] [address] Care Team Providers Care Assurance Assistant Name Role Phone Unavailable Primary Care Provider Unavailabl e Source Comments [facility],non-owned Affiliates and Associated Physician Practices is amultiple site organization consisting of ambulatory clinics and hospital sitesin [place], [place], [place]. This disclosure is being madepursuant to the Care Everywhere program and may not contain all information available regarding this patient. Last updated 18.[facility] [employer] Social History Tobacco Use Types Packs/Day Years [...] to complete this topic MENINGOCOCCAL (Group B) VACC INE SHARED DECISION-MAKING Aged Out No longer eligibl e based on patient's age to complete this topic MENINGOCOCCAL GROUPS A/C/Y/W VACCINE Aged Out No longer eligible b ased on patient's age to complete this topic PNEUMOCOCCAL VACCINE Aged Out No long er eligible based on patient's age to complete this topic
--- OUTSIDE RECORDS SUMMARY | 2025-03-01 12:42 | XMS_ITS | Encounter Summary ---
Author Organization 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 documented in this encounter Plan of Treatment Not on file documented as of this encounter Visit Diagnoses Diagnosis Strep pharyngitis- Primary Streptococcal sore throat documented in this encounter Additional Health Concerns Assessment Noted Time PHQ-9 Depression Total Score: 1 10/15/20 22 12:59 PM TOUR PRODUCTION SUPERVISOR documented as of this encounter Care Teams Bridge Expert Relationship Specialty Start Date End Date Troy Funes DO [address] [place] [address] PCP - General FAMILY PRACTICE 01/30/20 documented as of this encounter
--- OUTSIDE RECORDS SUMMARY | 2025-03-02 13:44 | XMS_ITS | Clinical Summary ---
Author Organization [facility] Address [address] [place] [address] Care Team Providers Care Beauty Artist Name Role Phone JulianneclintTroy gallagher DO Primary Care Provider + Allergies Active [...] Date Type Department Care Team Description 02/15/2025 Ace Metri[employer] Message Enc [facility] Medical Group Family & Internal Medicine [address] [address] Troy Funes, DO Strep throat 02/15/2025 Telephone [facility] Medical Group Family & Internal Medicine [address] [address] Troy Funes, DO Medication Request [...] on file Legal Sex Female 2: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 ASSISTANT Gender Identity Not on file Sexual Orientation Not on file 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 Not on file Not on file Last Filed Vital Signs Vital Sign Reading Time Taken Comments Blood Pressure 114/64 10/16/2024 9:54 AM GLASS 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 OPERATOR ASSISTANT Pulse 86 10/16/2024 9:54 AM GLASS 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 OPERATOR ASSISTANT Temperature 36.3 C (97.3 F) 10/16/2024 9:54 AM GLASS 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 OPERATOR ASSISTANT Respiratory Rate 16 10/16/2024 9:54 AM GLASS 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 OPERATOR ASSISTANT Oxygen Saturation 98% 10/16/2024 9:54 AM GLASS 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 OPERATOR ASSISTANT Inhaled Oxygen Concentration - - Weight 67.5 kg (148 lb 12.8 oz) 10/16/2024 9:54 AM GLASS 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 OPERATOR ASSISTANT Height 160 cm (5' 3 ) 10/16/2024 9:54 AM GLASS 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 OPERATOR ASSISTANT Body Mass Index 26.36 10/16/2024 9:54 AM GLASS 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 OPERATOR ASSISTANT Plan of Treatment Health Maintenance Due Date Last Done Comments Cervical Cancer Screening Pap Smear (Age 30 to 64) Every 3 Years 1991 Annual Physical 01/29/2021 01/30/2020 Cervical Cancer Screening Pap with HPV Testing (Age 30 to 64) Every 5 Years 2021 Cervical Cancer Screening with HPV 2021 PHQ-2 (Physician [place]) 11/29/2024 10/16/2024 COVID-19 Vaccine ( season) 2025 [...] * OUTSIDE PT/INR (SCAN ORDER) (01/17/2025) 01/17/2025 [employer] [facility] Scanned SCANNING Final Resu lt * OUTSIDE LAB (SCAN ORDER) (01/17/2025) Only the most recent of3 resultswithin the time period is included. 01/17/2025 [employer] [facility] Scanned SCANNING Final Resu lt * HEPATITIS C ANTIBODY ([facility] ONLY) (03/19/2023 12:00 AM CDT) 03/19/2023 [employer] Up Troy Funes DO LABORATORY Final Re sult [facility] ONBASE from Last 3 Months or Most Recently Relevant to Health Maintenance Insurance [facility] Care Teams Beauty Artist Relationship Specialty Start Date End Date Troy Funes DO [address] [place] [address] PCP - General FAMILY PRACTICE 01/30/20
--- OUTSIDE RECORDS SUMMARY | 2025-03-02 13:44 | XMS_ITS | Encounter Summary ---
Author Organization [facility] Address [address] [place] [address] Care Team Providers Care Commercial Fisherman Name Role Phone Troy Funes DO Primary Care Provider + Encounter Details Date Type Department Care Team (Late st Contact Info) Description 10/26/2023 AuditionBootht Message Enc [facility] Medical Group Family & Internal Medicine [facility] [address] [place] [address] Troy Funes DO [address] [place] [address] Dizziness and motion sickness Social [...] on file Legal Sex Female 2:45 PM KNOCKER OFF Gender Identity Not on file Sexual Orientation [...] Total Score: 1 10/15/20 22 12:59 PM KNOCKER OFF documented as of this encounter Care Teams Commercial Fisherman Relationship Specialty Start Date End Date Troy Funes DO [facility] [place] [address] PCP - General FAMILY PRACTICE 01/30/20 documented as of this encounter
--- OUTSIDE RECORDS SUMMARY | 2025-03-02 13:44 | XMS_ITS | Encounter Summary ---
Author Organization [facility] Address [address] [place] [address] Care Team Providers Care Traffic Analyst Name Role Phone Troy Funes DO Primary Care Provider + Encounter Details Date Type Department Care Team (Late st Contact Info) Description 06/28/[address] 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
--- OUTSIDE RECORDS SUMMARY | 2025-03-02 13:44 | XMS_ITS | Encounter Summary ---
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
--- OUTSIDE RECORDS SUMMARY | 2025-03-02 13:44 | XMS_ITS | Encounter Summary ---
Author Organization [facility] Address [address] [place] [address] Care Team Providers Care Business Analytics Manager Name Role Phone Troy Funes DO Primary Care Provider + Reason for Visit * Reason Onset Date Comments Question 02/15/2025 Encounter Details Date Type Department Care Team (Late st Contact Info) Description 02/15/2025 H-umus Message Enc [facility] Medical Group Family & Internal Medicine [facility] [address] [place] [phone] Troy Funes DO [address] [place] [address] Strep throat Social History Tobacco [...] on file Legal Sex Female 2:45 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
--- OUTSIDE RECORDS SUMMARY | 2025-03-02 13:44 | XMS_ITS | Clinical Summary ---
Author Organization [facility] Address [address] [facility] [place] [address] Care Team Providers Care Sales Operations Director Name Role Phone Unavailable Primary Care Provider Unavailabl e Source Comments [facility],non-owned Affiliates and Associated Physician Practices is amultiple site organization consisting of ambulatory clinics and hospital sitesin [place], [place], [place] and [place]. This disclosure is being madepursuant to the Care Everywhere program and may not contain all information available regarding this patient. Last updated 18.[facility] [employer] Social History Tobacco Use Types Packs/Day Years [...]
--- OUTSIDE RECORDS SUMMARY | 2025-03-02 13:44 | XMS_ITS | Encounter Summary ---
Author Organization [facility] Address [address] [place] [address] Care Team Providers Care Gas Compressor Operator Name Role Phone Troy Funes DO Primary Care Provider + Reason for Visit * Reason Onset Date Comments Question 11/08/2024 Encounter Details Date Type Department Care Team (Late st Contact Info) Description 11/08/2024 [employer] Message Enc [facility] Medical Group Family & Internal Medicine [facility] [address] [place] [phone] Troy uFnes DO [address] [place] [address] Strep throat Social History Tobacco [...] on file Legal Sex 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 GRAPHIC INSTRUMENT SUPERVISOR * Kim Ghosh - 11/09/2024 1:26 PM CST Patient is unsure of the name of the antibiotics she was on, she thinks it was something friendly that started with an A that was 2 times daily. Patient is still . GRAPHIC INSTRUMENT SUPERVISOR * Troy Funes DO - 11/09/2024 9:39 AM CST Please clarify what abx she took, for how long, and if she is still . I do not see it in PDMP. GRAPHIC INSTRUMENT SUPERVISOR documented in this encounter Plan of Treatment Not on file documented as of this encounter Visit Diagnoses Diagnosis Strep throat- Primary Streptococcal sore throat documented in this encounter Additional Health Concerns Assessment Noted Time PHQ-9 Depression Total Score: 1 10/15/20 22 12:59 PM TELEGRAPHIC INSTRUMENT SUPERVISOR documented as of this encounter Care Teams Gas Compressor Operator Relationship Specialty Start Date End Date Troy Funes DO [address] [place] [address] PCP - General FAMILY PRACTICE 01/30/20 documented as of this encounter
--- OUTSIDE RECORDS SUMMARY | 2025-03-02 13:44 | XMS_ITS | Clinical Summary ---
Author Organization Lisa [facility] [address] [place] [address] [address] [address] Care Team Providers Care Director Of Manufacturing Name Role Phone Unavailable Primary Care Provider [...] times daily. 35 Tablet 10/14/2022 6:53 PM ENGAGEMENT LIAISON 2 Active amoxicillin-cl avulanate (AUGMENTIN) 875-125 mg tablet Take 1 tablet (875 mg total) by mouth 2 (two) times daily for 10 days. 20 Tablet 10/15/2022 5:21 PM ENGAGEMENT LIAISON 2 Active vitamin-iron fumarate-folic acid 27 mg-0.8 mg Tablet Take 1 Capsule by mouth daily. Active ascorbic acid, vitamin C, (VITAMIN C) 1,000 mg Tablet Take 1,000 mg by mouth daily. Active fluticasone propionate (FLONASE) 50 mcg/spray [place], Suspension nasal inhaler 1 Active amoxicillin-cl avulanate (AUGMENTIN) 875-125 mg tablet Take 1 tablet by mouth 2 (two) times a day for 7 days 14 Tablet 03/27/2023 9:50 AM CDT 3 Active meclizine (ANTIVERT) 25 mg tablet Take 1 Tablet (25 mg) by mouth 3 times daily as needed. 30 Tablet 11/01/2023 8:45 AM ENGAGEMENT LIAISON 3 Active HYDROcodone-ac etaminophen (NORCO) 5-325 mg tablet Take 1-2 Tablets by mouth every 6 hours as needed. Max Daily Amount: 8 Tablets 10 Tablet 11/03/2023 2:55 PM ENGAGEMENT LIAISON 3 Active ibuprofen (MOTRIN) 600 mg tablet Take 1 Tablet (600 mg) by mouth every 6 hours as needed. 20 Tablet 11/03/2023 2:55 PM ENGAGEMENT LIAISON 3 Active chlorhexidine gluconate 0.12 % Mouthwash SWISH GENTLY 30 SECONDS WITH 20 ML EVERY 8 HOURS 473 mL 11/08/2023 3:02 PM ENGAGEMENT LIAISON 3 Active cyclobenzaprin e (FLEXERIL) 10 mg tablet Take 1 Tablet (10 mg) by mouth 3 times daily as needed for muscle spasm. 20 Tablet 06/05/2024 5:46 PM CDT 4 Active amoxicillin (AMOXIL) 500 mg capsule Take 1 Capsule (500 mg) by mouth every 12 hours until all doses are taken. 20 Capsule 10/19/2024 11:14 AM ENGAGEMENT LIAISON 4 Active azithromycin (Zithromax Z-Myron) 250 mg tablet Take 2 tablets by mouth on day 1, then take 1 tablet by mouth daily for days 2-5 6 Tablet 12/26/2024 6:11 PM ENGAGEMENT LIAISON 5 Active cefdinir (OMNICEF) 300 mg capsule Take 1 Capsule (300 mg) by mouth 2 times daily for 10 days. 20 Capsule 11/10/2024 3:50 PM ENGAGEMENT LIAISON 4 02/16/20 25 Discontinued amoxicillin (AMOXIL) 500 [...] Comments Blood Pressure 106/70 10/17/2022 8:29 AM ENGAGEMENT LIAISON Pulse 85 10/17/2022 8:29 AM ENGAGEMENT LIAISON Temperature 36.6 C (97.8 F) 10/17/2022 8:29 AM ENGAGEMENT LIAISON Respiratory Rate 14 10/17/2022 8:29 AM ENGAGEMENT LIAISON Oxygen Saturation 99% 10/17/2022 8:29 AM ENGAGEMENT LIAISON Inhaled Oxygen Concentration - - Weight 62.1 kg (136 lb 12.8 oz) 10/17/2022 8:29 AM ENGAGEMENT LIAISON Height 160 cm (5' 3 ) 10/17/2022 8:29 AM ENGAGEMENT LIAISON Body Mass Index 24.23 10/17/2022 8:29 AM ENGAGEMENT LIAISON Plan of Treatment Health Maintenance Due Date [...] age to complete this topic Insurance CHOICE [id number] RX [employer] PL[employer] (INTERNAL) [facility] RX [employer] RX [facility] [employer]
--- OUTSIDE RECORDS SUMMARY | 2025-03-02 13:44 | XMS_ITS | Clinical Summary ---
Author Organization [facility] 163 [facility] lt Address [address] [address] Care Team Providers Care Arranging Funeral Director Name Role Phone No, Physician Primary Care Provider [phone] Allergies Active Allergy Reactions Criticality Noted Date [...] on file Legal Sex Female 9:31 AM PC NETWORK TECHNICIAN Gender Identity Not on file Sexual [...] patient's age to complete this topic Insurance [facility] HMO/PPO Address: [facility] [id number] [place] [address] Care Teams Arranging Funeral Director Relationship Specialty Start Date End Date No, Physician PCP - General 12/04/19
--- OUTSIDE RECORDS SUMMARY | 2025-03-02 13:44 | XMS_ITS | Encounter Summary ---
Author Organization [facility] Address [address] [place] [address] Care Team Providers Care Regulatory Process Manager Name Role Phone Unavailable Primary Care Provider Unavailabl e Encounter Details Date Type Department Care Team (Late st Contact Info) Description 10/18/2023 Lab Requisition [facility] - DermPath Lab [address] [facility], [place] [phone] Yessi Del Cid MD [address] [facility] 3 [place] [address] Social History Tobacco Use Types Packs/Day Years [...] Diagnosis Comments DERMATOPATHOLOGY Routine 10/18/2023 2:33 PM ENGINEERING AND SCIENTIFIC PROGRAMMER documented in this encounter Results * DERMATOPATHOLOGY (10/18/2023 2:33 PM ENGINEERING AND SCIENTIFIC PROGRAMMER) Case Report Dermatopathology Report Case: [id number] Authorizing Provider: Yessi Del Cid MD Collected: 10/18/2023 02:33 PM Ordering Location: [facility] D[facility] Lab Received: 10/19/2023 03:53 PM Pathologist: Negin Oliva MD Specimen: Skin, left flank 3 2:18 PM ENGINEERING AND SCIENTIFIC PROGRAMMER DERMATOPATHOLOGY LABORATORY Final Diagnosis Specimen A. 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 The specimen consists of a shave biopsy measuring 6x5x1 mm. Jar 0. 3 2:18 PM [facility] DERMATOPATHOLOGY LABORATORY Microscopic Description Specimen A. SKIN, left flank: This is a compound nevus. There is a lentiginous proliferation of melanocytes along the dermal-epidermal junction, highlighted by MART-1/Melan-A immunohistochemical staining. There is underlying fibroplasia of the papillary dermis. The intradermal component is bland in appearance and matures with depth. Original and deeper sections were reviewed. (Compound Amol's Nevus) 3 2:18 PM [facility] DERMATOPATHOLOGY LABORATORY Disclaimer An external and internal positive and negative controls are appropriate for the histochemical, immunohistochemical and immunofluorescence stain(s) in this case (if any), except where stated explicitly. The performance characteristics of the stain(s) cited in this report were developed and its performance characteristic determined by the Dermatopathology Laboratory at [facility], directed by Dr. Cami Coley. These tests need not be, and therefore are not, approved by the [place] Food and Drug Administration. The tests are used for clinical purposes. Billing Codes Specimen Charges Stain Charges 33402 1 07487 1 3 2:18 PM [facility] DERMATOPATHOLOGY LABORATORY Embedded Images 3 2:18 PM [facility] DERMATOPATHOLOGY LABORATORY Pathology/Cytolo gy TISSUE SPECIMEN FROM SKIN / Unknown 10/18/2023 2:33 PM ENGINEERING AND SCIENTIFIC PROGRAMMER 10/19/2023 3:53 PM ENGINEERING AND SCIENTIFIC PROGRAMMER Yessi Del Cid MD LAB - PATHOLOGY/CYTO LOGY ORDERABLES DERMATOPATHOLOGY LABORATORY [facility] - Department of Dermatology [address], [address] [phone] documented in this encounter Visit Diagnoses Not on filedocumented in this encounter
--- OUTSIDE RECORDS SUMMARY | 2025-03-02 13:44 | XMS_ITS | Referral Summary ---
Author Organization [facility] 163 [facility] lt Address [address] 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
[2025-03-02 19:38] LABS: Hepatitis B Surface Antigen Negative (Negative)
== END 2025-03-02 13:42 | disposition home or self-care (01) ==
LOC: ANHGOSHLAB 13:41
PROVIDERS: PCP Obstetrics & Gynecology; Visit Provider Obstetrics & Gynecology
DX: D68.59 Other primary thrombophilia (principal)
CPT/HCPCS: 36415; 81240; 87340

== ENCOUNTER 2025-03-27 12:28 | Outpatient (CLI) | payer OTHER, SELFPAY ==
--- OUTSIDE RECORDS SUMMARY | 2025-03-27 13:27 | XMS_ITS | Clinical Summary ---
Author Organization [facility] Address [address] [facility] [place] [address] Care Team Providers Care Plastic Worker Name Role Phone Unavailable Primary Care Provider Unavailabl e Source Comments [facility],non-owned Affiliates and Associated Physician Practices is amultiple site organization consisting of ambulatory clinics and hospital sitesin [place], [place], [place] and [place]. This disclosure is being madepursuant to the Care Everywhere program and may not contain all information available regarding this patient. Last updated 18.[facility] [employer] Social History Tobacco Use Types Packs/Day Years Used Date Smoking Tobacco: Never Assessed Comments Unknown Sex and Gender Information Value Date Recorded Sex Assigned at Not on file Legal Sex Female 8:19 AM CDT Gender Identity Not on file Sexual Orientation Not on file Plan of Treatment Health Maintenance Due Date Last Done Comments PAP SMEAR 1991 HIV SCREENING 2006 HEPATITIS C SCREENING 05/10/2009 DTAP/TDAP/TD VACCINES (1 - Tdap) 2010 HEPATITIS B VACCINE (1 of 3 - 19+ 3-dose series) 2010 COVID-19 VACCINE ( - 2023-2 5 season) 2024 DEPRESSION SCREENING 11/29/2024 INFLUENZA VACCINE (Season Ended) 2025 ZOSTER VACCINE (1 of 2) 2041 HIB [...] patient's age to complete this topic Insurance [facility]
--- OUTSIDE RECORDS SUMMARY | 2025-03-27 13:27 | XMS_ITS | Encounter Summary ---
Author Organization [facility] Address [address] [place] [address] Care Team Providers Care Director Of Front Office Name Role Phone Troy Funes DO Primary Care Provider + Reason for Visit * Reason Onset Date Comments Question 11/08/2024 Encounter Details Date Type Department Care Team (Late st Contact Info) Description 11/08/2024 Beyond Alpha Message Enc [facility] Medical Group Family & Internal Medicine 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 MODEL * Kim Ghosh - 11/09/2024 1:26 PM CST Patient is unsure of the name of the antibiotics she was on, she thinks it was something friendly that started with an A that was 2 times daily. Patient is still . MODEL * Troy Funes DO - 11/09/2024 9:39 AM CST Please clarify what abx she took, for how long, and if she is still . I do not see it in PDMP. MODEL documented in this encounter Plan of Treatment Not on file documented as of this encounter Visit Diagnoses Diagnosis Strep throat- Primary Streptococcal sore throat documented in this encounter Additional Health Concerns Assessment Noted Time PHQ-9 Depression Total Score: 1 10/15/20 22 12:59 PM NUDE MODEL documented as of this encounter Care Teams Director Of Front Office Relationship Specialty Start Date End Date Troy Funes DO [address] [place] [address] PCP - General FAMILY PRACTICE 01/30/20 documented as of this encounter
--- OUTSIDE RECORDS SUMMARY | 2025-03-27 13:27 | XMS_ITS | Clinical Summary ---
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
--- OUTSIDE RECORDS SUMMARY | 2025-03-27 13:27 | XMS_ITS | Referral Summary ---
Author Organization 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
--- OUTSIDE RECORDS SUMMARY | 2025-03-27 13:27 | XMS_ITS | Encounter Summary ---
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
--- OUTSIDE RECORDS SUMMARY | 2025-03-27 13:27 | XMS_ITS | Encounter Summary ---
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
--- OUTSIDE RECORDS SUMMARY | 2025-03-27 13:27 | XMS_ITS | Encounter Summary ---
Author Organization [facility] Address [address] [facility] [place] [address] Care Team Providers Care Order Processing Specialist Name Role Phone Unavailable Primary Care Provider Unavailabl e Encounter Details Date Type Department Care Team (Late st Contact Info) Description 10/18/2023 Lab Requisition [facility] Lab [address] [facility], [place] [phone] Yessi Del Cid MD [address] [facility] 3 [place] [address] Social History Tobacco Use Types Packs/Day Years [...] Diagnosis Comments DERMATOPATHOLOGY Routine 10/18/2023 2:33 PM PORTFOLIO STRATEGIST documented in this encounter Results * DERMATOPATHOLOGY (10/18/2023 2:33 PM PORTFOLIO STRATEGIST) Case Report Dermatopathology Report Case: [id number] Authorizing Provider: Yessi Del Cid MD Collected: 10/18/2023 02:33 PM Ordering Location: [facility] Received: 10/19/2023 03:53 PM Pathologist: Negin Oliva MD Specimen: Skin, left flank 3 2:18 PM PORTFOLIO STRATEGIST DERMATOPATHOLOGY LABORATORY Final Diagnosis Specimen A. 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 The specimen consists of a shave biopsy measuring 6x5x1 mm. Jar 0. 3 2:18 PM [facility] DERMATOPATHOLOGY LABORATORY Microscopic Description Specimen A. SKIN, left flank: This is a compound nevus. There is a lentiginous proliferation of melanocytes along the dermal-epidermal junction, highlighted by MART-1/Melan-A immunohistochemical staining. There is underlying fibroplasia of the papillary dermis. The intradermal component is bland in appearance and matures with depth. Original and deeper sections were reviewed. (Compound Amol's Nevus) 3 2:18 PM [facility] DERMATOPATHOLOGY LABORATORY Disclaimer An external and internal positive and negative controls are appropriate for the histochemical, immunohistochemical and immunofluorescence stain(s) in this case (if any), except where stated explicitly. The performance characteristics of the stain(s) cited in this report were developed and its performance characteristic determined by the Dermatopathology Laboratory at [facility], directed by Dr. Cami Coley. These tests need not be, and therefore are not, approved by the [place] Food and Drug Administration. The tests are used for clinical purposes. Billing Codes Specimen Charges Stain Charges 49439 1 72938 1 3 2:18 PM [facility] DERMATOPATHOLOGY LABORATORY Embedded Images 3 2:18 PM [facility] DERMATOPATHOLOGY LABORATORY Pathology/Cytolo gy TISSUE SPECIMEN FROM SKIN / Unknown 10/18/2023 2:33 PM PORTFOLIO STRATEGIST 10/19/2023 3:53 PM PORTFOLIO STRATEGIST us Yessi Del Cid MD LAB - PATHOLOGY/CYTOLOGY ORD ERABLES Final Result DERMATOPATHOLOGY LABORATORY [facility] - Department of Dermatology [address] [phone] documented in this encounter Visit Diagnoses Not on filedocumented in this encounter
--- OUTSIDE RECORDS SUMMARY | 2025-03-27 13:27 | XMS_ITS | Clinical Summary ---
Author Organization [facility] Address [address] [place] [address] Care Team Providers Care Tractor Technician Name Role Phone Troy Funes DO Primary Care Provider + Allergies Active Allergy Reactions Criticality Noted Date Comments Sulfa Antibiotics Unknown,Rash Low 01/30/2020 Had reaction when younger Medications vitamin 28-0.6-0.4-340 MG capsule Take 1 capsule by mouth daily. Active fluticasone propionate (FLONASE) 50 MCG/ACT nasal spray 1 spray by Nasal route daily. Active amoxicillin (AMOXIL) 500 MG capsuleIndicatio ns:Strep pharyngitis [...] Date Type Department Care Team Description 02/15/2025 MyChart Message Enc [facility] Family & Internal Medicine [address] [phone] Troy Funes DO Strep throat 02/15/2025 Telephone [facility] Family & Internal Medicine [address] [address] Troy Funes DO Medication Request 01/17/2025 Scan [facility] INFO SRVCS Scanned, [facility] Lab (SCAN) from Last 3 Months Immunizations Immunization Administration Dates Next Due Afluria 36 MONTHS+ [...] on file Legal Sex Female 2:45 PM ARTIFICIAL FLOWER MAKER Gender Identity Not on file Sexual Orientation Not on file 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 Not on file Not on file Last Filed Vital Signs Vital Sign Reading Time Taken Comments Blood Pressure 114/64 10/16/2024 9:54 AM ARTIFICIAL FLOWER MAKER Pulse 86 10/16/2024 9:54 AM ARTIFICIAL FLOWER MAKER Temperature 36.3 C (97.3 F) 10/16/2024 9:54 AM ARTIFICIAL FLOWER MAKER Respiratory Rate 16 10/16/2024 9:54 AM ARTIFICIAL FLOWER MAKER Oxygen Saturation 98% 10/16/2024 9:54 AM ARTIFICIAL FLOWER MAKER Inhaled Oxygen Concentration - - Weight 67.5 kg (148 lb 12.8 oz) 10/16/2024 9:54 AM ARTIFICIAL FLOWER MAKER Height 160 cm (5' 3 ) 10/16/2024 9:54 AM ARTIFICIAL FLOWER MAKER Body Mass Index 26.36 10/16/2024 9:54 AM ARTIFICIAL FLOWER MAKER Plan of Treatment Health Maintenance Due Date Last Done Comments Cervical Cancer Screening Pap Smear (Age 30 to 64) Every 3 Years 1991 Annual Physical 01/29/2021 01/30/2020 Cervical Cancer Screening Pap with HPV Testing (Age 30 to 64) Every 5 Years 2021 Cervical Cancer Screening with HPV 2021 PHQ-2 (Physician [place]) 11/29/2024 10/16/2024 COVID-19 Vaccine ( season) 2025 [...] 5 Years) and At-Risk Patients (6 to 49 Years) Aged Out No longer eligible based [...] * OUTSIDE PT/INR (SCAN ORDER) (01/17/2025) 01/17/2025 [employer] [facility] Scanned SCANNING Final Resu lt * OUTSIDE LAB (SCAN ORDER) (01/17/2025) Only the most recent of3 resultswithin the time period is included. 01/17/2025 [employer] Scanned SCANNING Final Resu lt * HEPATITIS C ANTIBODY ([facility] ONLY) (03/19/2023 12:00 AM CDT) 03/19/2023 [employer] Troy Funes DO LABORATORY Final Re sult [facility] ONBASE from Last 3 Months or Most Recently Relevant to Health Maintenance Insurance [facility] Care Teams Tractor Technician Relationship Specialty Start Date End Date Troy Funes DO [address] [place] [id number] PCP - General FAMILY PRACTICE 01/30/20
--- OUTSIDE RECORDS SUMMARY | 2025-03-27 13:27 | XMS_ITS | Clinical Summary ---
Author Organization Lisa Cook [facility] Specialty [facility] [address] [place] [address] [address] [address] Care Team Providers Care Metal Miner Name Role Phone Unavailable Primary Care Provider [...] times daily. 35 Tablet 10/14/2022 6:53 PM COST ACCOUNTING MANAGER 10/14/2022 Active amoxicillin-cla vulanate (AUGMENTIN) 875-125 mg tablet Take 1 tablet (875 mg total) by mouth 2 (two) times daily for 10 days. 20 Tablet 10/15/2022 5:21 PM COST ACCOUNTING MANAGER 10/15/2022 Active vitamin-iron fumarate-folic acid 27 mg-0.8 mg Tablet Take 1 Capsule by mouth daily. Active ascorbic acid, vitamin C, (VITAMIN C) 1,000 mg Tablet Take 1,000 mg by mouth daily. Active fluticasone propionate (FLONASE) 50 mcg/spray [place], Suspension nasal inhaler 09/29/2021 Activ e amoxicillin-cla vulanate (AUGMENTIN) 875-125 mg tablet Take 1 tablet by mouth 2 (two) times a day for 7 days 14 Tablet 03/27/2023 9:50 AM CDT 03/27/2023 Active meclizine (ANTIVERT) 25 mg tablet Take 1 Tablet (25 mg) by mouth 3 times daily as needed. 30 Tablet 11/01/2023 8:45 AM COST ACCOUNTING MANAGER 10/27/2023 Active HYDROcodone-troy taminophen (NORCO) 5-325 mg tablet Take 1-2 Tablets by mouth every 6 hours as needed. Max Daily Amount: 8 Tablets 10 Tablet 11/03/2023 2:55 PM COST ACCOUNTING MANAGER 11/03/2023 Active ibuprofen (MOTRIN) 600 mg tablet Take 1 Tablet (600 mg) by mouth every 6 hours as needed. 20 Tablet 11/03/2023 2:55 PM COST ACCOUNTING MANAGER 11/03/2023 Active chlorhexidine gluconate 0.12 % Mouthwash SWISH GENTLY 30 SECONDS WITH 20 ML EVERY 8 HOURS 473 mL 11/08/2023 3:02 PM COST ACCOUNTING MANAGER 11/08/2023 Active cyclobenzaprine (FLEXERIL) 10 mg tablet Take 1 Tablet (10 mg) by mouth 3 times daily as needed for muscle spasm. 20 Tablet 06/05/2024 5:46 PM CDT 06/05/2024 Active amoxicillin (AMOXIL) 500 mg capsule Take 1 Capsule (500 mg) by mouth every 12 hours until all doses are taken. 20 Capsule 10/19/2024 11:14 AM COST ACCOUNTING MANAGER 10/19/2024 Active azithromycin (Zithromax Z-Myron) 250 mg tablet Take 2 tablets by mouth on day 1, then take 1 tablet by mouth daily for days 2-5 6 Tablet 12/26/2024 6:11 PM COST ACCOUNTING MANAGER 12/26/2024 Active amoxicillin (AMOXIL) 500 mg capsule Take 1 capsule (500 mg total) by mouth 2 (two) times daily for 10 days. 20 Capsule 02/15/2025 3:12 PM CDT 02/15/2025 02/26/20 25 Active Problems No known active problems Encounters Date Type Department Care Team Description 03/13/2025 External Device Data ST[facility] ABSTRACTION Provider, Abstract [...] Comments Blood Pressure 106/70 10/17/2022 8:29 AM COST ACCOUNTING MANAGER Pulse 85 10/17/2022 8:29 AM COST ACCOUNTING MANAGER Temperature 36.6 C (97.8 F) 10/17/2022 8:29 AM COST ACCOUNTING MANAGER Respiratory Rate 14 10/17/2022 8:29 AM COST ACCOUNTING MANAGER Oxygen Saturation 99% 10/17/2022 8:29 AM COST ACCOUNTING MANAGER Inhaled Oxygen Concentration - - Weight 62.1 kg (136 lb 12.8 oz) 10/17/2022 8:29 AM COST ACCOUNTING MANAGER Height 160 cm (5' 3 ) 10/17/2022 8:29 AM COST ACCOUNTING MANAGER Body Mass Index 24.23 10/17/2022 8:29 AM COST ACCOUNTING MANAGER Plan of Treatment Health Maintenance Due Date Last Done Comments HPV/Cotest (21-29) 2012 CERVICAL CANCER SCREENING 2021 HPV/Cotest (30-65) 2021 PAP SMEAR 2021 INFLUENZA VACCINE (#1) 2024 9, 08/26/2016, 10/10/2015 DTAP/TDAP/TD VACCINES (10 - Td or Tdap) 01/29/2030 01/30/2020, 05/05/2018, 03/18/2015, Additional history exists HEPATITIS B VACCINES Completed 03/17/2001, 12/09/2000, 10/07/2000 HPV VACCINES Completed 10/02/2009, 02/2009, 02/27/2009 Insurance RX [employer]OA PLANS (INTERNAL) [facility] RX [facility] Express RX [facility]
--- OUTSIDE RECORDS SUMMARY | 2025-03-27 13:27 | XMS_ITS | Encounter Summary ---
Author Organization [facility] Address [address] [place] [address] Care Team Providers Care Account Representative Name Role Phone Troy Funes Jean MORENO Primary Care Provider + Encounter Details Date Type Department Care Team (Late st Contact Info) Description 03/29/2023 BEAT BioTherapeuticst Message Enc [facility] Medical Group Family & Internal Medicine [facility] [address] [place] [address] Millicent Garner APNP [address] [place] [address] Cancel appointment no longer need [...] on file Legal Sex Female 2:45 PM FOREIGN FOOD COOK SPECIALTY Gender Identity Not on file Sexual Orientation [...] Total Score: 1 10/15/20 22 12:59 PM FOREIGN FOOD COOK SPECIALTY documented as of this encounter Care Teams Account Representative Relationship Specialty Start Date End Date Troy Funes DO [address] [place] [address] PCP - General FAMILY PRACTICE 01/30/20 documented as of this encounter
--- OUTSIDE RECORDS SUMMARY | 2025-03-27 13:27 | XMS_ITS | Encounter Summary ---
Author Organization [facility] Address [address] [place] [address] Care Team Providers Care Personnel Consultant Name Role Phone Troy Funes DO Primary Care Provider + Encounter Details Date Type Department Care Team (Late st Contact Info) Description 10/26/2023 AwoXt Message Enc [facility] Medical Group Family & Internal Medicine [facility] [address] [place] [address] Troy Funes DO [address] [place] [address] Dizziness and motion sickness Social [...] on file Legal Sex Female 2:45 PM INTERVENTIONAL PHYSICIAN Gender Identity Not on file Sexual Orientation [...] Total Score: 1 10/15/20 22 12:59 PM INTERVENTIONAL PHYSICIAN documented as of this encounter Care Teams Personnel Consultant Relationship Specialty Start Date End Date Troy Funes DO [facility] [place] [address] PCP - General FAMILY PRACTICE 01/30/20 documented as of this encounter
[2025-03-27 20:25] LABS: Hematocrit 36.5 % (37.0-47.0)
[2025-03-27 20:33] LABS: Glucose 1 Hour PP 50gm Dose 116 mg/dL
[2025-03-27 21:00] LABS: Syphilis IgG/IgM Antibody Negative (Negative)
[2025-03-27 21:04] LABS: Hepatitis B Surface Antigen Negative (Negative)
== END 2025-03-27 12:29 | disposition home or self-care (01) ==
LOC: ANHGOSHLAB 12:29
PROVIDERS: PCP Obstetrics & Gynecology; Visit Provider Obstetrics & Gynecology
DX: Z34.90 Encounter for supervision of normal pregnancy, unspecified, unspecified trimester (principal); Z3A.00 Weeks of gestation of pregnancy not specified
CPT/HCPCS: 36415; 82947; 85014; 85018; 86593; 87340

== ENCOUNTER 2025-05-16 11:30 | Outpatient (CLI) | payer OTHER, SELFPAY ==
--- OUTSIDE RECORDS SUMMARY | 2025-05-16 13:22 | XMS_ITS | Clinical Summary ---
Author Organization [facility] Address [address] [place] [address] Care Team Providers Care Fire Observer Name Role Phone Unavailable Primary Care Provider Unavailabl e Source Comments [facility],non-owned Affiliates and Associated Physician Practices is amultiple site organization consisting of ambulatory clinics and hospital sitesin [place], [place], [place] and [place]. This disclosure is being madepursuant to the Care Everywhere program and may not contain all information available regarding this patient. Last updated 18.[facility] [employer] Social History Tobacco Use Types Packs/Day Years Used Date Smoking Tobacco: Never Assessed Comments Unknown Sex and Gender Information Value Date Recorded Sex Assigned at Not on file Legal Sex Female 8:19 AM CDT Gender Identity Not on file Sexual Orientation Not on file Plan of Treatment Health Maintenance Due Date Last Done Comments HIV SCREENING 2006 HEPATITIS C SCREENING 05/10/2009 DTAP/TDAP/TD VACCINES (1 - Tdap) 2010 HEPATITIS B VACCINE (1 of 3 - 19+ 3-dose series) 2010 PAP SMEAR 2012 COVID-19 VACCINE ( - 2023-2 5 season) [...] patient's age to complete this topic Insurance [facility]
--- OUTSIDE RECORDS SUMMARY | 2025-05-16 13:22 | XMS_ITS | Encounter Summary ---
Author Organization [facility] Address [address] [place] [address] Care Team Providers Care Rn Progressive Care Name Role Phone Troy Funes DO Primary Care Provider + Reason for Visit * Reason Onset Date Comments Question 02/15/2025 Encounter Details Date Type Department Care Team (Late st Contact Info) Description 02/15/2025 Bababoo Message Enc [facility] Medical Group Family & Internal Medicine [facility] [address] [place] [phone] Troy Funes DO [address] [place] [address] Strep throat Social History Tobacco [...] on file Legal Sex Female 2:45 PM ORACLE 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
--- OUTSIDE RECORDS SUMMARY | 2025-05-16 13:22 | XMS_ITS | Clinical Summary ---
Author Organization [facility] [address] [facility] lt Address [address] [place] [address] Care Team Providers Care Precision Millwright Name Role Phone No, Physician Primary Care Provider [phone] Allergies Active Allergy Reactions Criticality Noted Date [...] on file Legal Sex Female 9:31 AM REPORTER Gender Identity Not on file Sexual Orientation [...] 8:22 AM CDT Height 160 cm (5' 3) 03/27/2023 8:22 AM CDT Body Mass Index 24.8 03/27/2023 8:22 AM CDT Plan of Treatment Health Maintenance Due Date Last Done Comments Cervical Cancer Screening 1991 Depression Screening 1991 Hepatitis C Screening 1991 Regular Well Visit/Exam 18-64 2009 Varicella Vaccines (2 of 2 - 13+ 2-dose series) 08/20/2015 07/23/2015 Influenza Vaccine (Season Ended) 2025 09/29/2019, 10/06/2018, 10/28/2017, Additional history exists DTaP/Tdap/Td Vaccine (10 - Td or Tdap) 01/29/2030 01/30/2020, 05/05/2018, 03/18/2015, Additional history exists Hepatitis B Screening Completed 03/17/2001 , 12/09/2000, 10/07/2000 HPV Vaccines Completed 06/09/2007, 06/2007, 12/09/2006 Pneumococcal vaccine <65 Aged Out No longer eligible based on patient's age to complete this topic Insurance [facility] Care Teams Precision Millwright Relationship Specialty Start Date End Date No, Physician PCP - General 12/04/19
--- OUTSIDE RECORDS SUMMARY | 2025-05-16 13:22 | XMS_ITS | Clinical Summary ---
Author Organization [facility] Address [address] [place] [address] Care Team Providers Care Newspaper Peddler Name Role Phone Troy Funes DO Primary Care Provider + Allergies Active Allergy Reactions Criticality Noted Date Comments Sulfa Antibiotics Unknown,Rash Low 01/30/2020 Had reaction when younger Medications vitamin 28-0.6-0.4-340 MG capsule Take 1 capsule by mouth daily. Active fluticasone propionate (FLONASE) 50 MCG/ACT nasal spray 1 spray by Nasal route daily. 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 06/21/2023 Sore throat 06/16/2023 06/16/2023 Encounters Date Type Department Care Team Description 02/15/2025 Adhere2Caret Message Enc [facility] Family & Internal Medicine [address] [address] Troy Funes DO Strep throat 02/15/2025 Telephone [facility] Family & Internal Medicine [address] [address] Troy Funes DO Medication Request from Last 3 Months Immunizations Immunization Administration [...] on file Legal Sex Female 2:45 PM LEATHER SPONGER Gender Identity Not on file Sexual Orientation Not on file 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 Not on file Not on file Last Filed Vital Signs Vital Sign Reading Time Taken Comments Blood Pressure 114/64 10/16/2024 9:54 AM LEATHER SPONGER Pulse 86 10/16/2024 9:54 AM LEATHER SPONGER Temperature 36.3 C (97.3 F) 10/16/2024 9:54 AM LEATHER SPONGER Respiratory Rate 16 10/16/2024 9:54 AM LEATHER SPONGER Oxygen Saturation 98% 10/16/2024 9:54 AM LEATHER SPONGER Inhaled Oxygen Concentration - - Weight 67.5 kg (148 lb 12.8 oz) 10/16/2024 9:54 AM LEATHER SPONGER Height 160 cm (5' 3) 10/16/2024 9:54 AM LEATHER SPONGER Body Mass Index 26.36 10/16/2024 9:54 AM LEATHER SPONGER Plan of Treatment Health Maintenance Due Date Last Done Comments Cervical Cancer Screening Pap Smear (Age 30 to 64) Every 3 Years 1991 Annual Physical 01/29/2021 01/30/2020 Cervical Cancer Screening Pap with HPV Testing (Age 30 to 64) Every 5 Years 2021 Cervical Cancer Screening with HPV 2021 PHQ-2 (Physician [place]) 11/29/2024 10/16/2024 COVID-19 Vaccine ( season) 2025 [...] Procedure Name Priority Date/Time Associated Diagnosis Comments HEPATITIS C ANTIBODY Routine 03/19/2023 12:00 AM CDT Screening for lipid disorders Screening for endocrine, metabolic and immunity disorder Annual physical exam Need for hepatitis C screening test from Last 3 Months or Most Recently Relevant to Health Maintenance Results * HEPATITIS C ANTIBODY ([facility] ONLY) (03/19/2023 12:00 AM CDT) 03/19/2023 Troy Funes DO LABORATORY Final Re sult [facility] ONBASE from Last 3 Months or Most Recently Relevant to Health Maintenance Insurance [employer] Care Teams Newspaper Peddler Relationship Specialty Start Date End Date Troy Funes DO [address] [place] [address] PCP - General FAMILY PRACTICE 01/30/20
--- OUTSIDE RECORDS SUMMARY | 2025-05-16 13:23 | XMS_ITS | Encounter Summary ---
Author Organization [facility] Address [address] [place] [address] Care Team Providers Care Telemetry Technician Name Role Phone Troy Funes DO Primary Care Provider + Encounter Details Date Type Department Care Team (Late st Contact Info) Description 06/28/2023 MyChart Message Enc [facility] Medical Group Family & Internal Medicine [facility] [address] [place] [address] Troy Funes DO [address] [place] [address] [place] [facility] Social History Tobacco Use Types Packs/Day [...] on file Legal Sex Female 2:45 PM ENDOSCOPY RN Gender Identity Not on file Sexual Orientation [...] Total Score: 1 10/15/20 22 12:59 PM ENDOSCOPY RN documented as of this encounter Care Teams Telemetry Technician Relationship Specialty Start Date End Date Troy Funes DO [address] [place] [address] PCP - General FAMILY PRACTICE 01/30/20 documented as of this encounter
--- OUTSIDE RECORDS SUMMARY | 2025-05-16 13:23 | XMS_ITS | Encounter Summary ---
Author Organization [facility] Address [address] [place] [address] Care Team Providers Care Boilermaker'S Assistant Name Role Phone Troy Funes Jean MORENO Primary Care Provider + Encounter Details Date Type Department Care Team (Late st Contact Info) Description 03/29/[address] [facility] Medical Group Family & Internal Medicine [facility] [address] [place] [address] Millicent Garner APNP [address] [place] [address] Cancel appointment no longer need [...] on file Legal Sex Female 2:45 PM BANKRUPTCY LEGAL ASSISTANT Gender Identity Not on file Sexual [...] Total Score: 1 10/15/20 22 12:59 PM BANKRUPTCY LEGAL ASSISTANT documented as of this encounter Care Teams Boilermaker'S Assistant Relationship Specialty Start Date End Date Troy Funes DO [address] [place] [address] PCP - General FAMILY PRACTICE 01/30/20 documented as of this encounter
--- OUTSIDE RECORDS SUMMARY | 2025-05-16 13:23 | XMS_ITS | Referral Summary ---
Author Organization [facility] [place] [place] 163 [facility] lt Address [address] [facility] [address] Care Team Providers Care In Process Inspector Name Role Phone No, Physician Primary Care Provider [phone] Allergies Active Allergy Reactions Criticality Noted Date [...] on file Legal Sex Female 9:31 AM PROFESSOR OF HISTORICAL THEOLOGY Gender Identity Not on file Sexual Orientation [...] of Treatment Not on file Insurance R [facility]/PPO Address: [address] [address] Care Teams In Process Inspector Relationship Specialty Start Date End Date No, Physician PCP - General 12/04/19
--- OUTSIDE RECORDS SUMMARY | 2025-05-16 13:23 | XMS_ITS | Clinical Summary ---
Author Organization Lisa Cook [facility] [address] [place] [address] [address] [address] Care Team Providers Care Toucher Up Name Role Phone Unavailable Primary Care Provider [...] times daily. 35 Tablet 10/14/2022 6:53 PM BRUSHER MACHINE 10/14/2022 Active amoxicillin-cla vulanate (AUGMENTIN) 875-125 mg tablet Take 1 tablet (875 mg total) by mouth 2 (two) times daily for 10 days. 20 Tablet 10/15/2022 5:21 PM BRUSHER MACHINE 10/15/2022 Active vitamin-iron fumarate-folic acid 27 mg-0.8 mg Tablet Take 1 Capsule by mouth daily. Active ascorbic acid, vitamin C, (VITAMIN C) 1,000 mg Tablet Take 1,000 mg by mouth daily. Active fluticasone propionate (FLONASE) 50 mcg/spray [place], Suspension nasal inhaler 09/29/2021 Activ e amoxicillin-cla vulanate (AUGMENTIN) 875-125 mg tablet Take 1 tablet by mouth 2 (two) times a day for 7 days 14 Tablet 03/27/2023 9:50 AM CDT 03/27/2023 Active meclizine (ANTIVERT) 25 mg tablet Take 1 Tablet (25 mg) by mouth 3 times daily as needed. 30 Tablet 11/01/2023 8:45 AM BRUSHER MACHINE 10/27/2023 Active HYDROcodone-troy taminophen (NORCO) 5-325 mg tablet Take 1-2 Tablets by mouth every 6 hours as needed. Max Daily Amount: 8 Tablets 10 Tablet 11/03/2023 2:55 PM BRUSHER MACHINE 11/03/2023 Active ibuprofen (MOTRIN) 600 mg tablet Take 1 Tablet (600 mg) by mouth every 6 hours as needed. 20 Tablet 11/03/2023 2:55 PM BRUSHER MACHINE 11/03/2023 Active chlorhexidine gluconate 0.12 % Mouthwash SWISH GENTLY 30 SECONDS WITH 20 ML EVERY 8 HOURS 473 mL 11/08/2023 3:02 PM BRUSHER MACHINE 11/08/2023 Active cyclobenzaprine (FLEXERIL) 10 mg tablet Take 1 Tablet (10 mg) by mouth 3 times daily as needed for muscle spasm. 20 Tablet 06/05/2024 5:46 PM CDT 06/05/2024 Active amoxicillin (AMOXIL) 500 mg capsule Take 1 Capsule (500 mg) by mouth every 12 hours until all doses are taken. 20 Capsule 10/19/2024 11:14 AM BRUSHER MACHINE 10/19/2024 Active azithromycin (Zithromax Z-Myron) 250 mg tablet Take 2 tablets by mouth on day 1, then take 1 tablet by mouth daily for days 2-5 6 Tablet 12/26/2024 6:11 PM BRUSHER MACHINE 12/26/2024 Active Active Problems No known active problems Encounters Date Type Department Care Team Description 04/24/2025 External Device Data STL ABSTRACTION Provider, Abstract 04/19/2025 External Device Data STL ABSTRACTION Provider, Abstract 04/18/2025 External Device Data STL ABSTRACTION Provider, Abstract 03/13/2025 External Device Data STL ABSTRACTION Provider, [...] Comments Blood Pressure 106/70 10/17/2022 8:29 AM BRUSHER MACHINE Pulse 85 10/17/2022 8:29 AM BRUSHER MACHINE Temperature 36.6 C (97.8 F) 10/17/2022 8:29 AM BRUSHER MACHINE Respiratory Rate 14 10/17/2022 8:29 AM BRUSHER MACHINE Oxygen Saturation 99% 10/17/2022 8:29 AM BRUSHER MACHINE Inhaled Oxygen Concentration - - Weight 62.1 kg (136 lb 12.8 oz) 10/17/2022 8:29 AM BRUSHER MACHINE Height 160 cm (5' 3) 10/17/2022 8:29 AM BRUSHER MACHINE Body Mass Index 24.23 10/17/2022 8:29 AM BRUSHER MACHINE Plan of Treatment Health Maintenance Due Date Last Done Comments HPV/Cotest (21-29) 2012 CERVICAL CANCER SCREENING 2021 HPV/Cotest (30-65) 2021 PAP SMEAR 2021 INFLUENZA VACCINE (#1) 2024 9, 08/26/2016, 10/10/2015 DTAP/TDAP/TD VACCINES (10 - Td or Tdap) 01/29/2030 01/30/2020, 05/05/2018, 03/18/2015, Additional history exists HEPATITIS B VACCINES Completed 03/17/2001, 12/09/2000, 10/07/2000 HPV VACCINES Completed 10/02/2009, 02/2009, 02/27/2009 Insurance CHOICE [id number] RX [employer] PLANS (INTERNAL) [facility] RX [facility] Express RX [facility]
--- OUTSIDE RECORDS SUMMARY | 2025-05-16 13:23 | XMS_ITS | Encounter Summary ---
Author Organization [facility] Address [address] [place] [address] Care Team Providers Care Cementer Machine Joiner Name Role Phone Unavailable Primary Care Provider Unavailabl e Encounter Details Date Type Department Care Team (Late st Contact Info) Description 10/18/2023 Lab Requisition [facility] - DermPath Lab [address] [facility] [place] [phone] Yessi Del Cid MD [address] [facility] [address] [place] [address] Social History Tobacco Use Types Packs/Day Years [...] Diagnosis Comments DERMATOPATHOLOGY Routine 10/18/2023 2:33 PM CARBON DIOXIDE OPERATOR documented in this encounter Results * DERMATOPATHOLOGY (10/18/2023 2:33 PM CARBON DIOXIDE OPERATOR) Case Report Dermatopathology Report Case: [id number] Authorizing Provider: Yessi Del Cid MD Collected: 10/18/2023 02:33 PM Ordering Location: [facility] DermPath Lab Received: 10/19/2023 03:53 PM Pathologist: Negin Oliva MD Specimen: Skin, left flank 3 2:18 PM CARBON DIOXIDE OPERATOR DERMATOPATHOLOGY LABORATORY Final Diagnosis Specimen A. 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 The specimen consists of a shave biopsy measuring 6x5x1 mm. Jar 0. 3 2:18 PM [facility] DERMATOPATHOLOGY LABORATORY Microscopic Description Specimen A. SKIN, left flank: This is a compound nevus. There is a lentiginous proliferation of melanocytes along the dermal-epidermal junction, highlighted by MART-1/Melan-A immunohistochemical staining. There is underlying fibroplasia of the papillary dermis. The intradermal component is bland in appearance and matures with depth. Original and deeper sections were reviewed. (Compound Amol's Nevus) 3 2:18 PM [facility] DERMATOPATHOLOGY LABORATORY Disclaimer An external and internal positive and negative controls are appropriate for the histochemical, immunohistochemical and immunofluorescence stain(s) in this case (if any), except where stated explicitly. The performance characteristics of the stain(s) cited in this report were developed and its performance characteristic determined by the Dermatopathology Laboratory at [facility], directed by Dr. Cami Coley. These tests need not be, and therefore are not, approved by the [place] Food and Drug Administration. The tests are used for clinical purposes. Billing Codes Specimen Charges Stain Charges 87363 1 88452 1 3 2:18 PM [facility] DERMATOPATHOLOGY LABORATORY Embedded Images 3 2:18 PM [facility] DERMATOPATHOLOGY LABORATORY Pathology/Cytolo gy TISSUE SPECIMEN FROM SKIN / Unknown 10/18/2023 2:33 PM CARBON DIOXIDE OPERATOR 10/19/2023 3:53 PM CARBON DIOXIDE OPERATOR us Yessi Del Cid MD LAB - PATHOLOGY/CYTOLOGY ORD ERABLES Final Result DERMATOPATHOLOGY LABORATORY [facility] - Department of Dermatology [address], [address] [phone] documented in this encounter Visit Diagnoses Not on filedocumented in this encounter
--- OUTSIDE RECORDS SUMMARY | 2025-05-16 13:23 | XMS_ITS | Encounter Summary ---
Author Organization [facility] Address [address] [place] [address] Care Team Providers Care Count Team Member Name Role Phone Troy Funes DO Primary Care Provider + Encounter Details Date Type Department Care Team (Late st Contact Info) Description 10/26/2023 Actimizet Message Enc [facility] Medical Group Family & Internal Medicine [facility] [address] [place] [address] Troy Funes DO [address] [place] [address] Dizziness and motion sickness Social [...] on file Legal Sex Female 2:45 PM JUNIOR AUTOMATION ENGINEER Gender Identity Not on file Sexual [...] Total Score: 1 10/15/20 22 12:59 PM JUNIOR AUTOMATION ENGINEER documented as of this encounter Care Teams Count Team Member Relationship Specialty Start Date End Date Troy Funes DO [facility] [place] [address] PCP - General FAMILY PRACTICE 01/30/20 documented as of this encounter
[2025-05-16 19:54] LABS: HIV 1/2 Ab P24 Ag Result Negative (Negative)
== END 2025-05-16 11:31 | disposition home or self-care (01) ==
PROVIDERS: Visit Provider Obstetrics & Gynecology
DX: O98.719 Human immunodeficiency virus [HIV] disease complicating pregnancy, unspecified trimester (principal); Z3A.00 Weeks of gestation of pregnancy not specified; Z72.9 Problem related to lifestyle, unspecified
CPT/HCPCS: 36415; 86703; G0432

== ENCOUNTER 2025-06-26 05:59 | Inpatient (IN) | payer OTHER, SELFPAY ==
[2025-06-26] VITALS (108 sets, daily range): BP systolic 70–144; BP diastolic 41–80; PULSE 25–140; RESP 16–18; TEMP 36.4–36.8; O2SAT 77–100
--- OUTSIDE RECORDS SUMMARY | 2025-06-26 06:05 | XMS_ITS | Encounter Summary ---
Author Organization [facility] Address [address] [place] [address] Care Team Providers Care Jacquard Plate Maker Name Role Phone Troy Funes DO Primary Care Provider + Reason for Visit * Reason Onset Date Comments Question 02/15/2025 Encounter Details Date Type Department Care Team (Late st Contact Info) Description 02/15/2025 AGV Media Message Enc [facility] Medical Group Family & Internal Medicine [facility] [address] [place] [phone] Troy Funes DO [address] [place] [address] Strep throat Social History Tobacco [...] on file Legal Sex Female 2:45 PM PSYCHOLOGIST ENGINEERING Gender Identity Not on file Sexual Orientation [...] Total Score: 1 10/15/20 22 12:59 PM PSYCHOLOGIST ENGINEERING documented as of this encounter Care Teams Jacquard Plate Maker Relationship Specialty Start Date End Date Troy Funes DO [address] [place] [address] PCP - General FAMILY PRACTICE 01/30/20 documented as of this encounter
--- OUTSIDE RECORDS SUMMARY | 2025-06-26 06:05 | XMS_ITS | Encounter Summary ---
Author Organization [facility] Address [address] [place] [address] Care Team Providers Care Farm Mechanic Name Role Phone Unavailable Primary Care Provider Unavailabl e Encounter Details Date Type Department Care Team (Late st Contact Info) Description 10/18/2023 Lab Requisition [facility] - DermPath Lab [address] [facility] [place] [phone] Yessi Del Cid MD [address] [facility] [address] [place] [address] Social History Tobacco Use Types Packs/Day Years [...] Diagnosis Comments DERMATOPATHOLOGY Routine 10/18/2023 2:33 PM HANDBAG FINISHER documented in this encounter Results * DERMATOPATHOLOGY (10/18/2023 2:33 PM HANDBAG FINISHER) Case Report Dermatopathology Report Case: [id number] Authorizing Provider: Yessi Del Cid MD Collected: 10/18/2023 02:33 PM Ordering Location: [facility] DermPath Lab Received: 10/19/2023 03:53 PM Pathologist: Negin Oliva MD Specimen: Skin, left flank 3 2:18 PM HANDBAG FINISHER DERMATOPATHOLOGY LABORATORY Final Diagnosis Specimen A. 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 The specimen consists of a shave biopsy measuring 6x5x1 mm. Jar 0. 3 2:18 PM [facility] DERMATOPATHOLOGY LABORATORY Microscopic Description Specimen A. SKIN, left flank: This is a compound nevus. There is a lentiginous proliferation of melanocytes along the dermal-epidermal junction, highlighted by MART-1/Melan-A immunohistochemical staining. There is underlying fibroplasia of the papillary dermis. The intradermal component is bland in appearance and matures with depth. Original and deeper sections were reviewed. (Compound Amol's Nevus) 3 2:18 PM [facility] DERMATOPATHOLOGY LABORATORY Disclaimer An external and internal positive and negative controls are appropriate for the histochemical, immunohistochemical and immunofluorescence stain(s) in this case (if any), except where stated explicitly. The performance characteristics of the stain(s) cited in this report were developed and its performance characteristic determined by the Dermatopathology Laboratory at [facility], directed by Dr. Cami Coley. These tests need not be, and therefore are not, approved by the [place] Food and Drug Administration. The tests are used for clinical purposes. Billing Codes Specimen Charges Stain Charges 80607 1 26941 1 3 2:18 PM [facility] DERMATOPATHOLOGY LABORATORY Embedded Images 3 2:18 PM [facility] DERMATOPATHOLOGY LABORATORY Pathology/Cytolo gy TISSUE SPECIMEN FROM SKIN / Unknown 10/18/2023 2:33 PM HANDBAG FINISHER 10/19/2023 3:53 PM HANDBAG FINISHER us Yessi Del Cid MD LAB - PATHOLOGY/CYTOLOGY ORD ERABLES Final Result DERMATOPATHOLOGY LABORATORY [facility] - Department of Dermatology [address], [address] Floor [address] [phone] documented in this encounter Visit Diagnoses Not on filedocumented in this encounter
--- OUTSIDE RECORDS SUMMARY | 2025-06-26 06:05 | XMS_ITS | Encounter Summary ---
Author Organization [facility] Address [address] [place] [address] Care Team Providers Care Umbrella Cutter Name Role Phone Troy Funes Jean MORENO Primary Care Provider + Encounter Details Date Type Department Care Team (Late st Contact Info) Description 03/29/2023 [employer] [place] Message Enc [facility] Medical Group Family & Internal Medicine [facility] [address] [place] [address] Millicent Garner APNP [address] [place] [address] Cancel appointment no longer need [...] on file Legal Sex Female 2:45 PM TRAVEL COTA Gender Identity Not on file Sexual Orientation [...] Total Score: 1 10/15/20 22 12:59 PM TRAVEL COTA documented as of this encounter Care Teams Umbrella Cutter Relationship Specialty Start Date End Date Troy Funes DO [address] [place] [address] PCP - General FAMILY PRACTICE 01/30/20 documented as of this encounter
--- OUTSIDE RECORDS SUMMARY | 2025-06-26 06:05 | XMS_ITS | Clinical Summary ---
Author Organization Lisa Cook [facility] [address] [place] [address] [address] [address] Care Team Providers Care Hogshead Cooper Name Role Phone Unavailable Primary Care Provider [...] times daily. 35 Tablet 10/14/2022 6:53 PM INTERNAL SALESPERSON 10/14/2022 Active amoxicillin-cla vulanate (AUGMENTIN) 875-125 mg tablet Take 1 tablet (875 mg total) by mouth 2 (two) times daily for 10 days. 20 Tablet 10/15/2022 5:21 PM INTERNAL SALESPERSON 10/15/2022 Active vitamin-iron fumarate-folic acid 27 mg-0.8 mg Tablet Take 1 Capsule by mouth daily. Active ascorbic acid, vitamin C, (VITAMIN C) 1,000 mg Tablet Take 1,000 mg by mouth daily. Active fluticasone propionate (FLONASE) 50 mcg/spray [place], Suspension nasal inhaler 09/29/2021 Activ e amoxicillin-cla vulanate (AUGMENTIN) 875-125 mg tablet Take 1 tablet by mouth 2 (two) times a day for 7 days 14 Tablet 03/27/2023 9:50 AM CDT 03/27/2023 Active meclizine (ANTIVERT) 25 mg tablet Take 1 Tablet (25 mg) by mouth 3 times daily as needed. 30 Tablet 11/01/2023 8:45 AM INTERNAL SALESPERSON 10/27/2023 Active HYDROcodone-troy taminophen (NORCO) 5-325 mg tablet Take 1-2 Tablets by mouth every 6 hours as needed. Max Daily Amount: 8 Tablets 10 Tablet 11/03/2023 2:55 PM INTERNAL SALESPERSON 11/03/2023 Active ibuprofen (MOTRIN) 600 mg tablet Take 1 Tablet (600 mg) by mouth every 6 hours as needed. 20 Tablet 11/03/2023 2:55 PM INTERNAL SALESPERSON 11/03/2023 Active chlorhexidine gluconate 0.12 % Mouthwash SWISH GENTLY 30 SECONDS WITH 20 ML EVERY 8 HOURS 473 mL 11/08/2023 3:02 PM INTERNAL SALESPERSON 11/08/2023 Active cyclobenzaprine (FLEXERIL) 10 mg tablet Take 1 Tablet (10 mg) by mouth 3 times daily as needed for muscle spasm. 20 Tablet 06/05/2024 5:46 PM CDT 06/05/2024 Active amoxicillin (AMOXIL) 500 mg capsule Take 1 Capsule (500 mg) by mouth every 12 hours until all doses are taken. 20 Capsule 10/19/2024 11:14 AM INTERNAL SALESPERSON 10/19/2024 Active azithromycin (Zithromax Z-Myron) 250 mg tablet Take 2 tablets by mouth on day 1, then take 1 tablet by mouth daily for days 2-5 6 Tablet 12/26/2024 6:11 PM INTERNAL SALESPERSON 12/26/2024 Active Active Problems No known active problems Encounters Date Type Department Care Team Description 06/13/2025 External Device Data STL ABSTRACTION Provider, Abstract 06/13/2025 External Device Data STL ABSTRACTION Provider, Abstract 05/22/2025 External Device Data STL ABSTRACTION Provider, Abstract 05/16/2025 External Device Data STL ABSTRACTION Provider, Abstract 04/24/2025 External Device Data STL ABSTRACTION Provider, [...] Comments Blood Pressure 106/70 10/17/2022 8:29 AM INTERNAL SALESPERSON Pulse 85 10/17/2022 8:29 AM INTERNAL SALESPERSON Temperature 36.6 C (97.8 F) 10/17/2022 8:29 AM INTERNAL SALESPERSON Respiratory Rate 14 10/17/2022 8:29 AM INTERNAL SALESPERSON Oxygen Saturation 99% 10/17/2022 8:29 AM INTERNAL SALESPERSON Inhaled Oxygen Concentration - - Weight 62.1 kg (136 lb 12.8 oz) 10/17/2022 8:29 AM INTERNAL SALESPERSON Height 160 cm (5' 3) 10/17/2022 8:29 AM INTERNAL SALESPERSON Body Mass Index 24.23 10/17/2022 8:29 AM INTERNAL SALESPERSON Plan of Treatment Health Maintenance Due Date Last Done Comments HPV/Cotest (21-29) 2012 CERVICAL CANCER SCREENING 2021 HPV/Cotest (30-65) 2021 PAP SMEAR 2021 INFLUENZA VACCINE (#1) 2025 9, 08/26/2016, 10/10/2015 DTAP/TDAP/TD VACCINES (10 - Td or Tdap) 01/29/2030 01/30/2020, 05/05/2018, 03/18/2015, Additional history exists HEPATITIS B VACCINES Completed 03/17/2001, 12/09/2000, 10/07/2000 HPV VACCINES Completed 10/02/2009, 02/2009, 02/27/2009 Insurance Member Subscriber Plan / Payer (Ef fective 2014-Present) Name:Joanne Leon Relation to Subscriber:Self Name:Joanne Leon Payer ID:[id number] (NAIC) Type:HMO Address: [place] [id number] RX [employer] PLANS (INTERNAL) [facility] [employer] [facility] [employer]
--- OUTSIDE RECORDS SUMMARY | 2025-06-26 06:05 | XMS_ITS | Clinical Summary ---
Author Organization [facility] Address [address] [place] [address] Care Team Providers Care Tumbling And Rolling Supervisor Name Role Phone Unavailable Primary Care Provider Unavailabl e Source Comments [facility],non-owned Affiliates and Associated Physician Practices is amultiple site organization consisting of ambulatory clinics and hospital sitesin [place], [place], [place] and [place]. This disclosure is being madepursuant to the Care Everywhere program and may not contain all information available regarding this patient. Last updated 18.[facility] Social History Tobacco Use Types Packs/Day [...] 19+ 3-dose series) 2010 PAP SMEAR 2012 HPV VACCINE (1 - 3-dose SCDM series) 2018 COVID-19 VACCINE ( - 2023-2 5 season) 2024 DEPRESSION SCREENING 11/29/2024 INFLUENZA VACCINE (#1) 2025 ZOSTER VACCINE (1 of 2) 2041 [...] patient's age to complete this topic Insurance [facility]
--- OUTSIDE RECORDS SUMMARY | 2025-06-26 06:05 | XMS_ITS | Clinical Summary ---
Author Organization [facility] [address] [facility] Address [address] [place] [address] Care Team Providers Care Assistant Name Role Phone No, Physician Primary Care Provider [phone] Allergies Active Allergy Reactions Criticality Noted Date [...] on file Legal Sex Female 9:31 AM FUNERAL DIRECTOR/EMBALMER Gender Identity Not on file Sexual Orientation [...] 2-dose series) 08/20/2015 07/23/2015 Influenza Vaccine (#1) 2025 9, 10/06/2018, 10/28/2017, Additional history exists DTaP/Tdap/Td Vaccine (10 - Td or Tdap) 01/29/2030 01/30/2020, 05/05/2018, 03/18/2015, Additional history exists Hepatitis B Screening Completed 03/17/2001 , 12/09/2000, 10/07/2000 HPV Vaccines Completed 06/09/2007, 06/2007, 12/09/2006 Pneumococcal vaccine <65 Aged Out No longer eligible based on patient's age to complete this topic Insurance [facility] Care Teams Assistant Relationship Specialty Start Date End Date No, Physician PCP - General 12/04/19
--- OUTSIDE RECORDS SUMMARY | 2025-06-26 06:05 | XMS_ITS | Encounter Summary ---
Author Organization [facility] Address [address] [place] [address] Care Team Providers Care Senior Instructional Designer Name Role Phone Troy Funes DO Primary Care Provider + Encounter Details Date Type Department Care Team (Late st Contact Info) Description 06/28/2023 MyChart Message Enc [facility] Medical Group Family & Internal Medicine [facility] [address] [place] [address] Troy Funes DO [address] [place] [address] [place] [facility] Social History Tobacco Use Types Packs/Day [...] on file Legal Sex Female 2:45 PM INSURANCE OFFICE SUPERVISOR Gender Identity Not on file Sexual [...] Total Score: 1 10/15/20 22 12:59 PM INSURANCE OFFICE SUPERVISOR documented as of this encounter Care Teams Senior Instructional Designer Relationship Specialty Start Date End Date Troy Funes DO [address] [place] [address] PCP - General FAMILY PRACTICE 01/30/20 documented as of this encounter
--- OUTSIDE RECORDS SUMMARY | 2025-06-26 06:05 | XMS_ITS | Encounter Summary ---
Author Organization [facility] Address [address] [place] [address] Care Team Providers Care Supply Crib Attendant Name Role Phone Troy Funes DO Primary Care Provider + Reason for Visit * Reason Onset Date Comments Question 11/08/2024 Encounter Details Date Type Department Care Team (Late st Contact Info) Description 11/08/2024 YouGift Message Enc [facility] Medical Group Family & Internal Medicine [facility] [address] [place] [phone] Troy Funes DO [address] [place] [address] Strep throat Social History Tobacco [...] on file Legal Sex Female 2:45 PM BEAMSTER Gender Identity Not on file Sexual Orientation Not on file 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 STER * Kim Ghosh - 11/09/2024 1:26 PM CST Patient is unsure of the name of the antibiotics she was on, she thinks it was something friendly that started with an A that was 2 times daily. Patient is still . STER * Troy Funes DO - 11/09/2024 9:39 AM CST Please clarify what abx she took, for how long, and if she is still . I do not see it in PDMP. STER documented in this encounter Plan of Treatment Not on file documented as of this encounter Visit Diagnoses Diagnosis Strep throat- Primary Streptococcal sore throat documented in this encounter Additional Health Concerns Assessment Noted Time PHQ-9 Depression Total Score: 1 10/15/20 22 12:59 PM BEAMSTER documented as of this encounter Care Teams Supply Crib Attendant Relationship Specialty Start Date End Date Troy Funes DO [address] [place] [address] PCP - General FAMILY PRACTICE 01/30/20 documented as of this encounter
--- OUTSIDE RECORDS SUMMARY | 2025-06-26 06:05 | XMS_ITS | Encounter Summary ---
Author Organization [facility] Address [address] [place] [address] Care Team Providers Care Pump House Technician Name Role Phone Troy Funes DO Primary Care Provider + Encounter Details Date Type Department Care Team (Late st Contact Info) Description 10/26/2023 ArtSquaret Message Enc [facility] Medical Group Family & Internal Medicine [facility] [address] [place] [address] Troy Funes DO [address] [place] [address] Dizziness and motion sickness Social [...] file Legal Sex Female 2:45 PM IT LEAD Gender Identity Not on file Sexual [...] Score: 1 10/15/20 22 12:59 PM IT LEAD documented as of this encounter Care Teams Pump House Technician Relationship Specialty Start Date End Date Troy Funes DO [facility] [place] [address] PCP - General FAMILY PRACTICE 01/30/20 documented as of this encounter
--- OUTSIDE RECORDS SUMMARY | 2025-06-26 06:05 | XMS_ITS | Referral Summary ---
Author Organization [facility] [address] [facility] lt Address [address] [place] [address] Care Team Providers Care Wind Turbine Mechanical Engineer Name Role Phone No, Physician Primary Care Provider Allergies Active Allergy Reactions Criticality Noted Date [...] on file Legal Sex Female 9:31 AM DINING ROOM HOST Gender Identity Not on file Sexual Orientation [...] of Treatment Not on file Insurance R [facility] HMO/PPO Address: [address] [phone] Care Teams Wind Turbine Mechanical Engineer Relationship Specialty Start Date End Date No, Physician PCP - General 12/04/19
--- OUTSIDE RECORDS SUMMARY | 2025-06-26 06:05 | XMS_ITS | Clinical Summary ---
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 Not on file Not on file Last Filed Vital Signs Vital Sign Reading Time Taken Comments Blood Pressure 114/64 10/16/2024 9:54 AM MEDICAL ASSISTANT SUPERVISOR Pulse 86 10/16/2024 9:54 AM MEDICAL ASSISTANT SUPERVISOR Temperature 36.3 C (97.3 F) 10/16/2024 9:54 AM MEDICAL ASSISTANT SUPERVISOR Respiratory Rate 16 10/16/2024 9:54 AM MEDICAL ASSISTANT SUPERVISOR Oxygen Saturation 98% 10/16/2024 9:54 AM MEDICAL ASSISTANT SUPERVISOR Inhaled Oxygen Concentration - - Weight 67.5 kg (148 lb 12.8 oz) 10/16/2024 9:54 AM MEDICAL ASSISTANT SUPERVISOR Height 160 cm (5' 3) 10/16/2024 9:54 AM MEDICAL ASSISTANT SUPERVISOR Body Mass Index 26.36 10/16/2024 9:54 AM MEDICAL ASSISTANT SUPERVISOR Plan of Treatment Health Maintenance Due Date Last Done Comments Cervical Cancer Screening Pap Smear (Age 30 to 64) Every 3 Years 1991 Annual Physical 01/29/2021 01/30/2020 Cervical Cancer Screening Pap with HPV Testing (Age 30 to 64) Every 5 Years 2021 Cervical Cancer Screening with HPV 2021 PHQ-2 (Physician [place]) 11/29/2024 10/16/2024 COVID-19 Vaccine ( season) 2025 [...] Recently Relevant to [place] [address] Care Teams Secondary Education Professor Relationship Specialty Start Date End Date Troy Funes DO [address] [place] [address] PCP - General FAMILY PRACTICE 01/30/20
--- NOTE | 2025-06-26 06:23 | LDADM ---
This patient, Joanne Leon, was admitted to Labor/Delivery/Recovery 107 on 06/26/25 at 05:59. Plans for labor, pain management and were discussed with patient. Patient/family oriented to hospital policies and general routines including ID bracelet, bed and alarms, visiting hours, pain management, procedures, bathroom and other care routines, personal items, smoking policy, room service/diet and guest tray routines, infant security routines, and visiting hours. Patient/Family are encouraged to report perceived risks to care and to ask questions if they do not understand what they are told or what they should do. See OBIX for further documentation.
[2025-06-26 07:04] LABS: Hematocrit 36.2 % (37.0-47.0); Hemoglobin 12.5 g/dL (12.0-15.0); Immature Granulocyte Percent A 0.9 % (0-0.5); Lymphocytes Absolute Auto 1.49 K/mm3 (0.9-3.2); Mean Corpuscular HGB Conc 34.5 g/dl (32-36); Mean Corpuscular Hemoglobin 32.5 pg (26-34); Mean Corpuscular Volume 94.0 fl (80-100); Nucleated Red Blood Cells Absolute Auto 0.000 K/mm3 (0.0-0.012); Nucleated Red Blood Cells Perc 0.0 % (0.0-0.2); Platelet Count Result 157 k/mm3 (150-375); Red Blood Count 3.85 M/mm3 (4.2-5.4); White Blood Count 8.0 K/mm3 (4.5-10.0)
[2025-06-26] MEDS: LACTATED RINGERS 1,000 ML 125 ML IV CONT ×2 (07:49→16:30)
[2025-06-26] MEDS: OXYTOCIN 30 UNITS/NS 500 ML 30 UNITS/500 ML BAG IV CONT (07:50)
--- NOTE | 2025-06-26 08:23 | PM.IMHP ---
H&P: HPI History of Present Illness Date/Time: 06/26/25 08:23 Chief Complaint: Here for induction of labor Narrative: 35 y/o at 40 1/7 weeks here for induction of labor. History of VAVD of 8#2oz baby, subsequent of 9# baby. Rubella nonimmune. GBS neg. Review of Systems Review of Systems: All systems reviewed & are unremarkable except as noted in HPI and below PMFSH Past Medical History Medical History Strep throat Surgical History Surgical History History of tonsillectomy Status post wisdom tooth extraction Family History Family History Mother Hypertension Social History Social History Smoking status: Never smoker Second hand tobacco smoke exposure: No Substance use: never Lack of Transportation: No Lack of Food: Never True Current Housing: I Have Housing Concerned About Future Housing: No Difficulty Paying Gas/Electric Bills: No Difficulty Paying for Meds: No Currently Unemployed: No Education: Associate Degree Difficulty w/ Childcare or Family Care: No Gender identity (if verbalized by the patient): Female Spiritual care concerns: No Meds Home Medications and Allergies Home Medications ?Medication ?Instructions ?Recorded ?Confirmed ?Type docosahexaenoic acid 200 mg mg PO 06/04/25 06/19/25 History capsule ( DHA) Allergies Allergy/AdvReac Type Severity Reaction Status Date / Time Sulfa (Sulfonamide Allergy Mild Rash Verified 06/19/25 09:02 Antibiotics) Vital Signs Vital Signs - 24 hr 06/26/25 05:59 06/26/25 06:18 06/26/25 06:31 Pulse Rate 90 96 Blood Pressure 116/65 104/66 Oxygen Delivery Room Air Exam Const: Orientation/consciousness: patient oriented x3 Other: Well-developed, well-nourished female in no acute distress. Neck: Thyroid: thyroid normal Lymphatic: no lymphadenopathy noted (in neck, axilla or inguinal nodes) Resp: Effort & Inspection: normal respiratory effort Auscultation: clear to auscultation bilaterally Cardio: Rate: regular rate Rhythm: regular rhythm Heart sounds: S1 normal heart sound present and S2 normal heart sound present GI: Other: ABD: Soft, nontender, nondistended, gravid. NST 150 reactive. TOCO: contractions every 3-4 min. No guarding or rebound tenderness. No hepatosplenomegaly. : General: Yes no CVA tenderness Other: Cervix 2-3 / 50 / -2. AROM with thinly meconium-stained fluid. IUPC placed. Back/Spine/Pelvis: Back: no CVA tenderness Skin: General skin exam: normal color and no rashes or lesions noted Neuro: General: patient oriented x3 Extrem: Other: Extremities: nontender with no edema Psych: Mental Status: mental status grossly normal Affect: normal affect H&P: Results Labs Labs: Short CBC 06/26/25 Range/Units 06:33 WBC 8.0 (4.5-10.0) K/mm3 Hgb 12.5 (12.0-15.0) g/dL Hct 36.2 L (37.0-47.0) % Plt Count 157 (150-375) k/mm3 Assessment and Plan Assessment and plan (1) Term : Code(s): Z34.90 - Encounter for supervision of normal , unspecified, unspecified trimester Status: Acute Assessment and Plan: A: IUP at 40 1/7 weeks here for scheduled induction of labor. P: Oxytocin. Anticipate . Peds aware of thin meconium.
[2025-06-26 10:22] LABS: Syphilis IgG/IgM Antibody Non-Reactive (Nonreactive)
--- NOTE | 2025-06-26 12:44 | P.PNAN_ITS ---
Anes - Initial Pre Proc Eval Date/Time: 06/26/25 12:44 Surgeon: Leonardo Jensen MD Pre Op Diagnosis: IOL Patient Data Age: 35 Gender: F Height: Weight: Last Vital Signs Pulse 110 H 06/26/25 12:42 BP 109/74 06/26/25 12:42 Pulse Ox 99 06/26/25 12:43 O2 Del Method Room Air 06/26/25 05:59 Allergies Allergy/AdvReac Type Severity Reaction Status Date / Time Sulfa (Sulfonamide Allergy Mild Rash Verified 06/19/25 09:02 Antibiotics) Home Medications ?Medication ?Instructions ?Recorded ?Confirmed ?Type docosahexaenoic acid 200 mg mg PO 06/04/25 06/19/25 History capsule ( DHA) Laboratory Tests 06/26/25 06:33 WBC 8.0 K/mm3 (4.5-10.0) RBC 3.85 L M/mm3 (4.2-5.4) Hgb 12.5 g/dL (12.0-15.0) Hct 36.2 L % (37.0-47.0) MCV 94.0 fl (80-100) MCH 32.5 pg (26-34) MCHC 34.5 g/dl (32-36) RDW 13.1 % (11.5-14.5) Plt Count 157 k/mm3 (150-375) MPV 10.9 H fl (7.4-10.4) Immature Gran % (Auto) 0.9 H % (0-0.5) Neut % (Auto) 63.6 % (45.5-73.1) Lymph % (Auto) 18.5 % (18.3-44.2) [place] % (Auto) 14.4 H % (2.6-8.5) Eos % (Auto) 2.0 % (0-4.4) Baso % (Auto) 0.6 % (0.2-1.2) Lymph # (Auto) 1.49 K/mm3 (0.9-3.2) [place] # (Auto) 1.2 H K/mm3 (0.1-0.6) Eos # (Auto) 0.2 K/mm3 (0-0.3) Baso # (Auto) 0.1 K/mm3 (0.0-0.1) Abs Immat Gran (auto) 0.07 H K/mm3 (0.00-0.031) Absolute Neuts (auto) 5.1 K/mm3 (1.3-6.7) Absolute Nucleated RBC 0.000 K/mm3 (0.0-0.012) Nucleated RBC % 0.0 % (0.0-0.2) Syphilis IgG/IgM Ab Non-reactive (Nonreactive) Blood Type A Positive Antibody Screen Negative Patient hx anesthesia problems: none Family hx anesthesia problems: none Results Review: All pre-operative results and documents have been reviewed as part of the pre- operative evaluation. [facility] Past Medical History Medical History Strep throat Surgical History Surgical History History of tonsillectomy Status post wisdom tooth extraction Family History Family History Mother Hypertension Social History Social History Smoking status: Never smoker Second hand tobacco smoke exposure: No Substance use: never Lack of Transportation: No Lack of Food: Never True Current Housing: I Have Housing Concerned About Future Housing: No Difficulty Paying Gas/Electric Bills: No Difficulty Paying for Meds: No Currently Unemployed: No Education: Associate Degree Difficulty w/ Childcare or Family Care: No Gender identity (if verbalized by the patient): Female Spiritual care concerns: No Anes - Eval Final PreProcedure Day of Procedure 06/26/25 12:44 Patient weight: overweight Neurological: alert and oriented ASA classification: II Emergent: no Anesthetic plan: proceed Anesthesia type and monitoring: regional epidural and standard monitoring Results Review: All pre-operative results and documents have been reviewed as part of the pre- operative evaluation. Informed Consent: The patient's anesthetic plan and its attendant risks and benefits were discussed with the patient/family/POA. Questions were solicited and answers provided to the satisfaction of the patient/family/POA.
[2025-06-26] MEDS: OXYTOCIN 30 UNITS/NS 500 ML 30 UNITS/500 ML BAG 999 UNITS IV CONT (17:15)
--- NOTE | 2025-06-26 17:27 | PM.OBPRVD ---
OB - Vaginal Delivery Note Procedure Delivery date: 06/26/25 Induction method: Per Pitocin Protocol Delivery augmentation: Rupture of Membranes Delivery monitor: External FHT, External Uterine and Internal Uterine Route of delivery: Episiotomy description: None Laceration Description: Perineal - 1st Degree Delivery repair: vicryl (3-0) Specimen: Yes (cord blood) Quantitative Blood Loss (ml): 180 Anesthesia type: Epidural Disposition: PACU Complications: None Narrative: 35 y/o at 40 1/7 weeks gestation who presented to the hospital for induction of labor. Oxytocin was administered intravenously. Amniotomy was performed with return of thinly meconium-stained fluid. She received an epidural for pain control. Her labor progressed and her cervix dilated completely. She pushed with good effort and delivered the infant's head to the perineum. A loose nuchal cord was splinted and the body delivered. The cord was reduced, and the nose and mouth were bulb suctioned. After a delay, the cord was clamped and cut. The infant was handed off the field. Cord blood was collected. The placenta delivered spontaneously and was grossly normal in appearance. The usual 3 vessel cord was noted. A first degree midline perineal laceration was sustained. This was reapproximated using 3 0 Vicryl in a single figure of eight suture. Excellent hemostasis resulted as did excellent reapproximation of the normal anatomy. Needle and instrument counts were correct. The patient was taken to recovery room in stable condition. The went to the nursery in stable condition. I was present and scrubbed for the entire delivery. [place] Baby Date of : 06/26/25 Time of : 17:11 Gestational Age by Date: 40 Infant gender: Female Weight (pounds): 8 Weight (ounces): 9 presentation: vertex position: Left Occiput Anterior Placenta delivery description: Spontaneous Cord Vessel Description: 3 Vessels, Nuchal Cord and Delayed Cord Clamping score one minute: 8 score five minutes: 9
--- NOTE | 2025-06-26 17:31 | PM.OBDSVD ---
DS: Admitting Diagnosis Discharge Date 06/28/25 Admitting Diagnosis IUP at 40 1/7 weeks DS: Discharge Diagnosis Discharge Diagnosis (1) (normal spontaneous vaginal delivery): Code(s): O80 - Encounter for full-term uncomplicated delivery Status: Acute OB - DS: Summary OB Procedures : None OB Procedures Intrapartum: Spontaneous Vag Delivery OB Procedures: : None Peripartum Data Laceration Description: Perineal - 1st Degree Episiotomy description: None Time Spent with Patient Time attestation: Total time spent providing and/or coordinating discharge services: DS: Data Data Completed and Pending Labs on day of discharge: Labs from last 24 hours 06/26/25 06:33 WBC 8.0 RBC 3.85 L Hgb 12.5 Hct 36.2 L MCV 94.0 MCH 32.5 MCHC 34.5 RDW 13.1 Plt Count 157 MPV 10.9 H Immature Gran % (Auto) 0.9 H Neut % (Auto) 63.6 Lymph % (Auto) 18.5 [place] % (Auto) 14.4 H Eos % (Auto) 2.0 Baso % (Auto) 0.6 Lymph # (Auto) 1.49 [place] # (Auto) 1.2 H Eos # (Auto) 0.2 Baso # (Auto) 0.1 Abs Immat Gran (auto) 0.07 H Absolute Neuts (auto) 5.1 Absolute Nucleated RBC 0.000 Nucleated RBC % 0.0 Syphilis IgG/IgM Ab Non-reactive Blood Type A Positive Antibody Screen Negative Discharge Plan Discharge Attending physician on discharge: Leonardo Jensen Discharging Clinician: Leonardo Jensen Patient Disposition: Home Activity: pelvic rest Diet: regular Discharge Instructions: Call or return if temperature above 100.4? F, increased abdominal pain, increased vaginal bleeding or any new problems. Patient Language: Bulgarian Stand Alone Forms: General Discharge Information Follow-up/Referrals: Leonardo Jensen MD [Physician] - 6 Weeks Discharge Medications: New ibuprofen 600 mg tablet 600 mg PO Q6H PRN (Reason: cramps) Qty: 30 0RF Continued DHA 200 mg capsule PO Date of admission: 06/26/25 05:59 Primary Care Provider: PHYSICIAN,WELL CONTROL INSTRUCTOR Admitting Provider: Leonardo Jensen Attending physician on admission: Leonardo Jensen Condition: Stable
[2025-06-26] MEDS: OXYTOCIN 30 UNITS/NS 500 ML 30 UNITS/500 ML BAG 125 UNITS IV CONT (18:15)
[2025-06-26] MEDS: WITCH HAZEL 40 PADS 1 PAD TOPICAL (20:38)
[2025-06-26] MEDS: BENZOCAINE 20% AER SPR (*SP) 56 GM CAN 1 SPRAY TOPICAL (20:38)
--- NOTE | 2025-06-26 20:49 | OBPPTRN ---
Patient transferred to post room #286 via wheelchair. Support person present. Oriented to unit, room, information board, rooming in, admission packet and security measures. Patient verbalizes understanding.
[2025-06-26] MEDS: ACETAMINOPHEN 325 MG TABLET 650 MG PO (21:19)
[2025-06-26] MEDS: IBUPROFEN 600 MG TABLET PO (23:51)
[2025-06-27 00:05] VITALS: BP 106/59; PULSE 94; RESP 16; TEMP 36.5; O2SAT 98
[2025-06-27 04:40] VITALS: BP 97/60; PULSE 81; RESP 16; TEMP 36.4; O2SAT 99
[2025-06-27] MEDS: ACETAMINOPHEN 325 MG TABLET 650 MG PO ×3 (04:50→20:11)
[2025-06-27 05:13] LABS: Hematocrit 35.7 % (37.0-47.0); Hemoglobin 12.2 g/dL (12.0-15.0)
[2025-06-27 07:25] VITALS: BP 103/58; PULSE 86; RESP 16; TEMP 37.3; O2SAT 99
[2025-06-27] MEDS: IBUPROFEN 600 MG TABLET PO ×2 (07:54→17:04)
[2025-06-27] MEDS: MULTIVIT/MIN/PREN/FOL AC/IRON TABLET 1 TAB PO (07:54)
[2025-06-27] MEDS: DOCUSATE SODIUM 100 MG CAPSULE PO ×2 (07:54→17:04)
--- NOTE | 2025-06-27 10:32 | WPDANLDPN2 ---
Anes-Prog Note L&D Date/Time: 06/27/25 10:32 Comfortable throughout: labor and delivery Neuraxial method: epidural Epidural/Spinal procedure site: clean & non-tender Neuro status: Neuro function grossly intact. Cardiovascular status: normal Respiratory status: normal Airway patency: baseline Mental status: baseline Post-Op hydration status: normal Vital Signs: Last Vital Signs Temp 37.3 C 06/27/25 07:25 Pulse 86 06/27/25 07:25 Resp 16 06/27/25 07:25 BP 103/58 L 06/27/25 07:25 Pulse Ox 99 06/27/25 07:25 O2 Del Method Room Air 06/27/25 07:50 Pain score (VAS): 2 I/O: Intake & Output 06/26/25 06/27/25 06/27/25 23:59 07:59 15:59 Intake Total 1000 118 Output Total 75 Balance 925 118 Post-procedural complaints: none Patient feedback: Patient satisfied with anesthetic care.
[2025-06-27 11:30] VITALS: BP 102/65; PULSE 70; RESP 15; TEMP 36.6; O2SAT 98
[2025-06-27] MEDS: SIMETHICONE 80 MG TAB.CHEW PO (11:30)
--- NOTE | 2025-06-27 13:01 | P.PNOB_ITS ---
OB - PN: Subj Subjective Date/time seen: 06/27/25 13:01 Narrative: Pain OK. OB - PN: Obj Data Labs 06/27/25 04:52 Labs: Laboratory Results - last 24 hr 06/27/25 04:52 Hgb 12.2 Hct 35.7 L OB - PN A/P Plan day: 1 Comments: A: PPD#1, doing well. P: Routine care. Exam 2 Psych: Other: AVSS ABD soft, nontender, fundus firm EXT nontender
[2025-06-27 20:10] VITALS: BP 101/54; PULSE 77; RESP 16; TEMP 36.6; O2SAT 98
[2025-06-28] MEDS: IBUPROFEN 600 MG TABLET PO (02:32)
[2025-06-28 07:30] VITALS: BP 110/73; PULSE 86; RESP 16; TEMP 36.6; O2SAT 100
[2025-06-28] MEDS: DOCUSATE SODIUM 100 MG CAPSULE PO ×2 (08:06→17:21)
[2025-06-28] MEDS: MULTIVIT/MIN/PREN/FOL AC/IRON TABLET 1 TAB PO (08:06)
--- NOTE | 2025-06-28 08:50 | P.PNOB_ITS ---
OB - PN: Subj Subjective Date/time seen: 06/28/25 08:50 Narrative: Pain OK. Would like to go home. OB - PN: Obj Data Labs 06/27/25 04:52 OB - PN A/P Plan day: 2 Comments: A: PPD#2, doing well. P: Home to f/u 6 weeks. Exam 2 Psych: Other: AVSS ABD soft, nontender, fundus firm EXT nontender
[2025-06-28] MEDS: MEASLES,MUMPS,RUBELLA VACCINE 0.5 ML VIAL SUB-Q (09:31)
[2025-06-28] MEDS: ACETAMINOPHEN 325 MG TABLET 650 MG PO (09:35)
--- NOTE | 2025-06-28 10:03 | PC.NURSE ---
Consulted with mother concerning needs and she shared her ability to independently latch infant optimally without pain. Mother is feeding appropriately for growth of infant and understands stimulating to eat if needed. Infant has had appropriate feedings in the last 24 hours meets the outcomes for weight, output, blood sugar and jaundice at this time. Reinforced understanding of milk production, transition of milk, signs of adequate intake, transition of stool, prevention/relief of engorgement, plugged ducts, mastitis, responsive watching for feeding cues, the different methods of stimulating infant to breastfeed 1-3 hours after the start of the last feeding, community resources, and when to call a provider using the resource of the feeding sheet along with the mom and baby guide. Mother voiced understanding of the information shared, is confident to continue effectively her at home, when to call for assistance, denies any additional assistance or education at this time. Reported to the Primary RN. Per Primary RN, mother is being discharged to a No Care Bed today, is not being discharged home today.
[2025-06-30 11:21] VITALS: BP 107/72; PULSE 82; RESP 18; TEMP 36.9; O2SAT 100
== END 2025-06-28 17:35 | disposition home or self-care (01) | DRG 807 ==
LOC: ANHLDR 17:33 → ANHOB2 20:51
PROVIDERS: Admitting Provider Obstetrics & Gynecology; Visit Provider Obstetrics & Gynecology
DX: O77.0 Labor and delivery complicated by meconium in amniotic fluid (principal); Z37.0 Single live birth; Z3A.40 40 weeks gestation of pregnancy; O69.81X0 Labor and delivery complicated by cord around neck, without compression, not applicable or unspecified; O70.0 First degree perineal laceration during delivery
CPT/HCPCS: 36415; 85014; 85018; 85025; 86593; 86850; 86900; 86901; 90710; A9270; J2590; J2795; J7120

== ENCOUNTER 2025-08-07 11:20 | Outpatient (CLI) | payer OTHER, SELFPAY ==
[2025-08-07 13:08] LABS: Strep Group A RT-PCR DETECTED (Negative)
--- OUTSIDE RECORDS SUMMARY | 2025-08-07 13:11 | XMS_ITS | Clinical Summary ---
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 Not on file Not on file Last Filed Vital Signs Vital Sign Reading Time Taken Comments Blood Pressure 114/64 10/16/2024 9:54 AM IAP DISPLAYS ANALYST Pulse 86 10/16/2024 9:54 AM IAP DISPLAYS ANALYST Temperature 36.3 C (97.3 F) 10/16/2024 9:54 AM IAP DISPLAYS ANALYST Respiratory Rate 16 10/16/2024 9:54 AM IAP DISPLAYS ANALYST Oxygen Saturation 98% 10/16/2024 9:54 AM IAP DISPLAYS ANALYST Inhaled Oxygen Concentration - - Weight 67.5 kg (148 lb 12.8 oz) 10/16/2024 9:54 AM IAP DISPLAYS ANALYST Height 160 cm (5' 3) 10/16/2024 9:54 AM IAP DISPLAYS ANALYST Body Mass Index 26.36 10/16/2024 9:54 AM IAP DISPLAYS ANALYST Plan of Treatment Health Maintenance Due Date Last Done Comments Cervical Cancer Screening Pap Smear (Age 30 to 64) Every 3 Years 1991 Annual Physical 01/29/2021 01/30/2020 Cervical Cancer Screening Pap with HPV Testing (Age 30 to 64) Every 5 Years 2021 Cervical Cancer Screening with HPV 2021 PHQ-2 (Physician [place]) 11/29/2024 10/16/2024 COVID-19 Vaccine ( season) 2025 09/12/2021, 12/07/2020, 11/16/2020 DTaP, Tdap and Td Vaccines (10 - [...] to Health Maintenance Insurance [employer] Care Teams Deckhand Crab Boat Relationship Specialty Start Date End Date Troy Funes DO [address] [place] [id number] PCP - General FAMILY PRACTICE 01/30/20
--- OUTSIDE RECORDS SUMMARY | 2025-08-07 13:11 | XMS_ITS | Encounter Summary ---
Author Organization [facility] Address [address] [place] [address] Care Team Providers Care Supervisor Weaving Name Role Phone Troy Funes DO Primary Care Provider + Reason for Visit * Reason Onset Date Comments Question 11/08/2024 Encounter Details Date Type Department Care Team (Late st Contact Info) Description 11/08/2024 [employer] Message Enc [facility] Medical Group Family & Internal Medicine [facility] [address] [place] [phone] Troy Funes DO [address] [place] [address] Strep throat Social History Tobacco [...] on file Legal Sex Female 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 LE DISC JOCKEY * Kim Ghosh - 11/09/2024 1:26 PM CST Patient is unsure of the name of the antibiotics she was on, she thinks it was something friendly that started with an A that was 2 times daily. Patient is still . LE DISC JOCKEY * Troy Funes DO - 11/09/2024 9:39 AM CST Please clarify what abx she took, for how long, and if she is still . I do not see it in PDMP. LE DISC JOCKEY documented in this encounter Plan of Treatment Not on file documented as of this encounter Visit Diagnoses Diagnosis Strep throat- Primary Streptococcal sore throat documented in this encounter Additional Health Concerns Assessment Noted Time PHQ-9 Depression Total Score: 1 10/15/20 22 12:59 PM MOBILE DISC JOCKEY documented as of this encounter Care Teams Supervisor Weaving Relationship Specialty Start Date End Date Troy Funes DO [address] [place] [phone] PCP - General FAMILY PRACTICE 01/30/20 documented as of this encounter
--- OUTSIDE RECORDS SUMMARY | 2025-08-07 13:11 | XMS_ITS | Encounter Summary ---
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
--- OUTSIDE RECORDS SUMMARY | 2025-08-07 13:11 | XMS_ITS | Encounter Summary ---
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
--- OUTSIDE RECORDS SUMMARY | 2025-08-07 13:11 | XMS_ITS | Encounter Summary ---
Author Organization [facility] Address [address] [place] [address] Care Team Providers Care Complex Commercial Litigation Paralegal Name Role Phone Unavailable Primary Care Provider Unavailabl e Encounter Details Date Type Department Care Team (Late st Contact Info) Description 10/18/2023 Lab Requisition [facility] - DermPath Lab [address] [facility] [place] [phone] Yessi Del Cid MD [address] [place] [address] Social History Tobacco Use Types Packs/Day Years [...] Diagnosis Comments DERMATOPATHOLOGY Routine 10/18/2023 2:33 PM GRAPHICS PROGRAMMER documented in this encounter Results * DERMATOPATHOLOGY (10/18/2023 2:33 PM GRAPHICS PROGRAMMER) Case Report Dermatopathology Report Case: [id number] Authorizing Provider: Yessi Del Cid MD Collected: 10/18/2023 02:33 PM Ordering Location: [facility] DermPath Lab Received: 10/19/2023 03:53 PM Pathologist: Negin Oliva MD Specimen: Skin, left flank 3 2:18 PM GRAPHICS PROGRAMMER DERMATOPATHOLOGY LABORATORY Final Diagnosis Specimen A. SKIN, left flank: LENTIGINOUS MELANOCYTIC NEVUS, COMPOUND TYPE (D22.5) 3 2:18 PM GRAPHICS PROGRAMMER DERMATOPATHOLOGY LABORATORY at 1418 GRAPHICS PROGRAMMER Clinical History R/O Melanoma Nevus, Irregular Color, Brown Papule 3 2:18 PM [facility] DERMATOPATHOLOGY LABORATORY Gross Description Specimen A: Received is one formalin filled container labeled with the patient's name and designated left flank. The specimen consists of a shave biopsy measuring 6x5x1 mm. Jar 0. 3 2:18 PM [facility] DERMATOPATHOLOGY LABORATORY Microscopic Description Specimen A. SKIN, left flank: This is a compound nevus. There is a lentiginous proliferation of melanocytes along the dermal-epidermal junction, highlighted by MART-1/Melan-A immunohistochemical staining. There is underlying fibroplasia of the papillary dermis. The intradermal component is bland in appearance and matures with depth. Original and deeper sections were reviewed. (Compound Amol's Nevus) 3 2:18 PM [facility] DERMATOPATHOLOGY LABORATORY Disclaimer An external and internal positive and negative controls are appropriate for the histochemical, immunohistochemical and immunofluorescence stain(s) in this case (if any), except where stated explicitly. The performance characteristics of the stain(s) cited in this report were developed and its performance characteristic determined by the Dermatopathology Laboratory at [facility], directed by Dr. Cami Coley. These tests need not be, and therefore are not, approved by the [place] Food and Drug Administration. The tests are used for clinical purposes. Billing Codes Specimen Charges Stain Charges 69439 1 20256 1 3 2:18 PM [facility] DERMATOPATHOLOGY LABORATORY Embedded Images 3 2:18 PM [facility] DERMATOPATHOLOGY LABORATORY Pathology/Cytolo gy TISSUE SPECIMEN FROM SKIN / Unknown 10/18/2023 2:33 PM GRAPHICS PROGRAMMER 10/19/2023 3:53 PM GRAPHICS PROGRAMMER us Yessi Del Cid MD LAB - PATHOLOGY/CYTOLOGY ORD ERABLES Final Result DERMATOPATHOLOGY LABORATORY [facility] - Department of Dermatology [address] [phone] documented in this encounter Visit Diagnoses Not on filedocumented in this encounter
--- OUTSIDE RECORDS SUMMARY | 2025-08-07 13:11 | XMS_ITS | Clinical Summary ---
Author Organization [facility] [address] [place] [address] [address] [address] Care Team Providers Care Pediatrics Physician Name Role Phone Unavailable Primary Care Provider [...] times daily. 35 Tablet 10/14/2022 6:53 PM DECORATING KILN OPERATOR 10/14/2022 Active amoxicillin-cla vulanate (AUGMENTIN) 875-125 mg tablet Take 1 tablet (875 mg total) by mouth 2 (two) times daily for 10 days. 20 Tablet 10/15/2022 5:21 PM DECORATING KILN OPERATOR 10/15/2022 Active vitamin-iron fumarate-folic acid 27 mg-0.8 mg Tablet Take 1 Capsule by mouth daily. Active ascorbic acid, vitamin C, (VITAMIN C) 1,000 mg Tablet Take 1,000 mg by mouth daily. Active fluticasone propionate (FLONASE) 50 mcg/spray [place], Suspension nasal inhaler 09/29/2021 Activ e amoxicillin-cla vulanate (AUGMENTIN) 875-125 mg tablet Take 1 tablet by mouth 2 (two) times a day for 7 days 14 Tablet 03/27/2023 9:50 AM CDT 03/27/2023 Active meclizine (ANTIVERT) 25 mg tablet Take 1 Tablet (25 mg) by mouth 3 times daily as needed. 30 Tablet 11/01/2023 8:45 AM DECORATING KILN OPERATOR 10/27/2023 Active HYDROcodone-troy taminophen (NORCO) 5-325 mg tablet Take 1-2 Tablets by mouth every 6 hours as needed. Max Daily Amount: 8 Tablets 10 Tablet 11/03/2023 2:55 PM DECORATING KILN OPERATOR 11/03/2023 Active ibuprofen (MOTRIN) 600 mg tablet Take 1 Tablet (600 mg) by mouth every 6 hours as needed. 20 Tablet 11/03/2023 2:55 PM DECORATING KILN OPERATOR 11/03/2023 Active chlorhexidine gluconate 0.12 % Mouthwash SWISH GENTLY 30 SECONDS WITH 20 ML EVERY 8 HOURS 473 mL 11/08/2023 3:02 PM DECORATING KILN OPERATOR 11/08/2023 Active cyclobenzaprine (FLEXERIL) 10 mg tablet Take 1 Tablet (10 mg) by mouth 3 times daily as needed for muscle spasm. 20 Tablet 06/05/2024 5:46 PM CDT 06/05/2024 Active amoxicillin (AMOXIL) 500 mg capsule Take 1 Capsule (500 mg) by mouth every 12 hours until all doses are taken. 20 Capsule 10/19/2024 11:14 AM DECORATING KILN OPERATOR 10/19/2024 Active azithromycin (Zithromax Z-Myron) 250 mg tablet Take 2 tablets by mouth on day 1, then take 1 tablet by mouth daily for days 2-5 6 Tablet 12/26/2024 6:11 PM DECORATING KILN OPERATOR 12/26/2024 Active ibuprofen (MOTRIN) 600 mg tablet Take 1 Tablet (600 mg) by mouth every 6 hours as needed for cramps 30 Tablet 06/28/2025 2:01 PM CDT 06/26/2025 Active triamcinolone acetonide (KENALOG) 0.1 % Ointment APPLY TO THE AFFECTED AREA(S) TWICE DAILY NEEDED FOR IRRITATION. 30 Gram 08/07/2025 Active Active Problems No known active problems Encounters Date Type Department Care Team Description 07/18/2025 External Device Data ST[facility] ABSTRACTION Provider, Abstract 07/17/2025 External Device Data [facility] ABSTRACTION Provider, Abstract 07/03/2025 External Device Data [facility] ABSTRACTION Provider, Abstract [...] Comments Blood Pressure 106/70 10/17/2022 8:29 AM DECORATING KILN OPERATOR Pulse 85 10/17/2022 8:29 AM DECORATING KILN OPERATOR Temperature 36.6 C (97.8 F) 10/17/2022 8:29 AM DECORATING KILN OPERATOR Respiratory Rate 14 10/17/2022 8:29 AM DECORATING KILN OPERATOR Oxygen Saturation 99% 10/17/2022 8:29 AM DECORATING KILN OPERATOR Inhaled Oxygen Concentration - - Weight 62.1 kg (136 lb 12.8 oz) 022 8:29 AM DECORATING KILN OPERATOR Height 160 cm (5' 3) 10/17/2022 8:29 AM DECORATING KILN OPERATOR Body Mass Index 24.23 10/17/2022 8:29 AM DECORATING KILN OPERATOR Plan of Treatment Health Maintenance Due Date Last Done Comments HPV/Cotest (21-29) 2012 CERVICAL CANCER SCREENING 2021 HPV/Cotest (30-65) 2021 PAP SMEAR 2021 INFLUENZA VACCINE (#1) 2025 9, 08/26/2016, 10/10/2015 DTAP/TDAP/TD VACCINES (10 - Td or Tdap) 01/29/2030 01/30/2020, 05/05/2018, 03/18/2015, Additional history exists HEPATITIS B VACCINES Completed 03/17/2001, 12/09/2000, 10/07/2000 HPV VACCINES Completed 10/02/2009, 02/2009, 02/27/2009 Insurance [facility] CHOICE [id number] RX [employer] (INTERNAL) [facility] RX [employer] [facility] [employer]
--- OUTSIDE RECORDS SUMMARY | 2025-08-07 13:11 | XMS_ITS | Clinical Summary ---
Author Organization [facility] Address [address] [place] [address] Care Team Providers Care Serials Librarian Name Role Phone Unavailable Primary Care Provider Unavailabl e Source Comments [facility],non-owned Affiliates and Associated Physician Practices is amultiple site organization consisting of ambulatory clinics and hospital sitesin [place], [place], [place] and [place]. This disclosure is being madepursuant to the Care Everywhere program and may not contain all information available regarding this patient. Last updated 18.[facility] Social History Tobacco Use Types Packs/Day Years [...] VACCINE (1 - 3-dose SCDM series) 2018 DEPRESSION SCREENING 11/29/2024 COVID-19 VACCINE ( - 2023-2 5 season) 2025 INFLUENZA VACCINE (#1) 2025 ZOSTER VACCINE (1 [...] patient's age to complete this topic Insurance [employer]
--- OUTSIDE RECORDS SUMMARY | 2025-08-07 13:11 | XMS_ITS | Encounter Summary ---
Author Organization [facility] Address [address] [place] [address] Care Team Providers Care Electrician Radio Name Role Phone Troy Funes DO Primary Care Provider + Reason for Visit * Reason Onset Date Comments Question 02/15/2025 Encounter Details Date Type Department Care Team (Late st Contact Info) Description 02/15/2025 Linquet Message Enc [facility] Family & Internal Medicine [facility] [address] [place] [address] Troy Funes DO [address] [place] [address] Strep throat Social History Tobacco [...] on file 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
--- OUTSIDE RECORDS SUMMARY | 2025-08-07 13:11 | XMS_ITS | Encounter Summary ---
Author Organization [facility] Address [address] [place] [address] Care Team Providers Care Deputy Commonwealth'S Attorney Name Role Phone Troy Funes Jean MORENO Primary Care Provider + Encounter Details Date Type Department Care Team (Late st Contact Info) Description 03/29/2023 BriefMet Message Enc [facility] Family & Internal Medicine [facility] [address] [place] [address] Millicent Garner APNP [address] [place] [address] Cancel appointment no longer need [...] on file Legal Sex Female 2:45 PM LUMPIA WRAPPER MAKER Gender Identity Not on file Sexual [...] Total Score: 1 10/15/20 22 12:59 PM LUMPIA WRAPPER MAKER documented as of this encounter Care Teams Deputy Commonwealth'S Attorney Relationship Specialty Start Date End Date Troy Funes DO [address] [place] [address] PCP - General FAMILY PRACTICE 01/30/20 documented as of this encounter
--- OUTSIDE RECORDS SUMMARY | 2025-08-07 13:11 | XMS_ITS | Clinical Summary ---
Author Organization [facility] Address [address] [place] [address] Care Team Providers Care Manager Gift Name Role Phone No, Physician Primary Care Provider [phone] Allergies Active Allergy Reactions Criticality Noted Date [...] on file Legal Sex Female 9:31 AM FEED MANAGEMENT ADVISOR Gender Identity Not on file Sexual Orientation [...] patient's age to complete this topic Insurance [facility] Care Teams Manager Gift Relationship Specialty Start Date End Date No, Physician PCP - General 12/04/19
== END 2025-08-07 11:21 | disposition home or self-care (01) ==
LOC: ANHGOSHLAB 11:21
PROVIDERS: Visit Provider Obstetrics & Gynecology
DX: J02.9 Acute pharyngitis, unspecified (principal)
CPT/HCPCS: 87651

== ENCOUNTER 2025-10-31 09:45 | Outpatient (CLI) | payer OTHER, SELFPAY ==
--- OUTSIDE RECORDS SUMMARY | 2025-10-31 10:46 | XMS_ITS | Clinical Summary ---
Author Organization [facility] Address [address] [place] [address] Care Team Providers Care Bailer Tenders Supervisor Name Role Phone Unavailable Primary Care Provider Unavailabl e Source Comments [facility],non-owned Affiliates and Associated Physician Practices is amultiple site organization consisting of ambulatory clinics and hospital sitesin [place], [place], [place] and [place]. This disclosure is being madepursuant to the Care Everywhere program and may not contain all information available regarding this patient. Last updated 18.[facility] Social History Tobacco Use Types [...] of 3 - 19+ 3-dose series) 2010 Cervical Cancer Screening 2012 PAP SMEAR 2012 HPV VACCINE (1 - 3-dose SCDM series) 2018 PAP with HPV 2021 DEPRESSION SCREENING 11/29/2024 COVID-19 VACCINE ( - 2024-2 6 season) 2025 INFLUENZA VACCINE (#1) 2025 ZOSTER [...] patient's age to complete this topic Insurance [facility]
--- OUTSIDE RECORDS SUMMARY | 2025-10-31 10:46 | XMS_ITS | Clinical Summary ---
Author Organization [facility] [address] [place], [place] [address]Y [address] [address] Care Team Providers Care Activities Leader Name Role Phone Unavailable Primary Care Provider [...] times daily. 35 Tablet 10/14/2022 6:53 PM PROPERTY DEVELOPER 10/14/2022 Active amoxicillin-cla vulanate (AUGMENTIN) 875-125 mg tablet Take 1 tablet (875 mg total) by mouth 2 (two) times daily for 10 days. 20 Tablet 10/15/2022 5:21 PM PROPERTY DEVELOPER 10/15/2022 Active vitamin-iron fumarate-folic acid 27 mg-0.8 mg Tablet Take 1 Capsule by mouth daily. Active ascorbic acid, vitamin C, (VITAMIN C) 1,000 mg Tablet Take 1,000 mg by mouth daily. Active fluticasone propionate (FLONASE) 50 mcg/spray [place], Suspension nasal inhaler 09/29/2021 Activ e amoxicillin-cla vulanate (AUGMENTIN) 875-125 mg tablet Take 1 tablet by mouth 2 (two) times a day for 7 days 14 Tablet 03/27/2023 9:50 AM CDT 03/27/2023 Active meclizine (ANTIVERT) 25 mg tablet Take 1 Tablet (25 mg) by mouth 3 times daily as needed. 30 Tablet 11/01/2023 8:45 AM PROPERTY DEVELOPER 10/27/2023 Active HYDROcodone-troy taminophen (NORCO) 5-325 mg tablet Take 1-2 Tablets by mouth every 6 hours as needed. Max Daily Amount: 8 Tablets 10 Tablet 11/03/2023 2:55 PM PROPERTY DEVELOPER 11/03/2023 Active ibuprofen (MOTRIN) 600 mg tablet Take 1 Tablet (600 mg) by mouth every 6 hours as needed. 20 Tablet 11/03/2023 2:55 PM PROPERTY DEVELOPER 11/03/2023 Active chlorhexidine gluconate 0.12 % Mouthwash SWISH GENTLY 30 SECONDS WITH 20 ML EVERY 8 HOURS 473 mL 11/08/2023 3:02 PM PROPERTY DEVELOPER 11/08/2023 Active cyclobenzaprine (FLEXERIL) 10 mg tablet Take 1 Tablet (10 mg) by mouth 3 times daily as needed for muscle spasm. 20 Tablet 06/05/2024 5:46 PM CDT 06/05/2024 Active amoxicillin (AMOXIL) 500 mg capsule Take 1 Capsule (500 mg) by mouth every 12 hours until all doses are taken. 20 Capsule 10/19/2024 11:14 AM PROPERTY DEVELOPER 10/19/2024 Active azithromycin (Zithromax Z-Myron) 250 mg tablet Take 2 tablets by mouth on day 1, then take 1 tablet by mouth daily for days 2-5 6 Tablet 12/26/2024 6:11 PM PROPERTY DEVELOPER 12/26/2024 Active ibuprofen (MOTRIN) 600 mg tablet Take 1 Tablet (600 mg) by mouth every 6 hours as needed for cramps 30 Tablet 06/28/2025 2:01 PM CDT 06/26/2025 Active triamcinolone acetonide (KENALOG) 0.1 % Ointment APPLY TO THE AFFECTED AREA(S) TWICE DAILY NEEDED FOR IRRITATION. 30 Gram 08/07/2025 6:07 PM CDT 08/07/2025 Active amoxicillin (AMOXIL) 875 mg tablet Take one tablet (875 mg) orally twice a day for 10 days 20 Tablet 08/07/2025 6:07 PM CDT 08/07/2025 Active sertraline (ZOLOFT) 25 mg tablet Take 1/2 tablet by mouth for 1 week, then take 1 tablet by mouth daily 30 Tablet 2 09/13/2025 3:53 PM CDT 09/10/2025 Active clobetasoL (TEMOVATE) 0.05 % Solution Apply to scalp once daily as needed 50 mL 6 10/29/2025 Active clobetasoL (TEMOVATE) 0.05 % Ointment Apply to feet twice daily as needed. 60 Gram 6 10/29/2025 Active Active Problems No known active problems Encounters Date Type Department Care Team Description 09/18/2025 External Device Data STL ABSTRACTION Provider, Abstract [...] Comments Blood Pressure 106/70 10/17/2022 8:29 AM PROPERTY DEVELOPER Pulse 85 10/17/2022 8:29 AM PROPERTY DEVELOPER Temperature 36.6 C (97.8 F) 10/17/2022 8:29 AM PROPERTY DEVELOPER Respiratory Rate 14 10/17/2022 8:29 AM PROPERTY DEVELOPER Oxygen Saturation 99% 10/17/2022 8:29 AM PROPERTY DEVELOPER Inhaled Oxygen Concentration - - Weight 62.1 kg (136 lb 12.8 oz) 10/17/2022 8:29 AM PROPERTY DEVELOPER Height 160 cm (5' 3) 10/17/2022 8:29 AM PROPERTY DEVELOPER Body Mass Index 24.23 10/17/2022 8:29 AM PROPERTY DEVELOPER Plan of Treatment Health Maintenance Due Date [...] Plans RX [employer] [facility]
--- OUTSIDE RECORDS SUMMARY | 2025-10-31 10:46 | XMS_ITS | Clinical Summary ---
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
--- OUTSIDE RECORDS SUMMARY | 2025-10-31 10:46 | XMS_ITS | Encounter Summary ---
Author Organization [facility] Address [address] [place] [address] Care Team Providers Care Fence Post Cutter Name Role Phone Unavailable Primary Care Provider Unavailabl e Encounter Details Date Type Department Care Team (Late st Contact Info) Description 10/18/2023 Lab Requisition [facility] - DermPath Lab [address] [place] [id number] Yessi Del Cid MD [address] [facility] [address] [place] [address] Social History Tobacco Use Types Packs/Day Years [...] Diagnosis Comments DERMATOPATHOLOGY Routine 10/18/2023 2:33 PM CITY SECRETARY documented in this encounter Results * DERMATOPATHOLOGY (10/18/2023 2:33 PM CITY SECRETARY) Case Report Dermatopathology Report Case: [id number] Authorizing Provider: Yessi Del Cid MD Collected: 10/18/2023 02:33 PM Ordering Location: [facility] DermPath Lab Received: 10/19/2023 03:53 PM Pathologist: Negin Oliva MD Specimen: Skin, left flank 3 2:18 PM CITY SECRETARY DERMATOPATHOLOGY LABORATORY Final Diagnosis Specimen A. SKIN, left flank: LENTIGINOUS MELANOCYTIC NEVUS, COMPOUND TYPE (D22.5) 3 2:18 PM CITY SECRETARY DERMATOPATHOLOGY LABORATORY at 14[address] CITY SECRETARY Clinical History R/O Melanoma Nevus, Irregular Color, Brown Papule 3 2:18 PM [facility] DERMATOPATHOLOGY LABORATORY Gross Description Specimen A: Received is one formalin filled container labeled with the patient's name and designated left flank. The specimen consists of a shave biopsy measuring 6x5x1 mm. Jar 0. 3 2:18 PM [facility] DERMATOPATHOLOGY LABORATORY Microscopic Description Specimen A. SKIN, left flank: This is a compound nevus. There is a lentiginous proliferation of melanocytes along the dermal-epidermal junction, highlighted by MART-1/Melan-A immunohistochemical staining. There is underlying fibroplasia of the papillary dermis. The intradermal component is bland in appearance and matures with depth. Original and deeper sections were reviewed. (Compound Amol's Nevus) 3 2:18 PM [facility] DERMATOPATHOLOGY LABORATORY Disclaimer An external and internal positive and negative controls are appropriate for the histochemical, immunohistochemical and immunofluorescence stain(s) in this case (if any), except where stated explicitly. The performance characteristics of the stain(s) cited in this report were developed and its performance characteristic determined by the Dermatopathology Laboratory at [facility], directed by Dr. Cami Coley. These tests need not be, and therefore are not, approved by the [place] Food and Drug Administration. The tests are used for clinical purposes. Billing Codes Specimen Charges Stain Charges 38748 1 58207 1 3 2:18 PM [facility] DERMATOPATHOLOGY LABORATORY Embedded Images 3 2:18 PM [facility] DERMATOPATHOLOGY LABORATORY Pathology/Cytolo gy TISSUE SPECIMEN FROM SKIN / Unknown 10/18/2023 2:33 PM CITY SECRETARY 10/19/2023 3:53 PM CITY SECRETARY us Yessi Del Cid MD LAB - PATHOLOGY/CYTOLOGY ORD ERABLES Final Result DERMATOPATHOLOGY LABORATORY [facility] - Department of Dermatology [address] [phone] documented in this encounter Visit Diagnoses Not on filedocumented in this encounter
[2025-10-31 18:48] LABS: Creatine Kinase 138 U/L (30-135)
[2025-10-31 18:54] LABS: Hematocrit 43.0 % (37.0-47.0); Hemoglobin 14.3 g/dL (12.0-15.0); Immature Granulocyte Percent A 0.2 % (0-0.5); Lymphocytes Absolute Auto 1.80 K/mm3 (0.9-3.2); Mean Corpuscular HGB Conc 33.3 g/dl (32-36); Mean Corpuscular Hemoglobin 30.7 pg (26-34); Mean Corpuscular Volume 92.3 fl (80-100); Nucleated Red Blood Cells Absolute Auto 0.000 K/mm3 (0.0-0.012); Nucleated Red Blood Cells Perc 0.0 % (0.0-0.2); Platelet Count Result 215 k/mm3 (150-375); Red Blood Count 4.66 M/mm3 (4.2-5.4); White Blood Count 6.5 K/mm3 (4.5-10.0)
[2025-10-31 19:45] LABS: Vitamin B12 773.0 pg/mL (239-931)
[2025-11-01 16:08] LABS: ANA by IFA Rfx Titer/Pattern Negative (.)
== END 2025-10-31 09:46 | disposition home or self-care (01) ==
LOC: ANHGOSHLAB 09:46
PROVIDERS: Visit Provider Dermatology
DX: R21 Rash and other nonspecific skin eruption (principal); M12.9 Arthropathy, unspecified; L50.8 Other urticaria; L56.8 Other specified acute skin changes due to ultraviolet radiation
CPT/HCPCS: 36415; 82085; 82550; 82607; 85025; 86038; 86225; 86235

== ENCOUNTER 2025-11-06 10:01 | Outpatient (CLI) | payer OTHER, SELFPAY | END 2025-11-06 10:02 | disposition home or self-care (01) | LOC: ANHGOSHLAB 10:02 | PROVIDERS: Visit Provider Dermatology | DX: R21 Rash and other nonspecific skin eruption (principal); M12.9 Arthropathy, unspecified; L50.8 Other urticaria; L56.8 Other specified acute skin changes due to ultraviolet radiation | CPT/HCPCS: 82139 ==

== ENCOUNTER 2025-11-25 16:07 | Emergency (ER) | payer OTHER, SELFPAY ==
--- OUTSIDE RECORDS SUMMARY | 2025-11-25 16:09 | XMS_ITS | Encounter Summary ---
Author Organization [facility] Address [address] [place] [address] Care Team Providers Care Charging Machine Operator Name Role Phone Unavailable Primary Care Provider Unavailabl e Encounter Details Date Type Department Care Team (Late st Contact Info) Description 10/18/2023 Lab Requisition [facility] - DermPath Lab [address] [facility] [place] [phone] Yessi Del Cid MD [address] [facility] [address] [place] [address] Social History Tobacco Use Types Packs/Day Years [...] Diagnosis Comments DERMATOPATHOLOGY Routine 10/18/2023 2:33 PM RN OR LVN documented in this encounter Results * DERMATOPATHOLOGY (10/18/2023 2:33 PM RN OR LVN) Case Report Dermatopathology Report Case: [id number] Authorizing Provider: Yessi Del Cid MD Collected: 10/18/2023 02:33 PM Ordering Location: [facility] DermPath Lab Received: 10/19/2023 03:53 PM Pathologist: Negin Oliva MD Specimen: Skin, left flank 3 2:18 PM RN OR LVN DERMATOPATHOLOGY LABORATORY Final Diagnosis Specimen A. 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 The specimen consists of a shave biopsy measuring 6x5x1 mm. Jar 0. 3 2:18 PM [facility] DERMATOPATHOLOGY LABORATORY Microscopic Description Specimen A. SKIN, left flank: This is a compound nevus. There is a lentiginous proliferation of melanocytes along the dermal-epidermal junction, highlighted by MART-1/Melan-A immunohistochemical staining. There is underlying fibroplasia of the papillary dermis. The intradermal component is bland in appearance and matures with depth. Original and deeper sections were reviewed. (Compound Amol's Nevus) 3 2:18 PM [facility] DERMATOPATHOLOGY LABORATORY Disclaimer An external [...] purposes. Billing Codes Specimen Charges Stain Charges 39300 1 63179 1 3 2:18 PM [facility] DERMATOPATHOLOGY LABORATORY Embedded Images 3 2:18 PM [facility] DERMATOPATHOLOGY LABORATORY Pathology/Cytolo gy TISSUE SPECIMEN FROM SKIN / Unknown 10/18/2023 2:33 PM RN OR LVN 10/19/2023 3:53 PM RN OR LVN us Yessi Del Cid MD LAB - PATHOLOGY/CYTOLOGY ORD ERABLES Final Result DERMATOPATHOLOGY LABORATORY [facility] - Department of Dermatology [address] [phone] documented in this encounter Visit Diagnoses Not on filedocumented in this encounter
--- OUTSIDE RECORDS SUMMARY | 2025-11-25 16:09 | XMS_ITS | Clinical Summary ---
Author Organization [facility] Address [address] [place] [address] Care Team Providers Care Director Of Research And Development Name Role Phone Troy Funes DO Primary Care Provider + Allergies Active Allergy Reactions Criticality Noted Date Comments Sulfa Antibiotics Unknown,Rash Low 01/30/2020 Had reaction when younger Medications vitamin 28-0.6-0.4-340 MG capsule Take 1 capsule by mouth daily. Active fluticasone propionate (FLONASE) 50 MCG/ACT nasal spray 1 spray by Nasal route daily. Active cetirizine (ZYRTEC) 10 MG tablet Take 1 tablet (10 mg total) by mouth daily. 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 06/21/2023 Sore throat 06/16/2023 06/16/2023 Encounters Date Type Department Care Team Description 09/18/2025 Telephone [facility] Family & Internal Medicine [address] [phone] Troy Funes DO Record Request 09/17/2025 Results Follow-Up [facility] Family & Internal Medicine [address] [address] Troy Funes, DO COMPREHENSIVE METABOLIC PANEL, CBC W/DIFF AUTOMATED, TSH W/REFLEX 09/10/2025 1:40 PM CDT Office Visit [facility] Family & Internal Medicine [address] [phone] Troy Funes, DO Post (Depression) (Patient c/o feeling on edge. Patient returns to work soon, would like to discuss options to bring it down a notch. ) 09/10/2025 Scan HEALTH INFO SRVCS Scanned, Doc [facility] 09/10/2025 Travel from Last 3 Months Immunizations Immunization Administration Dates Next Due Afluria 36 MONTHS+ (Prefille d Syringe IIV4) 09/29/2019 Dtp (Generic) 07/07/1996, 3,1991,09/12,1991 HPV4 (Gardasil) 06/09/2007,02/03/2007,12/09/2006 Hepatitis B Pediatric 03/17/2001,12/09/2000,07/2000 Hib (Generic) 08/29/1992, 1,1991,07/07 Influenza (Generic) 09/19/2008,11/16/2006 Influenza Adult (Generic) 09/13/2024,,08/29/2021,10/06,10/28/2017 MMR (MMRII) 07/07/1996,08/29/1992 Meningococcal (Menomune) 12/09/2006 Polio Opv (Generic) 07/07/1996, 3,1991,09/12,1991 Tdap (Adacel) 01/30/2020 Tdap (Generic) 05/05/2018,03/18/2015,02/11/2007 Varicella (Varivax) 07/23/2015 Family History Medical History Relation Comments Heart Disease Maternal Grandmother Hypertension Maternal Grandmother Stroke Maternal Grandmother Relation Status Comments Maternal Grandmother Social History Tobacco Use Types Packs/Day Years Used Date Smoking Tobacco: Never Passive Smoke Exposure: Never Smokeless Tobacco: Never Tobacco Cessation:Counseling Given: No Alcohol Use Standard Drinks/Week Comments Never 0 (1 standard drink = 0.6 oz pur e alcohol) PHQ-2 Answer Date Recorded Patient Health Questionnaire-2 Score 0 09/10/2025 Comments No Sex and Gender Information Value Date Recorded Sex Assigned at Female 09/10/2025 1:54 PM CDT Legal Sex Female 2:45 PM COMMUNICATIONS STRATEGIST Gender Identity Female 09/10/2025 1:54 PM CDT Sexual Orientation Not on file 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 Not on file Not on file Last Filed Vital Signs Vital Sign Reading Time Taken Comments Blood Pressure 102/56 09/10/2025 1:49 PM CDT Pulse 80 09/10/2025 1:49 PM CDT Temperature 37.2 C (99 F) 09/10/2025 1:49 PM CDT Respiratory Rate 16 10/16/2024 9:54 AM COMMUNICATIONS STRATEGIST Oxygen Saturation 98% 09/10/2025 1:49 PM CDT Inhaled Oxygen Concentration - - Weight 74 kg (163 lb 1.6 oz) 09/10/2025 1:49 PM CDT Height 160 cm (5' 3) 09/10/2025 1:49 PM CDT Body Mass Index 28.89 09/10/2025 1:49 PM CDT Plan of Treatment Health Maintenance Due Date Last Done Comments Cervical Cancer Screening Pap Smear (Age 30 to 64) Every 3 Years 1991 Annual Physical 01/29/2021 01/30/2020 Influenza Adult (#1) 2025 09/13/2024, 09/14/2023, 08/29/2021, Additional history exists COVID-19 Vaccine ( season) 2026 09/12/2021, 12/07/2020, 11/16/2020 Postponed from 07/30/2025 (Patient Refused) Cervical Cancer Screening Pap with HPV Testing (Age 30 to 64) Every 5 Years 06/16/2029 06/16/2024 Cervical Cancer Screening with HPV 06/16/2029 DTaP, Tdap and Td Vaccines (10 - Td or Tdap) 01/29/2030 01/30/2020, 05/05/2018, 03/18/2015, Additional history exists Hepatitis B Vaccines Completed 03/17/2001, 12/09/2000, 10/07/2000 Meningococcal Vaccine Aged Out 12/09/2006 No jose de jesus marlon eligible based on patient's age to complete this topic HPV Vaccines Completed 06/09/2007, 06/2007, 12/09/2006 Hepatitis C Completed 03/19/2023 PHQ-2 (Physician [place]) Completed 09/10/2025 Hepatitis A Vaccines Aged Out No long er eligible based on patient's age to complete this topic Meningococcal B Vaccine Aged Out No l [...] Procedure Name Priority Date/Time Associated Diagnosis Comments TSH W/REFLEX Routine 09/10/2025 4:26 PM CDT Annual physical exam Screening for endocrine, metabolic and immunity disorder GENERAL HEALTH PANEL Routine 09/10/2025 4:26 PM CDT Annual physical exam Screening for endocrine, metabolic and immunity disorder COMPREHENSIVE METABOLIC PANEL Routine 09/10/2025 4:26 PM CDT Annual physical exam Screening for endocrine, metabolic and immunity disorder COLLECTION VENOUS BLOOD VENIPUNCTURE Routine 09/10/2025 2:13 PM CDT Annual physical exam Screening for endocrine, metabolic and immunity disorder OUTSIDE CYTOPATH CERV/VAG INTERPRET (PAP) 06/16/2024 HEPATITIS C ANTIBODY Routine 03/19/2023 12:00 AM CDT Screening for lipid disorders Screening for endocrine, metabolic and immunity disorder Annual physical exam Need for hepatitis C screening test from Last 3 Months or Most Recently Relevant to Health Maintenance Results * TSH W/REFLEX (09/10/2025 4:26 PM CDT) TSH 0.747 0.358 - 3.740 uIU/ML 09/11/2025 10:07 AM CDT [facility] 09/10/2025 4:26 PM CDT us Troy Funes DO LABORATORY Final Re sult -[facility] [place] [address] [facility] [place] [address], [place] [phone] * COMPREHENSIVE METABOLIC PANEL (09/10/2025 4:26 PM CDT) SODIUM S/P/B 141 136 - 145 MMOL/L 09/11/2025 10:07 AM CDT -[facility] POTASSIUM S/P/B 4.1 3.5 - 5.1 MMOL/L 09/11/2025 10:07 AM CDT [facility] CHLORIDE S/P/B 103 98 - 107 MMOL/L 09/11/2025 10:07 AM CDT -[facility] CO2 30.3 21 - 32 MMOL/L 09/11/2025 10:07 AM CDT -[facility] GLUCOSE 86 70 - 99 MG/DL 09/11/2025 10:07 AM CDT -[facility] BUN 17 7 - 18 MG/DL 09/11/2025 10:07 AM CDT -[facility] CREATININE S/P/B 0.75 0.55 - 1.02 MG/DL 09/11/2025 10:07 AM CDT -[facility] CALCIUM S/P/B 8.8 8.4 - 10.5 MG/DL 09/11/2025 10:07 AM CDT -[facility] BILIRUBIN TOTAL S/P/B 0.4 0.2 - 1.0 MG/DL 09/11/2025 10:07 AM CDT [facility] ALKALINE PHOSPHATASE S/P/B 67 37 - 98 U/L 09/11/2025 10:07 AM CDT -[facility] AST 18 15 - 37 U/L 09/11/2025 10:07 AM CDT -[facility] ALT 41 14 - 59 U/L 09/11/2025 10:07 AM CDT [facility] TOTAL PROTEIN S/P/B 7.7 6.4 - 8.2 G/DL 09/11/2025 10:07 AM T [facility] ALBUMIN S/P/B 4.1 3.4 - 5.0 G/DL 09/11/2025 10:07 AM CDT [facility] ANION GAP 7.7 5 - 15 MMOL/L 09/11/2025 10:07 AM CDT [facility] Comment:REFERENCE RANGE NOT ESTABLISHED OSMOLALITY (CALC) 293 MOSM/KG 025 10:07 AM T [facility] Comment:REFERENCE RANGE NOT ESTABLISHED GFR ESTIMATE >90 >90 ML/MIN/1. 73 M2 09/11/2025 10:07 AM T [facility] GFR NOTES GFR REFERENCE S: 09/11/2025 10:07 AM T [facility] Comment: THE ESTIMATED GFR IS CALCULATED USING THE 2020 CKD-EPI EQUATION. THE FOLLOWING CATEGORIES FOR GRADING RENAL FUNCTION ARE RECOMMENDED BY THE INTERNATIONAL SOCIETY OF NEPHROLOGY (KDIGO 2012 CLINICAL PRACTICE GUIDELINE). G1,NORMAL OR HIGH: >89 ml/min/1.73 m2 G2,MILDLY DECREASED: 60-89 ml/min/1.73 m2 G3A,MILDLY TO MODERATELY DECREASED: 45-59 ml/min/1.73 m2 G3B,MODERATELY TO SEVERELY DECREASED: 30-44 ml/min/1.73 m2 G4,SEVERELY DECREASED: 15-29 ml/min/1.73 m2 G5,KIDNEY FAILURE: <15 ml/min/1.73 m2 09/10/2025 4:26 PM CDT us Troy Funes DO LABORATORY Final Re sult [facility] [address] [place] [address], * (ABNORMAL) CBC W/DIFF AUTOMATED (09/10/2025 4:26 PM CDT) [facility] WBC 7.69 4.00 - 10.80 x10'3/uL 09/10/2025 8:07 PM CDT [facility] RBC 4.44 4.10 - 5.40 x10'6/uL 09/10/2025 8:07 PM CDT [facility] HGB 13.9 12.0 - 16.0 G/DL 09/10/2025 8:07 PM CDT [facility] HCT 40.9 36.0 - 47.0 % 09/10/2025 8:07 PM CDT [facility] MCV 92.1 78.0 - 100.0 FL 09/10/2025 8:07 PM CDT [facility] MCH 31.3(H) 27.0 - 31.0 PG 09/10/2025 8:07 PM CDT [facility] MCHC 34.0 33.0 - 36.0 G/DL 09/10/2025 8:07 PM CDT [facility] RDW 11.5 11.5 - 14.5 % 09/10/2025 8:07 PM CDT [facility] PLT 227 150 - 350 x10'3/uL 09/10/2025 8:07 PM CDT [facility] MPV 10.9(H) 7.4 - 10.4 FL 09/10/2025 8:07 PM CDT [facility] DIFFERENTIAL TYPE AUTOMATED DIFFERENTIAL 09/10/2025 8:07 PM CDT [facility] NEUTROPHILS % 61.1 % 09/10/2025 8:07 PM CDT [facility] LYMPHOCYTES % 24.7 % 09/10/2025 8:07 PM CDT [facility] MONOCYTES % 9.2 % 09/10/2025 8:07 PM CDT [facility] EOSINOPHILS % 4.2 % 09/10/2025 8:07 PM CDT [facility] BASOPHILS % 0.7 % 09/10/2025 8:07 PM CDT [facility] IMMATURE GRANS % 0.1 % 09/10/2025 8:07 PM CDT [facility] ABS. NEUTROPHILS 4.70 1.60 - 8.30 x10'3/uL 09/10/2025 8:07 PM CDT [facility] ABS. LYMPHOCYTES 1.90 0.80 - 4.70 x10'3/uL 09/10/2025 8:07 PM CDT [facility] ABS. MONOCYTES 0.71 0.00 - 1.50 x10'3/uL 09/10/2025 8:07 PM CDT [facility] ABS. EOSINOPHILS 0.32 0.00 - 0.40 x10'3/uL 09/10/2025 8:07 PM CDT [facility] ABS. BASOPHILS 0.05 0.00 - 0.20 x10'3/uL 09/10/2025 8:07 PM CDT [facility] ABS. IMMATURE GRANULOCYTES 0.01 0.00 - 0.03 x10'3/uL 09/10/2025 8:07 PM CDT [facility] 09/10/2025 4:26 PM CDT Troy Funes DO LABORATORY Final Re sult [facility] [address] [place] [address], * PAP SMEAR WITH HPV (06/16/2024) 06/16/2024 us [facility] Scanned SCANNING Final Resu lt * HEPATITIS C ANTIBODY ([facility] ONLY) (03/19/2023 12:00 AM CDT) 03/19/2023 us Troy Funes DO LABORATORY Final Re sult [facility] ON[facility] from Last 3 Months or Most Recently Relevant to Health Maintenance Insurance [employer] Care Teams Director Of Research And Development Relationship Specialty Start Date End Date Troy Funes DO [facility] [place] [address] PCP - General FAMILY PRACTICE 01/30/20
--- OUTSIDE RECORDS SUMMARY | 2025-11-25 16:09 | XMS_ITS | Encounter Summary ---
Author Organization [facility] Address [facility] [place] [address] Care Team Providers Care Salt Miner Name Role Phone Troy Funes DO Primary Care Provider + Encounter Details Date Type Department Care Team (Late st Contact Info) Description 10/26/2023 Tokutekt Message Enc [facility] Family & Internal Medicine [facility] [address] [place] [address] Troy Funes DO [facility] [place], [place] [phone] Dizziness and motion sickness Social History Tobacco [...] PM CDT Legal Sex Female 2:45 PM GRANITE BLOCK PAVER Gender Identity Female 09/10/2025 1:54 PM CDT [...] Total Score: 1 10/15/20 22 12:59 PM GRANITE BLOCK PAVER documented as of this encounter Care Teams Salt Miner Relationship Specialty Start Date End Date Troy Funes, [facility] [place] [address] PCP - General FAMILY PRACTICE 01/30/20 documented as of this encounter
--- OUTSIDE RECORDS SUMMARY | 2025-11-25 16:09 | XMS_ITS | Encounter Summary ---
Author Organization [facility] Address [facility] [place] [address] Care Team Providers Care Duty Engineer Name Role Phone Jose Eliasmaria [email or web address] Troy Jean MORENO Primary Care Provider + Encounter Details Date Type Department Care Team (Late st Contact Info) Description 03/29/2023 [employer]astingst Message Enc [facility] Family & Internal Medicine [facility] [address] [place] [address] Millicent Garner APNP [address] [place], [place] [phone] Cancel appointment no longer need Social History [...] PM CDT Legal Sex Female 2:45 PM MENTAL HYGIENIST Gender Identity Female 09/10/2025 1:54 PM CDT [...] Total Score: 1 10/15/20 22 12:59 PM MENTAL HYGIENIST documented as of this encounter Care Teams Duty Engineer Relationship Specialty Start Date End Date Troy Funes DO [address] [place] [id number] PCP - General FAMILY PRACTICE 01/30/20 documented as of this encounter
--- OUTSIDE RECORDS SUMMARY | 2025-11-25 16:09 | XMS_ITS | Encounter Summary ---
Author Organization [facility] Address [facility] [place] [address] Care Team Providers Care Carpenter Labor Supervisor Name Role Phone Troy Funes DO Primary Care Provider + Encounter Details Date Type Department Care Team (Late st Contact Info) Description 06/28/[address] [facility] Family & Internal Medicine [facility] [address] [place] [address] Troy Funes DO [facility] [place], [place] [phone] [employer] eye Social History Tobacco Use Types Packs/Day [...] PM CDT Legal Sex Female 2:45 PM TRANSCRIPTION COORDINATOR Gender Identity Female 09/10/2025 1:54 PM CDT [...] Total Score: 1 10/15/20 22 12:59 PM TRANSCRIPTION COORDINATOR documented as of this encounter Care Teams Carpenter Labor Supervisor Relationship Specialty Start Date End Date Troy Funes DO [address] [place] [address] PCP - General FAMILY PRACTICE 01/30/20 documented as of this encounter
--- OUTSIDE RECORDS SUMMARY | 2025-11-25 16:09 | XMS_ITS | Encounter Summary ---
Author Organization [facility] Address [address] [place] [address] Care Team Providers Care Obstetrician Gynecologist Name Role Phone Troy Funes DO Primary Care Provider + Reason for Visit * Reason Onset Date Comments Question 02/15/2025 Encounter Details Date Type Department Care Team (Late st Contact Info) Description 02/15/2025 Muutt Message Enc [facility] Family & Internal Medicine [facility] [address] [place] [address] Troy Funes DO [address] [place] [address] Strep throat Social History Tobacco [...] PM CDT Legal Sex Female 2:45 PM JEWEL BEARING MAKER Gender Identity Female 09/10/2025 1:54 PM CDT [...] Total Score: 1 10/15/20 22 12:59 PM JEWEL BEARING MAKER documented as of this encounter Care Teams Obstetrician Gynecologist Relationship Specialty Start Date End Date Troy Funes DO [address] [place] [address] PCP - General FAMILY PRACTICE 01/30/20 documented as of this encounter
--- OUTSIDE RECORDS SUMMARY | 2025-11-25 16:09 | XMS_ITS | Clinical Summary ---
Author Organization [facility] Address [address] [facility] [place] [address] Care Team Providers Care Coremaker Bench Name Role Phone Unavailable Primary Care Provider Unavailabl e Source Comments [facility],non-owned Affiliates and Associated Physician Practices is amultiple site organization consisting of ambulatory clinics and hospital sitesin [place], [place], [place] and [place]. This disclosure is being madepursuant to the Care Everywhere program and may not contain all information available regarding this patient. Last updated 18.[facility] [employer] Social History Tobacco Use Types Packs/Day Years [...] series) 2018 DEPRESSION SCREENING 11/29/2024 COVID-19 VACCINE (1 - 2024-2 6 season) 2025 INFLUENZA VACCINE [...] patient's age to complete this topic Insurance [facility]
--- OUTSIDE RECORDS SUMMARY | 2025-11-25 16:09 | XMS_ITS | Clinical Summary ---
Author Organization [facility] [address] [place], [place] [address]Y [address] [address] Care Team Providers Care Swim Instructor Name Role Phone Unavailable Primary Care Provider [...] times daily. 35 Tablet 10/14/2022 6:53 PM PRESCRIPTION CLERK 10/14/2022 Active amoxicillin-cla vulanate (AUGMENTIN) 875-125 mg tablet Take 1 tablet (875 mg total) by mouth 2 (two) times daily for 10 days. 20 Tablet 10/15/2022 5:21 PM PRESCRIPTION CLERK 10/15/2022 Active vitamin-iron fumarate-folic acid 27 mg-0.8 mg Tablet Take 1 Capsule by mouth daily. Active ascorbic acid, vitamin C, (VITAMIN C) 1,000 mg Tablet Take 1,000 mg by mouth daily. Active fluticasone propionate (FLONASE) 50 mcg/spray [place], Suspension nasal inhaler 09/29/2021 Activ e amoxicillin-cla vulanate (AUGMENTIN) 875-125 mg tablet Take 1 tablet by mouth 2 (two) times a day for 7 days 14 Tablet 03/27/2023 9:50 AM CDT 03/27/2023 Active meclizine (ANTIVERT) 25 mg tablet Take 1 Tablet (25 mg) by mouth 3 times daily as needed. 30 Tablet 11/01/2023 8:45 AM PRESCRIPTION CLERK 10/27/2023 Active HYDROcodone-troy taminophen (NORCO) 5-325 mg tablet Take 1-2 Tablets by mouth every 6 hours as needed. Max Daily Amount: 8 Tablets 10 Tablet 11/03/2023 2:55 PM PRESCRIPTION CLERK 11/03/2023 Active ibuprofen (MOTRIN) 600 mg tablet Take 1 Tablet (600 mg) by mouth every 6 hours as needed. 20 Tablet 11/03/2023 2:55 PM PRESCRIPTION CLERK 11/03/2023 Active chlorhexidine gluconate 0.12 % Mouthwash SWISH GENTLY 30 SECONDS WITH 20 ML EVERY 8 HOURS 473 mL 11/08/2023 3:02 PM PRESCRIPTION CLERK 11/08/2023 Active cyclobenzaprine (FLEXERIL) 10 mg tablet Take 1 Tablet (10 mg) by mouth 3 times daily as needed for muscle spasm. 20 Tablet 06/05/2024 5:46 PM CDT 06/05/2024 Active amoxicillin (AMOXIL) 500 mg capsule Take 1 Capsule (500 mg) by mouth every 12 hours until all doses are taken. 20 Capsule 10/19/2024 11:14 AM PRESCRIPTION CLERK 10/19/2024 Active azithromycin (Zithromax Z-Myron) 250 mg tablet Take 2 tablets by mouth on day 1, then take 1 tablet by mouth daily for days 2-5 6 Tablet 12/26/2024 6:11 PM PRESCRIPTION CLERK 12/26/2024 Active ibuprofen (MOTRIN) 600 mg tablet [...] once daily as needed 50 mL 6 10/31/2025 1:17 PM PRESCRIPTION CLERK 10/29/2025 Active clobetasoL (TEMOVATE) 0.05 % Ointment Apply to feet twice daily as needed. 60 Gram 6 10/31/2025 1:17 PM PRESCRIPTION CLERK 10/29/2025 Active Active Problems No known active problems Encounters Date Type Department Care Team Description 11/20/2025 External Device Data ST[facility] ABSTRACTION Provider, Abstract 09/18/2025 External Device Data ST[facility] ABSTRACTION Provider, [...] Comments Blood Pressure 106/70 10/17/2022 8:29 AM PRESCRIPTION CLERK Pulse 85 10/17/2022 8:29 AM PRESCRIPTION CLERK Temperature 36.6 C (97.8 F) 10/17/2022 8:29 AM PRESCRIPTION CLERK Respiratory Rate 14 10/17/2022 8:29 AM PRESCRIPTION CLERK Oxygen Saturation 99% 10/17/2022 8:29 AM PRESCRIPTION CLERK Inhaled Oxygen Concentration - - Weight 62.1 kg (136 lb 12.8 oz) 10/17/2022 8:29 AM PRESCRIPTION CLERK Height 160 cm (5' 3) 10/17/2022 8:29 AM PRESCRIPTION CLERK Body Mass Index 24.23 10/17/2022 8:29 AM PRESCRIPTION CLERK Plan of Treatment Health Maintenance Due Date Last Done Comments HPV/Cotest (21-29) 2012 CERVICAL CANCER SCREENING 2021 HPV/Cotest (30-65) 2021 PAP SMEAR 2021 INFLUENZA VACCINE (#1) 2025 9, 08/26/2016, 10/10/2015 DTAP/TDAP/TD VACCINES (10 - Td or Tdap) 01/29/2030 01/30/2020, 05/05/2018, 03/18/2015, Additional history exists HEPATITIS B VACCINES Completed 03/17/2001, 12/09/2000, 10/07/2000 HPV VACCINES Completed 10/02/2009, 02/2009, 02/27/2009 Insurance CHOICE [id number] RX [employer] PL[employer] (INTERNAL) [facility] [employer] [facility] [employer]
--- OUTSIDE RECORDS SUMMARY | 2025-11-25 16:09 | XMS_ITS | Encounter Summary ---
Author Organization [facility] Address [facility] [place] [address] Care Team Providers Care Office Electrician Name Role Phone Troy Funes DO Primary Care Provider + Reason for Visit * Reason Onset Date Comments Question 11/08/2024 Encounter Details Date Type Department Care Team (Late st Contact Info) Description 11/08/2024 Anturis Message Enc [facility] Medical Group Family & Internal Medicine [facility] [address] [place] [address] Troy Funes DO [address] [place] [address] Strep throat Social History Tobacco [...] PM CDT Legal Sex Female 2:45 PM METAL GRADER Gender Identity Female 09/10/2025 1:54 PM CDT Sexual Orientation Not on file 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 L GRADER * Kim Ghosh - 11/09/2024 1:26 PM CST Patient is unsure of the name of the antibiotics she was on, she thinks it was something friendly that started with an A that was 2 times daily. Patient is still . L GRADER * Troy Funes DO - 11/09/2024 9:39 AM CST Please clarify what abx she took, for how long, and if she is still . I do not see it in PDMP. L GRADER documented in this encounter Plan of Treatment Not on file documented as of this encounter Visit Diagnoses Diagnosis Strep throat- Primary Streptococcal sore throat documented in this encounter Additional Health Concerns Assessment Noted Time PHQ-9 Depression Total Score: 1 10/15/20 22 12:59 PM METAL GRADER documented as of this encounter Care Teams Office Electrician Relationship Specialty Start Date End Date Troy Funes DO [address] [place] [address] PCP - General FAMILY PRACTICE 01/30/20 documented as of this encounter
[2025-11-25 16:14] VITALS: BP 126/71; PULSE 78; RESP 20; TEMP 36.6; O2SAT 99
[2025-11-25 16:27] LABS: EDSTREPNEGPOS1 Negative (Negative)
--- NOTE | 2025-11-25 16:34 | ED_ITS ---
HPI - URI/Sore Throat General Chief Complaint: Upper Respiratory Infection Stated Complaint: ear infection/strep throat Time Seen by Provider: 11/25/25 16:20 Source: patient and RN notes reviewed Mode of arrival: ambulatory Limitations: no limitations History of Present Illness HPI Narrative: 35-year-old female presents [facility] complaining upper respiratory symptoms for last 10 days. Patient reports cough, congestion, bilateral ear pain tender lymph nodes. Patient denies any other upper respiratory symptoms, fevers, body aches chills, nausea, vomiting, diarrhea, chest pain, breathing problems, or other symptoms. Patient currently . Patient denies any significant past medical problems. Related Data Home Medications ?Medication ?Instructions ?Recorded ?Confirmed ?Last Taken ?Type docosahexaenoic acid 200 mg mg PO 06/04/25 08/07/25 Un known History capsule ( DHA) Allergies Allergy/AdvReac Type Severity Reaction Status Date / Time Sulfa (Sulfonamide Allergy Mild Rash Verified 11/25/25 16:17 Antibiotics) Review of Systems Review of Systems: CONSTITUTIONAL: Denies fever, chills, or sweats. EYES: Denies visual changes, redness, or discharge. ENT: Denies rhinorrhea,, sore throat. Positive for congestion, sinus pressure, otalgia. CARDIOVASCULAR: Denies chest pain, palpitations, or edema. RESPIRATORY: Positive for cough. Negative for wheezing or dyspnea. GASTROINTESTINAL: Denies abdominal pain, nausea, vomiting, or diarrhea. GENITOURINARY: Denies dysuria or hematuria. SKIN: Denies rash or itching. MUSCULOSKELETAL: Denies back pain, joint pain, or myalgia. NEUROLOGIC: Denies headache, numbness, or weakness. PSYCHIATRIC: Denies anxiety or depression. All other systems reviewed are negative, except as documented in HPI. [facility] Past Medical History Medical History Strep throat Surgical History Surgical History History of tonsillectomy Status post wisdom tooth extraction Family History Family History Mother Hypertension Father Hypertension Grandparent Diabetes mellitus Social History Social History Smoking status: Never smoker Second hand tobacco smoke exposure: No Substance use: never Lack of Transportation: No Lack of Food: Never True Current Housing: I Have Housing Concerned About Future Housing: No Difficulty Paying Gas/Electric Bills: No Difficulty Paying for Meds: No Currently Unemployed: No Education: Associate Degree Difficulty w/ Childcare or Family Care: No Gender identity (if verbalized by the patient): Female Spiritual care concerns: No Comments At the time of my signature, I reviewed and agree with the nursing past medical, surgical, social, and family history. There is no relevant family history pertinent to the patient complaint. Exam Narrative: GENERAL: This is a well-nourished, well-developed adult, in no apparent distress. They are non ill-appearing, nontoxic appearing. HEAD: normocephalic, atraumatic. EYES: Sclera clear/white. Conjunctiva normal. Vision is grossly intact. Extraocular movements intact EARS: External ears normal, auditory canals clear and without drainage, left TM normal without perforation. Right TM erythematous with suppuration. No perforation. Hearing grossly intact. NOSE: External nose normal with no obvious nasal discharge, nasal turbinates erythematous, no rhinorrhea. THROAT: Mucous membranes moist, posterior pharynx erythematous. PND present. Tonsils erythematous in 2+. No exudate. Uvula midline. NECK: Neck supple, non-tender without lymphadenopathy, masses or thyromegaly. CARDIOVASCULAR: Regular rate and rhythm without murmurs, gallops, or rubs. RESPIRATORY: Clear to auscultation. Breath sounds equal bilaterally. No wheezes, rales, or rhonchi. SKIN: warm, Dry, intact with no suspicious lesions or rash, good texture and turgor. NEURO: awake, alert, and oriented to person, place and time. There were no obvious focal neurologic abnormalities. EXTREMITIES: No joint tenderness, effusion, or edema noted. BACK: Nontender without deformity. Course Course Level of Care: Express Care Visit Vital Signs Vital signs: Vital Signs Temperature 97.8 F 11/25/25 16:14 Pulse Rate 78 11/25/25 16:14 Respiratory Rate 20 11/25/25 16:14 Blood Pressure 126/71 11/25/25 16:14 Pulse Oximetry 99 11/25/25 16:14 Oxygen Delivery Room Air 11/25/25 16:14 Temperature 97.8 F 11/25/25 16:14 Pulse Rate 78 11/25/25 16:14 Respiratory Rate 20 11/25/25 16:14 Blood Pressure 126/71 11/25/25 16:14 Pulse Oximetry 99 11/25/25 16:14 Oxygen Delivery Room Air 11/25/25 16:14 [facility] Narrative Medical decision making narrative: Rapid strep negative. Throat culture is pending. Given patient's length of symptoms likely has bacterial sinusitis, also appears patient has right-sided otitis media. Will treat with Augmentin. Discussed physical exam findings. Advised supportive measures and signs/symptoms to go to the ER. Pt is appropriate for outpt treatment and f/u. Differential Diagnosis Differential Diagnosis: Differential diagnostic considerations for upper respiratory infection include upper respiratory infection, croup, otitis media, sinusitis, viral infection, bronchitis, influenza, pharyngitis, strep, uvulitis. Lab Data [facility] Lab Attestation statement: I personally reviewed the patient's lab results. Labs: Lab Results 11/25/25 Range/Units 16:16 POC Grp A Strep Screen Negative (Negative) Critical Care Time Critical Care Time Critical Care Time: No Discharge Plan Discharge Clinical Impression: Sinusitis Qualifiers: Sinusitis location: unspecified location Chronicity: acute Recurrence: non- recurrent Qualified Code(s): J01.90 - Acute sinusitis, unspecified Otitis media Qualifiers: Otitis media type: suppurative Chronicity: acute Laterality: right Recurrence: non-recurrent Spontaneous tympanic membrane rupture: without spontaneous rupture Qualified Code(s): H66.001 - Acute suppurative otitis media without spontaneous rupture of ear drum, right ear Patient Disposition: Home Condition: Stable Instructions: Antibiotic Form, Sinusitis (ED), Ear Infection (ED) Additional Instructions: Your rapid strep is negative today. A throat culture be sent off it is positive for strep you will be contacted. Appears to have a sinus infection ear infection. Take the antibiotics as directed and complete the course even if you start to feel better. You may use a Neti pot saline rinse 3 times a day with lukewarm distilled water Continue to take Tylenol or Motrin as needed for pain or fevers. Use a humidifier or vaporizer at night. Drink plenty of water. 8-10 glasses per day. Use flonase 2 times per day for 5 days then as needed Follow up with Primary provider in 3-5 days Please go to the ER if he develops any difficulty breathing, chest pain, vomiting, worsening symptoms, or any other concerns Patient Language: Palestinian Prescriptions: New amoxicillin-pot clavulanate 875-125 mg tablet 1 tablet PO Q12H 7 Days Qty: 14 0RF No Action DHA 200 mg capsule PO Follow-up/Referrals: PHYSICIAN NOT ON STAFF,NONSTAFF [Primary Care Provider] Time of Disposition: 16:32
== END 2025-11-25 16:40 | disposition home or self-care (01) ==
DX: J01.90 Acute sinusitis, unspecified (principal); H66.001 Acute suppurative otitis media without spontaneous rupture of ear drum, right ear
CPT/HCPCS: 87081; 87880; 99213; G0463